=== PATIENT | male | born 1945 | race African-American/Black ===

== ENCOUNTER 2020-08-25 10:06 | Inpatient (IN) | payer BC ==
[~2020-08-25] VITALS: Ht 170.2 cm; Wt 89.8 kg
[2020-08-25 10:52] VITALS: BP 161/66
--- NOTE | 2020-08-25 10:57 | Emergency Room Report ---
History of Present Illness General Chief Complaint: Upper Respiratory Illness Source: Patient Present Illness HPI Disclaimer: Please note that this report is being documented using [employer] technology. This can lead to erroneous entry secondary to incorrect interpretation by the dictating instrument. HPI: 75-year-old male history of diabetes and hypertension presents for evaluation of shortness of breath. He reports 1 week of fatigue, decreased appetite, cough and shortness of breath that is progressively worse. Tested for COVID-19 outpatient 2 days ago but results are not yet available. Subjective fevers noted. Reports chills. Saturating 80% on initial triage. Non-smoker. No history of COPD or lung disease. Does not use inhalers. Denies chest pain, palpitations. PMH: Hypertension, diabetes PSH: Reviewed Allergies: Reviewed Social Hx: Non-smoker Allergies: Coded Allergies: No Known Allergies (Unverified , 08/25/20) COVID-19 Screening Contact w/high risk pt: Yes Experienced COVID-19 symptoms?: Yes COVID-19 Testing performed HOSPITAL INSURANCE REPRESENTATIVE: No Nursing Documentation-PMH Hx Hypertension: Yes Hx Diabetes: Yes Review of Systems All Other Systems: negative except mentioned in HPI Physical Exam Vital Signs Date Time Temp Pulse Resp B/P (MAP) Pulse Ox O2 Delivery O2 Flow Rate FiO2 08/25/20 10:48 98.4 79 24 161/66 (97) 80 Room Air General: Awake and alert, no acute distress HEENT: NC/AT. EOMI. Cardiovascular: RRR. S1 and S2 normal. No murmur appreciated Resp: Tachypnea. Increased work of breathing. No cough. No wheezes. Faint crackles bilaterally. 80% on room air improved to 92% on nasal cannula. Abdomen: Abdomen is soft, nondistended. Nontender Skin: Intact. No abrasions, laceration or rash over the exposed skin MSK: Normal tone and bulk. Moving all extremities. No obvious deformity. Neuro: Awake and alert. Mentating appropriately. Procedures Critical Care Time Critical Care Time Total critical care time: Approximately 45 minutes Due to a high probability of clinically significant, life threatening deterior ation, the patient required the highest level of preparedness to intervene emergently and I personally spent this critical care time directly and personally managing the patient. This critical care time included obtaining a history, examining the patient, pulse oximetry, ordering and reviewing studies, ordering treatments, evaluating response to treatment and updating management pl an as needed, frequent reassessment and discussion with other providers as well as arranging for ultimate disposition. This critical to care time was performed to assess and manage the high probability of life-threatening deterioration that could result in multiorgan failure. This critical care time is separate from the separately billable procedures and treating other patients. Medical Decision Making Diagnostic Impression: Primary Impression: COVID-19 Additional Impressions: Hypoxia Pneumonia Elevated d-dimer ER Course Is a 75-year-old male presenting for evaluation of shortness of breath fatigue and overall flulike illness. Concern for COVID-19, influenza, pneumonia, viral syndrome among others. Patient arrived hypoxic saturating 80% on room air but improved with nasal cannula. Bilateral infiltrates on chest x-ray concerning for pneumonia. Antibiotics are started. No white count but there is a neutrophil predominance. Chemistry shows critically low potassium of 2.6. Patient started on IV and oral replacement. Renal function within normal limits as is lactic acid and troponin. Inflammatory markers are positive and rapid COVID-19 swab is positive. Urinalysis unremarkable. D-dimer slightly elevated 0.97 patient was given Lovenox. Admitted to Dr. Combs who is the assigned hospitalist of the patient's health plan. Laboratory Tests Test 08/25/20 11:30 White Blood Count 7.8 K/UL (4.8-10.8) Red Blood Count 4.18 M/UL (4.70-6.10) L Hemoglobin 12.8 G/DL (14.2-18.0) L Hematocrit 34.9 % (42.0-52.0) L Mean Corpuscular Volume 84 FL (80-99) Mean Corpuscular Hemoglobin 30.5 PG (27.0-31.0) Mean Corpuscular Hemoglobin Concent 36.6 G/DL (32.0-36.0) H Red Cell Distribution Width 13.4 % (11.6-14.8) Platelet Count 377 K/UL (150-450) Mean Platelet Volume 6.7 FL (6.5-10.1) Neutrophils (%) (Auto) 85.0 % (45.0-75.0) H Lymphocytes (%) (Auto) 10.0 % (20.0-45.0) L Monocytes (%) (Auto) 5.0 % (1.0-10.0) Eosinophils (%) (Auto) % (0.0-3.0) Basophils (%) (Auto) % (0.0-2.0) Prothrombin Time 10.5 SEC (9.30-11.50) Prothrombin Time INR 0.9 (0.9-1.1) Activated Partial Thromboplast Time 36 SEC (23-33) H D-Dimer 0.97 mg/L FEU (0.00-0.49) H Urine Color Yellow Urine Appearance Clear Urine pH 6 (4.5-8.0) Urine Specific [place] 1.015 (1.005-1.035) Urine Protein 4+ (NEGATIVE) H Urine Glucose (UA) 4+ (NEGATIVE) H Urine Ketones 2+ (NEGATIVE) H Urine Blood 4+ (NEGATIVE) H Urine Nitrite Negative (NEGATIVE) Urine Bilirubin Negative (NEGATIVE) Urine Urobilinogen 1 MG/DL (0.0-1.0) H Urine Leukocyte Esterase Negative (NEGATIVE) Urine RBC 30-40 /HPF (0 - 0) H Urine WBC 0-2 /HPF (0 - 0) Urine Squamous Epithelial Cells Occasional /LPF Urine Bacteria Few /HPF (NONE) Sodium Level 134 MMOL/L (136-145) L Potassium Level 2.6 MMOL/L (3.5-5.1) *L Chloride Level 97 MMOL/L (98-107) L Carbon Dioxide Level 28 MMOL/L (21-32) Anion Gap 10 mmol/L (5-15) Blood Urea Nitrogen 10 mg/dL (7-18) Creatinine 0.9 MG/DL (0.55-1.30) Estimated Glomerular Filtration Rate > 60 mL/min (>60) Glucose Level 285 MG/DL (74-106) H Lactic Acid Level 1.70 mmol/L (0.4-2.0) Calcium Level 8.6 MG/DL (8.5-10.1) Phosphorus Level 2.7 MG/DL (2.5-4.9) Magnesium Level 1.6 MG/DL (1.8-2.4) L Ferritin 329 NG/ML (8-388) Total Bilirubin 0.5 MG/DL (0.2-1.0) Aspartate Amino Transferase (AST) 42 U/L (15-37) H Alanine Aminotransferase (ALT) 32 U/L (12-78) Alkaline Phosphatase 118 U/L (46-116) H Lactate Dehydrogenase 321 U/L (81-234) H Total Creatine Kinase 307 U/L (26-308) Creatine Kinase MB 0.5 NG/ML (0.0-3.6) Creatine Kinase MB Relative Index 0.1 Troponin I 0.000 ng/mL (0.000-0.056) C-Reactive Protein, Quantitative 42.0 mg/dL (0.00-0.90) H Pro-B-Type Natriuretic Peptide 727 pg/mL (0-125) H Total Protein 7.5 G/DL (6.4-8.2) Albumin 2.1 G/DL (3.4-5.0) L Globulin 5.4 g/dL Lipase 64 U/L (73-393) L Microbiology Date/Time Source Procedure Growth Status 08/25/20 11:30 Nasopharynx SARS-CoV-2 RdRp Gene Assay - Final Complete 08/25/20 11:20 Nasal Nares - Final Complete 08/25/20 11:20 Nasal Nares - Final Complete EKG Diagnostic Results Troponin ordered: Yes When was troponin ordered?: Aug 25, 2020 EKG Time: 11:46 Rate: normal Rhythm: NSR ST Segments: no acute changes Other Impression Sinus rhythm, normal axis, prolonged QTC at [address] segment changes. Rhythm Strip Diag. Results Rhythm Strip Time: 11:46 EP Interpretation: yes Rate: 75 Rhythm: NSR, no PVC's, no ectopy Chest X-Ray Diagnostic Results Chest X-Ray Diagnostic Results : Chest X-Ray Ordered: Yes # of Views/Limited/Complete: 1 View Indication: Shortness of Breath EP Interpretation: Yes Interpretation: no effusion, no pneumothorax, other - Bilateral infiltrates Impression: Other - Bilateral pneumonia Electronically Signed by: Electronically signed by Dr. Ney Walker MD Last Vital Signs Date Time Temp Pulse Resp B/P (MAP) Pulse Ox O2 Delivery O2 Flow Rate FiO2 08/25/20 10:52 79 24 Room Air 08/25/20 10:52 98.4 161/66 80 Disposition: ADMITTED INPATIENT Condition: Serious Referrals: NON PHYSICIAN (PCP) Ney Walker MD Aug 25, 2020 10:57
[2020-08-25] MEDS ORDERED: dexAMETHasone 10mg/ml Inj IV ONE (11:00)
[2020-08-25] MEDS ORDERED: Azithromycin 500 MG in NS 275 ML IVPB ONE (11:00)
[2020-08-25] MEDS ORDERED: cefTRIAXone 1 GM in NS 55 ML IV ONE (11:00)
[2020-08-25 11:46] LABS: HEMATOCRIT 34.9 % (42.0-52.0); HEMOGLOBIN 12.8 G/DL (14.2-18.0); MEAN CORPUSCULAR VOLUME 84 FL (80-99); PLATELET COUNT 377 K/UL (150-450); RED BLOOD COUNT 4.18 M/UL (4.70-6.10); RED CELL DISTRIBUTION WIDTH 13.4 % (11.6-14.8); WHITE BLOOD COUNT 7.8 K/UL (4.8-10.8)
[2020-08-25 11:50] LABS: APPEARANCE,URINE CLEAR; BILIRUBIN, URINE NEGATIVE (NEGATIVE); GLUCOSE, URINE (UA) 4+ (NEGATIVE); KETONES,URINE 2+ (NEGATIVE); LEUKOCYTE ESTERASE ,URINE NEGATIVE (NEGATIVE); NITRITE,URINE NEGATIVE (NEGATIVE); PH,URINE 6 (4.5-8.0); PROTEIN,URINE 4+ (NEGATIVE); UROBILINOGEN,URINE 1 MG/DL (0.0-1.0)
[2020-08-25 11:52] LABS: COLOR,URINE YELLOW
[2020-08-25 11:57] LABS: INR 0.9 (0.9-1.1)
[2020-08-25] MEDS ORDERED: Enoxaparin 60mg Inj SUBQ ONE (12:15)
[2020-08-25 12:29] LABS: ALANINE AMINOTRANSFERASE 32 U/L (12-78); ALBUMIN 2.1 G/DL (3.4-5.0); ALKALINE PHOSPHATASE 118 U/L (46-116); ANION GAP 10 mmol/L (5-15); ASPARTATE AMINO TRANSFERASE 42 U/L (15-37); BILIRUBIN,TOTAL 0.5 MG/DL (0.2-1.0); BLOOD UREA NITROGEN 10 mg/dL (7-18); CALCIUM 8.6 MG/DL (8.5-10.1); CARBON DIOXIDE 28 MMOL/L (21-32); CHLORIDE 97 MMOL/L (98-107); CKMB 0.5 NG/ML (0.0-3.6); CREATINE KINASE 307 U/L (26-308); CREATININE 0.9 MG/DL (0.55-1.30); FERRITIN 329 NG/ML (8-388); LACTATE DEHYDROGENASE 321 U/L (81-234); PHOSPHORUS 2.7 MG/DL (2.5-4.9); SODIUM 134 MMOL/L (136-145)
[2020-08-25 12:30] LABS: POTASSIUM 2.6 MMOL/L (3.5-5.1)
[2020-08-25 13:30] VITALS: BP 159/76
--- NOTE | 2020-08-25 13:33 | Diagnostic Imaging Report ---
Indication: Shortness of breath Technique: One view of the chest Comparison: none Findings: Bilateral infiltrates in a peribronchovascular distribution are demonstrated. The heart size is upper limits normal. The pleural spaces are clear Impression: Bilateral infiltrates, likely multifocal pneumonia, quite possibly viral
[2020-08-25 18:05] VITALS: BP 169/80
[2020-08-25 20:00] VITALS: BP 157/96
[2020-08-25] MEDS: NovoLOG Insulin Flexpen SUBQ SCH (21:47)
[2020-08-25] MEDS ORDERED: Loading Dose:Remdesivir 200mg/NS 210ml IV SCH ×2 (22:00)
[2020-08-26] VITALS: BP 145/81
[2020-08-26 04:00] VITALS: BP 130/69
[2020-08-26] MEDS ORDERED: ACETAMINOPHEN-1 EAC1 ORAL (05:32)
[2020-08-26] MEDS ORDERED: IBUPROFEN600 M1 ORAL (05:32)
[2020-08-26] MEDS ORDERED: METOPROLOL SUC100 MG ORAL (05:32)
[2020-08-26] MEDS ORDERED: GLIPIZIDE5 MG ORAL (05:32)
[2020-08-26] MEDS ORDERED: JANUMET 50-1,01 EACH ORAL (05:32)
[2020-08-26] MEDS ORDERED: PROSCAR5 MG ORAL (05:32)
[2020-08-26] MEDS: NovoLOG Insulin Flexpen SUBQ SCH ×4 (06:27→21:04)
[2020-08-26 06:53] LABS: BASOPHILS % (AUTO) 0.4 % (0.0-2.0); HEMATOCRIT 36.4 % (42.0-52.0); HEMOGLOBIN 12.7 G/DL (14.2-18.0); LYMPHOCYTES % (AUTO) 12.6 % (20.0-45.0); MEAN CORPUSCULAR VOLUME 88 FL (80-99); MONOCYTES % (AUTO) 8.8 % (1.0-10.0); NEUTROPHILS % (AUTO) 78.3 % (45.0-75.0); PLATELET COUNT 422 K/UL (150-450); RED BLOOD COUNT 4.12 M/UL (4.70-6.10); RED CELL DISTRIBUTION WIDTH 13.1 % (11.6-14.8)
[2020-08-26 07:54] LABS: ALANINE AMINOTRANSFERASE 44 U/L (12-78); ALBUMIN/GLOBULIN RATIO 0.4 (1.0-2.7); ALKALINE PHOSPHATASE 125 U/L (46-116); ASPARTATE AMINO TRANSFERASE 48 U/L (15-37); BILIRUBIN,TOTAL 0.4 MG/DL (0.2-1.0); BLOOD UREA NITROGEN 16 mg/dL (7-18); CALCIUM 9.3 MG/DL (8.5-10.1); CARBON DIOXIDE 26 MMOL/L (21-32); CHLORIDE 99 MMOL/L (98-107); CREATININE 0.9 MG/DL (0.55-1.30); FERRITIN 361 NG/ML (8-388); SODIUM 138 MMOL/L (136-145)
[2020-08-26 08:00] VITALS: BP 121/86
[2020-08-26] MEDS: Enoxaparin 40mg Inj SUBQ SCH (09:08)
--- NOTE | 2020-08-26 10:37 | History and Physical ---
History of Present Illness General Date patient seen: Aug 26, 2020 Time patient seen: 08:00 Reason for Hospitalization: Upper Respiratory Illness Present Illness HPI 75 years old male, with past medical history of diabetes mellitus, hypertension, presented for evaluation due to shortness of breath. Patient reported one week of generalized weakness, fatigue, cough, worsening shortness of breath and decreased appetite. Patient was tested for COVID-19 two days ago in outpatient setting, but results not available yet. He reported subjective fever and chills. He denied chest pain or palpitations. He denied smoking . No history of COPD or lung disorder. Upon evaluation patient was hypoxic , slightly tachypneic with respiratory rate 24 ,blood pressure was elevated 161/66. Rapid COVID-19 was positive. Chest x-ray revealed bilateral infiltrates, likely multifocal pneumonia Laboratory work-up revealed no leukocytosis , stable hemoglobin , hematocrit and platelet count. Troponin negative, ECG revealed SR, no acute ischemic changes. D-dimer 0.97, LDH 321, CRP 42, ferritin 329. Chemistry showed hypokalemia with potassium 2.6. Stable renal parameters. Glucose 285. Urinalysis revealed +4 protein , +4 glucose, no evidence of urinary tract infection. In emergency department patient was placed on supplemental oxygen. He received empiric antibiotics/ ceftriaxone and azithromycin/, Lovenox , dexamethasone, potassium replacement and admitted for further management. Allergies: Coded Allergies: No Known Allergies (Unverified , 08/25/20) COVID-19 Screening Contact w/high risk pt: No Experienced COVID-19 symptoms?: Yes Coronavirus symptoms experienc: Shortness of Breath Medication History Scheduled Finasteride* (Proscar*), 5 MG ORAL DAILY, (Reported) Glipizide* (Glipizide*), 10 MG ORAL BIDAC, (Reported) Metoprolol Succinate* (Metoprolol Succinate*), 100 MG ORAL DAILY, (Reported) Sitagliptin Phos/Metformin Hcl (Janumet 50-1,000 Mg Tablet), 1 TAB ORAL TWICE A DAY, (Reported) Scheduled PRN Acetaminophen With Codeine (T#3) (Tylenol #3 Tab*), 1 TAB ORAL Q6H PRN for For Pain, (Reported) Ibuprofen* (Motrin*), 600 MG ORAL Q8H PRN for FOR PAIN, (Reported) Patient History Healthcare decision maker Resuscitation status Advanced Directive on File Review of Systems Constitutional: Reports: weakness - fatigue, Eye: Reports: no symptoms ENT: Reports: no symptoms Respiratory: Reports: see HPI, cough, shortness of breath Cardiovascular: Reports: no symptoms Gastrointestinal: Reports: other - poor appetite Genitourinary: Reports: no symptoms Musculoskeletal: Reports: no symptoms Skin: Reports: no symptoms Psychiatric: Reports: no symptoms Neurological: Reports: no symptoms Endocrine: Reports: other - hx of DM, Hematologic/Lymphatic: Reports: no symptoms Physical Exam General Appearance: no apparent distress Lines, tubes and drains: peripheral HEENT: normocephalic, atraumatic, anicteric, mucous membranes moist, PERRL, other - O2 5 L via NC Neck: supple Respiratory/Chest: chest wall non-tender, lungs clear, no accessory muscle use Cardiovascular/Chest: normal peripheral pulses, normal rate, regular rhythm - SR with some PAC Abdomen: normal bowel sounds, non tender, soft Extremities: normal range of motion, no calf tenderness, normal capillary refill Skin Exam: warm/dry 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, no motor/sensory deficits, alert, oriented x 3, responsive Musculoskeletal: normal muscle bulk Last 24 Hour Vital Signs Date Time Temp Pulse Resp B/P (MAP) Pulse Ox O2 Delivery O2 Flow Rate FiO2 08/26/20 07:43 Nasal Cannula 5.0 08/26/20 04:00 97.5 69 20 130/69 (89) 92 08/26/20 04:00 69 08/26/20 00:00 97.0 79 20 145/81 (102) 92 08/26/20 00:00 79 08/25/20 21:00 Nasal Cannula 5.0 08/25/20 20:00 97.9 87 20 157/96 (116) 97 08/25/20 20:00 87 08/25/20 18:05 98.2 88 20 169/80 (109) 96 08/25/20 17:32 Nasal Cannula 5.0 08/25/20 13:30 98.4 80 22 159/76 95 Nasal Cannula 3.0 08/25/20 10:52 79 24 Room Air 08/25/20 10:52 98.4 79 24 161/66 80 Room Air 08/25/20 10:48 98.4 79 24 161/66 (97) 80 Room Air Laboratory Tests Test 08/25/20 11:30 08/25/20 21:37 08/26/20 04:05 08/26/20 06:21 White Blood Count 7.8 K/UL (4.8-10.8) 6.0 K/UL (4.8-10.8) Red Blood Count 4.18 M/UL (4.70-6.10) L 4.12 M/UL (4.70-6.10) L Hemoglobin 12.8 G/DL (14.2-18.0) L 12.7 G/DL (14.2-18.0) L Hematocrit 34.9 % (42.0-52.0) L 36.4 % (42.0-52.0) L Mean Corpuscular Volume 84 FL (80-99) 88 FL (80-99) Mean Corpuscular Hemoglobin 30.5 PG (27.0-31.0) 30.8 PG (27.0-31.0) Mean Corpuscular Hemoglobin Concent 36.6 G/DL (32.0-36.0) H 34.8 G/DL (32.0-36.0) Red Cell Distribution Width 13.4 % (11.6-14.8) 13.1 % (11.6-14.8) Platelet Count 377 K/UL (150-450) 422 K/UL (150-450) Mean Platelet Volume 6.7 FL (6.5-10.1) 6.3 FL (6.5-10.1) L Neutrophils (%) (Auto) 85.0 % (45.0-75.0) H 78.3 % (45.0-75.0) H Lymphocytes (%) (Auto) 10.0 % (20.0-45.0) L 12.6 % (20.0-45.0) L Monocytes (%) (Auto) 5.0 % (1.0-10.0) 8.8 % (1.0-10.0) Eosinophils (%) (Auto) % (0.0-3.0) 0.0 % (0.0-3.0) Basophils (%) (Auto) % (0.0-2.0) 0.4 % (0.0-2.0) Prothrombin Time 10.5 SEC (9.30-11.50) Prothromb Time International Ratio 0.9 (0.9-1.1) Activated Partial Thromboplast Time 36 SEC (23-33) H D-Dimer 0.97 mg/L FEU (0.00-0.49) H Urine Color Yellow Urine Appearance Clear Urine pH 6 (4.5-8.0) Urine Specific [place] 1.015 (1.005-1.035) Urine Protein 4+ (NEGATIVE) H Urine Glucose (UA) 4+ (NEGATIVE) H Urine Ketones 2+ (NEGATIVE) H Urine Blood 4+ (NEGATIVE) H Urine Nitrite Negative (NEGATIVE) Urine Bilirubin Negative (NEGATIVE) Urine Urobilinogen 1 MG/DL (0.0-1.0) H Urine Leukocyte Esterase Negative (NEGATIVE) Urine RBC 30-40 /HPF (0 - 0) H Urine WBC 0-2 /HPF (0 - 0) Urine Squamous Epithelial Cells Occasional /LPF Urine Bacteria Few /HPF (NONE) Sodium Level 134 MMOL/L (136-145) L 138 MMOL/L (136-145) Potassium Level 2.6 MMOL/L (3.5-5.1) *L 3.0 MMOL/L (3.5-5.1) L Chloride Level 97 MMOL/L (98-107) L 99 MMOL/L (98-107) Carbon Dioxide Level 28 MMOL/L (21-32) 26 MMOL/L (21-32) Anion Gap 10 mmol/L (5-15) Blood Urea Nitrogen 10 mg/dL (7-18) 16 mg/dL (7-18) Creatinine 0.9 MG/DL (0.55-1.30) 0.9 MG/DL (0.55-1.30) Estimat Glomerular Filtration Rate > 60 mL/min (>60) > 60 mL/min (>60) Glucose Level 285 MG/DL (74-106) H 319 MG/DL (74-106) H Lactic Acid Level 1.70 mmol/L (0.4-2.0) Calcium Level 8.6 MG/DL (8.5-10.1) 9.3 MG/DL (8.5-10.1) Phosphorus Level 2.7 MG/DL (2.5-4.9) Magnesium Level 1.6 MG/DL (1.8-2.4) L Ferritin 329 NG/ML (8-388) 361 NG/ML (8-388) Total Bilirubin 0.5 MG/DL (0.2-1.0) 0.4 MG/DL (0.2-1.0) Aspartate Amino Transf (AST/SGOT) 42 U/L (15-37) H 48 U/L (15-37) H Alanine Aminotransferase (ALT/SGPT) 32 U/L (12-78) 44 U/L (12-78) Alkaline Phosphatase 118 U/L (46-116) H 125 U/L (46-116) H Lactate Dehydrogenase 321 U/L (81-234) H Total Creatine Kinase 307 U/L (26-308) Creatine Kinase MB 0.5 NG/ML (0.0-3.6) Creatine Kinase MB Relative Index 0.1 Troponin I 0.000 ng/mL (0.000-0.056) C-Reactive Protein, Quantitative 42.0 mg/dL (0.00-0.90) H 27.7 mg/dL (0.00-0.90) H Pro-B-Type Natriuretic Peptide 727 pg/mL (0-125) H Total Protein 7.5 G/DL (6.4-8.2) 7.3 G/DL (6.4-8.2) Albumin 2.1 G/DL (3.4-5.0) L 2.0 G/DL (3.4-5.0) L Globulin 5.4 g/dL 5.3 g/dL Lipase 64 U/L (73-393) L POC Whole Blood Glucose 353 MG/DL (74-106) H 313 MG/DL (74-106) H Direct Bilirubin 0.1 MG/DL (0.0-0.3) Albumin/Globulin Ratio 0.4 (1.0-2.7) L Microbiology Date/Time Source Procedure Growth Status 08/25/20 11:30 Nasopharynx SARS-CoV-2 RdRp Gene Assay - Final Complete 08/25/20 11:20 Nasal Nares - Final Complete 08/25/20 11:20 Nasal Nares - Final Complete Height (Feet): 5 Height (Inches): 7.00 Weight (Pounds): 198 Medications Current Medications Medications (Trade) Dose Ordered Sig/Orion Route PRN Reason Start Time Stop Time Status Last Admin Dose Admin Dexamethasone Sodium Phosphate (Decadron 10mg/ ml Inj) 6 mg DAILY IV 08/26/20 11:00 09/03/20 09:01 Dextrose (Dextrose 50%) 25 ml Q30M PRN IV Hypoglycemia 08/25/20 20:00 11/23/20 19:59 Dextrose (Dextrose 50%) 50 ml Q30M PRN IV Hypoglycemia 08/25/20 20:00 11/23/20 19:59 Enoxaparin Sodium (Lovenox) 40 mg DAILY SUBQ 08/26/20 09:00 11/24/20 08:59 08/26/20 09:08 Insulin Aspart (NovoLOG) BEFORE MEALS AND HS SUBQ 08/25/20 21:00 11/23/20 20:59 08/26/20 06:27 Remdesivir 100 mg/ Sodium Chloride 250 ml @ 250 mls/hr Q24H IV 08/26/20 22:00 08/29/20 22:59 Assessment/Plan Assessment/Plan: ASSESSMENT COVID 19 pneumonia Hypoxia Hypokalemia DM with hyperglycemia HTN PLAN OF CARE tele O2 titrate to keep sat > 92% started on Dexamethasone and Remdesivivr (monitor LFT, renal paramerts) ID follows a/c with Lovenox ( PPX dose) Venous Duplex BLE fup CXR fup inflammatory markers Albuterol MDI prn replace K, check Mg, replace Mg as needed BS management with SSI diabetic diet and diabetic teaching check HgA1c likely higher requirements for insulin given steroids BP management supportive care case discussed and evaluated by supervising physician Zoë Martinez NP Aug 26, 2020 10:37
[2020-08-26] MEDS: dexAMETHasone 10mg/ml Inj IV SCH (11:02)
[2020-08-26 12:00] VITALS: BP 123/87
[2020-08-26] MEDS ORDERED: ACETAMINOPHEN325 M1 ORAL (12:39)
[2020-08-26 16:00] VITALS: BP 124/76
[2020-08-26 20:00] VITALS: BP 161/92
[2020-08-26] MEDS: Maintenance Dose:Remdesivir 100mg/NS 230ml x 4 Doses IV SCH ×2 (21:48)
[2020-08-26] MEDS ORDERED: NovoLOG Insulin Flexpen SUBQ ONE (23:00)
[2020-08-27] VITALS: BP 161/98
[2020-08-27 04:00] VITALS: BP 165/87
[2020-08-27] MEDS: Albuterol 90mcg Inhaler 8gm INH PRN ×2 (05:11→21:33)
[2020-08-27 05:22] LABS: BASOPHILS % (AUTO) 1.2 % (0.0-2.0); HEMATOCRIT 34.7 % (42.0-52.0); HEMOGLOBIN 12.5 G/DL (14.2-18.0); LYMPHOCYTES % (AUTO) 8.5 % (20.0-45.0); MEAN CORPUSCULAR VOLUME 85 FL (80-99); NEUTROPHILS % (AUTO) 81.3 % (45.0-75.0); PLATELET COUNT 470 K/UL (150-450); RED BLOOD COUNT 4.08 M/UL (4.70-6.10); RED CELL DISTRIBUTION WIDTH 14.9 % (11.6-14.8)
[2020-08-27 05:37] LABS: ALANINE AMINOTRANSFERASE 56 U/L (12-78); ALBUMIN/GLOBULIN RATIO 0.4 (1.0-2.7); ALKALINE PHOSPHATASE 111 U/L (46-116); ANION GAP 5 mmol/L (5-15); ASPARTATE AMINO TRANSFERASE 42 U/L (15-37); BILIRUBIN,DIRECT < 0.1 MG/DL (0.0-0.3); BILIRUBIN,TOTAL 0.3 MG/DL (0.2-1.0); BLOOD UREA NITROGEN 16 mg/dL (7-18); CALCIUM 8.6 MG/DL (8.5-10.1); CARBON DIOXIDE 29 MMOL/L (21-32); CHLORIDE 102 MMOL/L (98-107); CREATININE 0.8 MG/DL (0.55-1.30); POTASSIUM 2.9 MMOL/L (3.5-5.1); SODIUM 136 MMOL/L (136-145)
[2020-08-27] MEDS: NovoLOG Insulin Flexpen SUBQ SCH ×4 (05:57→21:32)
[2020-08-27 08:00] VITALS: BP 153/85
--- NOTE | 2020-08-27 08:10 | Pulmonology Progress Note ---
Subjective Allergies: Coded Allergies: No Known Allergies (Unverified , 08/25/20) Subjective c/o SOB on NRM occasional dry cough no fevers no leukocytosis denies CP Objective Last 24 Hour Vital Signs Date Time Temp Pulse Resp B/P (MAP) Pulse Ox O2 Delivery O2 Flow Rate FiO2 08/27/20 04:00 79 08/27/20 04:00 96.8 81 20 165/87 (113) 94 08/27/20 00:00 72 08/27/20 00:00 97.2 74 20 161/98 (119) 94 08/26/20 21:00 Nasal Cannula 5.0 08/26/20 20:00 81 08/26/20 20:00 97.4 75 20 161/92 (115) 94 08/26/20 16:00 98.4 70 20 124/76 (92) 94 08/26/20 16:00 88 08/26/20 12:00 82 08/26/20 12:00 98.7 74 18 123/87 (99) 94 Intake and Output 08/26/20 08/27/20 19:00 07:00 Intake Total 1800 ml Balance 1800 ml Intake Oral 1800 ml # Voids 7 Objective General Appearance: no apparent distress Lines, tubes and drains: peripheral HEENT: normocephalic, atraumatic, anicteric, mucous membranes moist, PERRL, on NRM Neck: supple Respiratory/Chest: chest wall non-tender, lungs with decreased air intake , no accessory muscle use Cardiovascular/Chest: normal peripheral pulses, normal rate, regular rhythm - SR Abdomen: normal bowel sounds, non tender, soft Extremities: normal range of motion, no calf tenderness, normal capillary refill Skin Exam: warm/dry 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, no motor/sensory deficits, alert, oriented x 3, responsive Musculoskeletal: normal muscle bulk Microbiology Date/Time Source Procedure Growth Status 08/25/20 11:30 Nasopharynx SARS-CoV-2 RdRp Gene Assay - Final Complete 08/25/20 11:20 Nasal Nares - Final Complete 08/25/20 11:20 Nasal Nares - Final Complete Laboratory Tests 08/26/20 11:13: POC Whole Blood Glucose 375H 08/26/20 16:15: POC Whole Blood Glucose 345H 08/26/20 20:48: POC Whole Blood Glucose [Pending] 08/26/20 21:51: POC Whole Blood Glucose 365H 08/26/20 23:01: POC Whole Blood Glucose 313H 08/27/20 04:30: White Blood Count 9.0, Red Blood Count 4.08L, Hemoglobin 12.5L, Hematocrit 34.7L , Mean Corpuscular Volume 85, Mean Corpuscular Hemoglobin 30.6, Mean Corpuscular Hemoglobin Concent 36.0, Red Cell Distribution Width 14.9H, Platelet Count 470H , Mean Platelet Volume 6.4L, Neutrophils (%) (Auto) 81.3H, Lymphocytes (%) (Auto) 8.5L, Monocytes (%) (Auto) 9.0, Eosinophils (%) (Auto) 0.0, Basophils (%) (Auto) 1.2, Sodium Level 136, Potassium Level 2.9L, Chloride Level 102, Carbon Dioxide Level 29, Anion Gap 5, Blood Urea Nitrogen 16, Creatinine 0.8, Estimat Glomerular Filtration Rate > 60, Glucose Level 229H, Hemoglobin A1c 12.5H, Calcium Level 8.6, Total Bilirubin 0.3, Direct Bilirubin < 0.1, Aspartate Amino Transf (AST/SGOT) 42H, Alanine Aminotransferase (ALT/SGPT) 56, Alkaline Phosphatase 111, C-Reactive Protein, Quantitative 15.5H, Total Protein 6.7, Albumin 2.0L, Globulin 4.7, Albumin/Globulin Ratio 0.4L 08/27/20 05:49: POC Whole Blood Glucose 231H Current Medications Medications (Trade) Dose Ordered Sig/Orion Route PRN Reason Start Time Stop Time Status Last Admin Dose Admin Albuterol Sulfate (Proventil MDI) 2 puff Q4H PRN INH Shortness of Breath 08/26/20 11:30 11/24/20 11:29 08/27/20 05:11 Dexamethasone Sodium Phosphate (Decadron 10mg/ ml Inj) 6 mg DAILY IV 08/26/20 11:00 09/03/20 09:01 08/26/20 11:02 Dextrose (Dextrose 50%) 25 ml Q30M PRN IV Hypoglycemia 08/25/20 20:00 11/23/20 19:59 Dextrose (Dextrose 50%) 50 ml Q30M PRN IV Hypoglycemia 08/25/20 20:00 11/23/20 19:59 Enoxaparin Sodium (Lovenox) 40 mg DAILY SUBQ 08/26/20 09:00 11/24/20 08:59 08/26/20 09:08 Insulin Aspart (NovoLOG) BEFORE MEALS AND HS SUBQ 08/25/20 21:00 11/23/20 20:59 08/27/20 05:57 Remdesivir 100 mg/ Sodium Chloride 250 ml @ 250 mls/hr Q24H IV 08/26/20 22:00 08/29/20 22:59 08/26/20 21:48 Assessment/Plan Assessment/Plan ASSESSMENT COVID 19 pneumonia Acute hypoxemic resp failure due to COVID 19 PNA Hypokalemia /persistent DM with hyperglycemia/DMOOC HTN PLAN OF CARE tele O2 titrate to keep sat > 92%, now on 100% NRM started on Dexamethasone and Remdesivir (monitor LFT, renal paramerts-stable for now ) ID follows a/c with Lovenox ( PPX dose) Venous Duplex BLE fup CXR fup inflammatory markers: CRP down to 15.5 Albuterol MDI prn further replace K, check K and Mg in AM ( Mg 08/26 stable) diabetic diet and diabetic teaching [id number] not at goal add Levemir, continue SSI likely higher requirements for insulin given steroids BP management supportive care case discussed and evaluated by supervising physician Zoë Martinez NP Aug 27, 2020 08:10
[2020-08-27] MEDS: dexAMETHasone 10mg/ml Inj IV SCH (09:18)
[2020-08-27] MEDS: Enoxaparin 40mg Inj SUBQ SCH (09:20)
[2020-08-27] MEDS: Levemir Flexpen SUBQ SCH (10:32)
[2020-08-27 12:00] VITALS: BP 124/71
--- NOTE | 2020-08-27 12:26 | Diagnostic Imaging Report ---
EXAM: US Duplex Bilateral Lower Extremities Veins CLINICAL HISTORY: SOB TECHNIQUE: Real-time duplex ultrasound scan of the bilateral lower extremity veins integrating B-mode two-dimensional vascular structure, Doppler spectral analysis, color flow Doppler imaging and compression. COMPARISON: No relevant prior studies available. FINDINGS: Right deep veins: Unremarkable. No DVT in the right common femoral, femoral, proximal deep femoral or popliteal veins. The veins demonstrate normal color flow, are normally compressible, with normal phasic flow and/or augmentation response. Right superficial veins: Unremarkable. No thrombus in the visualized right great saphenous vein. Left deep veins: Unremarkable. No DVT in the left common femoral, femoral, proximal deep femoral or popliteal veins. The veins demonstrate normal color flow, are normally compressible, with normal phasic flow and/or augmentation response. Left superficial veins: Unremarkable. No thrombus in the visualized left great saphenous vein. Soft tissues: No acute findings. No popliteal cyst. IMPRESSION: Normal bilateral lower extremity duplex venous ultrasound.
[2020-08-27 15:55] VITALS: BP 156/84
[2020-08-27 20:00] VITALS: BP 154/84
--- NOTE | 2020-08-27 20:29 | Infectious Diseases Prog Note ---
Assessment/Plan Assessment/Plan Full consult dictated: A) 1) covid-19 infection with pna and hypoxia 2) less likely CAP 3) pmh noted 4) allergies - nkda P) 1) dexamethasone and remdesivir 2) monitor hypoxia 3) wll f/u 4) thank you Subjective Allergies: Coded Allergies: No Known Allergies (Unverified , 08/25/20) Objective Last 24 Hour Vital Signs Date Time Temp Pulse Resp B/P (MAP) Pulse Ox O2 Delivery O2 Flow Rate FiO2 08/27/20 16:00 89 08/27/20 15:55 98.1 88 19 156/84 (108) 90 08/27/20 12:00 93 08/27/20 12:00 98.3 79 21 124/71 (88) 92 08/27/20 09:00 Non-Rebreather 15.0 08/27/20 08:00 85 08/27/20 08:00 97.9 84 22 153/85 (107) 94 08/27/20 04:00 79 08/27/20 04:00 96.8 81 20 165/87 (113) 94 08/27/20 00:00 72 08/27/20 00:00 97.2 74 20 161/98 (119) 94 08/26/20 21:00 Nasal Cannula 5.0 Height (Feet): 5 Height (Inches): 7.00 Weight (Pounds): 198 Microbiology Date/Time Source Procedure Growth Status 08/25/20 11:30 Nasopharynx SARS-CoV-2 RdRp Gene Assay - Final Complete 08/25/20 11:30 Blood Blood Culture - Preliminary NO GROWTH AFTER 48 HOURS Resulted 08/25/20 11:30 Blood Blood Culture - Preliminary NO GROWTH AFTER 48 HOURS Resulted 08/25/20 11:20 Nasal Nares - Final Complete 08/25/20 11:20 Nasal Nares - Final Complete Laboratory Tests Test 08/26/20 20:48 08/26/20 21:51 08/26/20 23:01 08/27/20 04:30 POC Whole Blood Glucose Pending 365 MG/DL (74-106) H 313 MG/DL (74-106) H White Blood Count 9.0 K/UL (4.8-10.8) Red Blood Count 4.08 M/UL (4.70-6.10) L Hemoglobin 12.5 G/DL (14.2-18.0) L Hematocrit 34.7 % (42.0-52.0) L Mean Corpuscular Volume 85 FL (80-99) Mean Corpuscular Hemoglobin 30.6 PG (27.0-31.0) Mean Corpuscular Hemoglobin Concent 36.0 G/DL (32.0-36.0) Red Cell Distribution Width 14.9 % (11.6-14.8) H Platelet Count 470 K/UL (150-450) H Mean Platelet Volume 6.4 FL (6.5-10.1) L Neutrophils (%) (Auto) 81.3 % (45.0-75.0) H Lymphocytes (%) (Auto) 8.5 % (20.0-45.0) L Monocytes (%) (Auto) 9.0 % (1.0-10.0) Eosinophils (%) (Auto) 0.0 % (0.0-3.0) Basophils (%) (Auto) 1.2 % (0.0-2.0) Sodium Level 136 MMOL/L (136-145) Potassium Level 2.9 MMOL/L (3.5-5.1) L Chloride Level 102 MMOL/L (98-107) Carbon Dioxide Level 29 MMOL/L (21-32) Anion Gap 5 mmol/L (5-15) Blood Urea Nitrogen 16 mg/dL (7-18) Creatinine 0.8 MG/DL (0.55-1.30) Estimat Glomerular Filtration Rate > 60 mL/min (>60) Glucose Level 229 MG/DL (74-106) H Hemoglobin A1c 12.5 % (4.3-6.0) H Calcium Level 8.6 MG/DL (8.5-10.1) Total Bilirubin 0.3 MG/DL (0.2-1.0) Direct Bilirubin < 0.1 MG/DL (0.0-0.3) Aspartate Amino Transf (AST/SGOT) 42 U/L (15-37) H Alanine Aminotransferase (ALT/SGPT) 56 U/L (12-78) Alkaline Phosphatase 111 U/L (46-116) C-Reactive Protein, Quantitative 15.5 mg/dL (0.00-0.90) H Total Protein 6.7 G/DL (6.4-8.2) Albumin 2.0 G/DL (3.4-5.0) L Globulin 4.7 g/dL Albumin/Globulin Ratio 0.4 (1.0-2.7) L Test 08/27/20 05:49 08/27/20 11:49 POC Whole Blood Glucose 231 MG/DL (74-106) H 319 MG/DL (74-106) H Current Medications Medications (Trade) Dose Ordered Sig/Orion Route PRN Reason Start Time Stop Time Status Last Admin Dose Admin Albuterol Sulfate (Proventil MDI) 2 puff Q4H PRN INH Shortness of Breath 08/26/20 11:30 11/24/20 11:29 08/27/20 05:11 Dexamethasone Sodium Phosphate (Decadron 10mg/ ml Inj) 6 mg DAILY IV 08/26/20 11:00 09/03/20 09:01 08/27/20 09:18 Dextrose (Dextrose 50%) 25 ml Q30M PRN IV Hypoglycemia 08/25/20 20:00 11/23/20 19:59 Dextrose (Dextrose 50%) 50 ml Q30M PRN IV Hypoglycemia 08/25/20 20:00 11/23/20 19:59 Enoxaparin Sodium (Lovenox) 40 mg DAILY SUBQ 08/26/20 09:00 11/24/20 08:59 08/27/20 09:20 Insulin Aspart (NovoLOG) BEFORE MEALS AND HS SUBQ 08/25/20 21:00 11/23/20 20:59 08/27/20 16:48 Insulin Detemir (Levemir) 8 units Q24H SUBQ 08/27/20 09:30 11/25/20 09:29 08/27/20 10:32 Remdesivir 100 mg/ Sodium Chloride 250 ml @ 250 mls/hr Q24H IV 08/26/20 22:00 08/29/20 22:59 08/26/20 21:48 Prateek Dee MD Aug 27, 2020 20:29
[2020-08-27] MEDS: Maintenance Dose:Remdesivir 100mg/NS 230ml x 4 Doses IV SCH ×2 (21:31)
[2020-08-28] VITALS: BP 143/89
--- NOTE | 2020-08-28 00:45 | Consultation ---
DATE OF CONSULTATION: 08/27/2020 INFECTIOUS DISEASES CONSULTATION CONSULTING PHYSICIAN: Prateek Dee MD. ATTENDING PHYSICIAN: Carmelo Combs MD. REFERRING PHYSICIAN: Carmelo Combs MD and Hang Mcguire MD REASON FOR CONSULTATION: COVID-19 infection with pneumonia, rule out community-acquired pneumonia, hypoxia. CHIEF COMPLAINT: Patient's chief complaint coming to the hospital is shortness of breath, hypoxia, and COVID pneumonia. HISTORY OF PRESENT ILLNESS: This is a very pleasant 75-year-old male, who comes in to [facility] with hypoxia. Patient had saturations of 80% on admission. Patient's COVID testing was positive by nasopharyngeal rapid testing or molecular testing. Patient's chest x-ray showed he had multifocal pneumonia with bilateral infiltrates. Patient has no fevers or leukocytosis. Infectious Disease consultation is requested for this patient with COVID infection and pneumonia. Case was discussed with Dr. Mcguire and patient was started on remdesivir and steroids. Patient has less likely community-acquired pneumonia. Patient has elevated CRP as high as 42, which is improved. Patient currently is on remdesivir, steroids, and Decadron. REVIEW OF SYSTEMS: CONSTITUTIONAL: Main issue coming in was the shortness of breath, hypoxia. Patient has no fever, chills, or night sweats. HEAD AND NECK: No head pain or neck pain. CARDIAC: No chest pain. GASTROINTESTINAL: No nausea, vomiting, abdominal pain, or diarrhea. GENITOURINARY: No dysuria or frequency. PULMONARY: He came in with cough, hypoxia, shortness of breath. SKIN: No rash. PAST MEDICAL HISTORY: Patient has a past medical history of diabetes mellitus and hypertension. ALLERGIES: No known drug allergies. No antibiotic allergies. SOCIAL HISTORY: Negative for smoking, alcohol, or drug abuse. FAMILY HISTORY: Noncontributory. Negative for tuberculosis or cancer. MEDICATIONS: Upon reviewing the MAR, patient is on the following medications. He is on insulin. He is on remdesivir. He is on dexamethasone, albuterol, enoxaparin. He is on IV fluids. Outside medications noted and reconciliated. PHYSICAL EXAMINATION: VITAL SIGNS: Temperature is 98.1, pulse rate 88, respiratory rate 19, blood pressure 156/84, saturation 90% on 15 liters non-rebreather. Saturation initially was 80% on room air. GENERAL: Alert, responsive. Discussing with patient, he feels better, less short of breath, but he has had shortness of breath on 15% non-rebreather. He is in prone position, in COVID isolation. HEAD AND NECK: Oral exam, no thrush. Eye exam, no icterus. Normocephalic. Neck is supple. No JVD. HEART: Regular. No gallop or murmur. No friction rub. ABDOMEN: Soft. Positive bowel sounds. Nontender. LUNGS: Bilateral rhonchi and rales. SKIN: No rash. MUSCULOSKELETAL: No effusions. Legs are without cellulitis. PERIPHERAL VASCULAR: No gangrene or cyanosis. GENITOURINARY: No [place]. LINE SITES: Without phlebitis. NEUROLOGIC: Intact. Nonfocal. Alert and oriented. LABORATORY AND DIAGNOSTIC DATA: Creatinine 0.8. CRP is 15.5. CRP initially was high as 42.0. White count 9.0, hemoglobin 12.5. Imaging studies, chest x-ray shows bilateral infiltrates, multifocal pneumonia. COVID nasopharyngeal molecular testing was positive. ASSESSMENT AND PLAN: 1. Patient has COVID-19 infection with pneumonia with hypoxia. Less likely community-acquired pneumonia. At this time, we will continue remdesivir and dexamethasone for COVID-19 infection with pneumonia. Monitor hypoxia. Monitor chest x-ray as indicated. Monitor laboratories. Continue COVID isolation for COVID infection. 2. Diabetes. 3. Hypertension. 4. No known allergies. 5. Social history is negative. 6. Family history is noncontributory. 7. MAR was noted. 8. Case was discussed with RN. 9. Blood sugar and blood pressure treatment per primary care team. 10. Orders were noted and entered. Thank you, I will follow. Prateek Dee M.D. DR: ARSENIO JOB#: [id number] CC:
[2020-08-28 04:00] VITALS: BP 159/84
[2020-08-28] MEDS: NovoLOG Insulin Flexpen SUBQ SCH ×4 (06:01→20:57)
[2020-08-28] MEDS: Albuterol 90mcg Inhaler 8gm INH PRN (06:02)
--- NOTE | 2020-08-28 07:56 | Pulmonology Progress Note ---
Subjective Allergies: Coded Allergies: No Known Allergies (Unverified , 08/25/20) Subjective c/o SOB on NRM , occasional dry cough no fevers no leukocytosis denies CP labs pending for this am Objective Last 24 Hour Vital Signs Date Time Temp Pulse Resp B/P (MAP) Pulse Ox O2 Delivery O2 Flow Rate FiO2 08/28/20 04:00 75 08/28/20 04:00 97.7 73 22 159/84 (109) 95 08/28/20 00:00 97.7 73 22 143/89 (107) 90 08/28/20 00:00 76 08/27/20 21:00 Nasal Cannula 5.0 08/27/20 20:00 98.0 88 22 154/84 (107) 93 08/27/20 20:00 75 08/27/20 16:00 89 08/27/20 15:55 98.1 88 19 156/84 (108) 90 08/27/20 12:00 93 08/27/20 12:00 98.3 79 21 124/71 (88) 92 08/27/20 09:00 Non-Rebreather 15.0 08/27/20 08:00 85 08/27/20 08:00 97.9 84 22 153/85 (107) 94 Intake and Output 08/27/20 08/28/20 19:00 07:00 Intake Total 600 ml 600 ml Balance 600 ml 600 ml Intake Oral 600 ml 600 ml # Voids 3 2 Objective General Appearance: no apparent distress Lines, tubes and drains: peripheral HEENT: normocephalic, atraumatic, anicteric, mucous membranes moist, PERRL, on NRM Neck: supple Respiratory/Chest: chest wall non-tender, lungs with decreased air intake , no accessory muscle use Cardiovascular/Chest: normal peripheral pulses, normal rate, regular rhythm - SR Abdomen: normal bowel sounds, non tender, soft Extremities: normal range of motion, no calf tenderness, normal capillary refill Skin Exam: warm/dry 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, no motor/sensory deficits, alert, oriented x 3, responsive Musculoskeletal: normal muscle bulk Microbiology Date/Time Source Procedure Growth Status 08/25/20 11:30 Nasopharynx SARS-CoV-2 RdRp Gene Assay - Final Complete 08/25/20 11:30 Blood Blood Culture - Preliminary NO GROWTH AFTER 48 HOURS Resulted 08/25/20 11:30 Blood Blood Culture - Preliminary NO GROWTH AFTER 48 HOURS Resulted 08/25/20 11:20 Nasal Nares - Final Complete 08/25/20 11:20 Nasal Nares - Final Complete Laboratory Tests 08/27/20 11:49: POC Whole Blood Glucose 319H 08/27/20 21:29: POC Whole Blood Glucose 302H 08/28/20 05:48: POC Whole Blood Glucose 239H Current Medications Medications (Trade) Dose Ordered Sig/Orion Route PRN Reason Start Time Stop Time Status Last Admin Dose Admin Albuterol Sulfate (Proventil MDI) 2 puff Q4H PRN INH Shortness of Breath 08/26/20 11:30 11/24/20 11:29 08/28/20 06:02 Dexamethasone Sodium Phosphate (Decadron 10mg/ ml Inj) 6 mg DAILY IV 08/26/20 11:00 09/03/20 09:01 08/27/20 09:18 Dextrose (Dextrose 50%) 25 ml Q30M PRN IV Hypoglycemia 08/25/20 20:00 11/23/20 19:59 Dextrose (Dextrose 50%) 50 ml Q30M PRN IV Hypoglycemia 08/25/20 20:00 11/23/20 19:59 Enoxaparin Sodium (Lovenox) 40 mg DAILY SUBQ 08/26/20 09:00 11/24/20 08:59 08/27/20 09:20 Insulin Aspart (NovoLOG) BEFORE MEALS AND HS SUBQ 08/25/20 21:00 11/23/20 20:59 08/28/20 06:01 Insulin Detemir (Levemir) 8 units Q24H SUBQ 08/27/20 09:30 11/25/20 09:29 08/27/20 10:32 Remdesivir 100 mg/ Sodium Chloride 250 ml @ 250 mls/hr Q24H IV 08/26/20 22:00 08/29/20 22:59 08/27/20 21:31 Assessment/Plan Assessment/Plan ASSESSMENT COVID 19 pneumonia Acute hypoxemic resp failure due to COVID 19 PNA Hypokalemia /persistent DM with hyperglycemia/DMOOC HTN PLAN OF CARE tele O2 titrate to keep sat > 92%, now on 100% NRM started on Dexamethasone and Remdesivir (monitor LFT, renal paramerts-stable for now ) ID follows a/c with Lovenox ( PPX dose) Venous Duplex BLE fup CXR in am fup inflammatory markers: CRP down to 15.5 Albuterol MDI prn further replace K, check K and Mg in AM ( Mg 08/26 stable) labs pending for this am diabetic diet and diabetic teaching [id number] not at goal added Levemir, continue SSI likely higher requirements for insulin given steroids BP management, add metoprolol with holding parameters; titrate further as needed supportive care case discussed and evaluated by supervising physician Zoë Martinez NP Aug 28, 2020 07:56
[2020-08-28 08:00] VITALS: BP 160/89
[2020-08-28] MEDS: dexAMETHasone 10mg/ml Inj IV SCH (08:25)
[2020-08-28] MEDS: Enoxaparin 40mg Inj SUBQ SCH (08:26)
[2020-08-28] MEDS: Levemir Flexpen SUBQ SCH (08:35)
[2020-08-28] MEDS ORDERED: Acetaminophen 500mg (ES) tab ORAL PRN (08:45)
[2020-08-28 09:21] LABS: BASOPHILS % (AUTO) 0.4 % (0.0-2.0); EOSINOPHILS % (AUTO) 0.2 % (0.0-3.0); HEMATOCRIT 35.9 % (42.0-52.0); HEMOGLOBIN 12.8 G/DL (14.2-18.0); LYMPHOCYTES % (AUTO) 11.2 % (20.0-45.0); MEAN CORPUSCULAR VOLUME 85 FL (80-99); MONOCYTES % (AUTO) 9.4 % (1.0-10.0); NEUTROPHILS % (AUTO) 78.9 % (45.0-75.0); PLATELET COUNT 489 K/UL (150-450); RED BLOOD COUNT 4.24 M/UL (4.70-6.10); RED CELL DISTRIBUTION WIDTH 14.5 % (11.6-14.8)
[2020-08-28 09:53] LABS: ALANINE AMINOTRANSFERASE 60 U/L (12-78); ALBUMIN 2.2 G/DL (3.4-5.0); ALBUMIN/GLOBULIN RATIO 0.6 (1.0-2.7); ALKALINE PHOSPHATASE 123 U/L (46-116); ANION GAP 8 mmol/L (5-15); ASPARTATE AMINO TRANSFERASE 28 U/L (15-37); BILIRUBIN,DIRECT < 0.1 MG/DL (0.0-0.3); BILIRUBIN,TOTAL 0.3 MG/DL (0.2-1.0); BLOOD UREA NITROGEN 13 mg/dL (7-18); CARBON DIOXIDE 29 MMOL/L (21-32); CHLORIDE 100 MMOL/L (98-107); CREATININE 0.7 MG/DL (0.55-1.30); FERRITIN 256 NG/ML (8-388); POTASSIUM 3.4 MMOL/L (3.5-5.1); SODIUM 137 MMOL/L (136-145)
[2020-08-28 12:00] VITALS: BP 152/82
[2020-08-28] MEDS ORDERED: NS 275ml ONE (15:43)
[2020-08-28 16:00] VITALS: BP 141/90
[2020-08-28 20:00] VITALS: BP 163/86
[2020-08-28] MEDS: Maintenance Dose:Remdesivir 100mg/NS 230ml x 4 Doses IV SCH ×2 (21:00)
[2020-08-29] VITALS: BP 155/86
[2020-08-29 04:00] VITALS: BP 163/73
[2020-08-29] MEDS: NovoLOG Insulin Flexpen SUBQ SCH ×4 (05:32→21:00)
[2020-08-29 07:48] LABS: BASOPHILS % (AUTO) 0.4 % (0.0-2.0); EOSINOPHILS % (AUTO) 0.3 % (0.0-3.0); HEMATOCRIT 35.9 % (42.0-52.0); HEMOGLOBIN 12.1 G/DL (14.2-18.0); LYMPHOCYTES % (AUTO) 11.2 % (20.0-45.0); MEAN CORPUSCULAR VOLUME 89 FL (80-99); NEUTROPHILS % (AUTO) 78.2 % (45.0-75.0); PLATELET COUNT 495 K/UL (150-450); RED BLOOD COUNT 4.03 M/UL (4.70-6.10); RED CELL DISTRIBUTION WIDTH 13.6 % (11.6-14.8); WHITE BLOOD COUNT 9.3 K/UL (4.8-10.8)
[2020-08-29 08:00] VITALS: BP 158/76
[2020-08-29] MEDS: dexAMETHasone 10mg/ml Inj IV SCH (08:51)
[2020-08-29] MEDS: Levemir Flexpen SUBQ SCH (08:52)
[2020-08-29 08:54] LABS: ALANINE AMINOTRANSFERASE 46 U/L (12-78); ALBUMIN/GLOBULIN RATIO 0.4 (1.0-2.7); ALKALINE PHOSPHATASE 106 U/L (46-116); ANION GAP 9 mmol/L (5-15); ASPARTATE AMINO TRANSFERASE 20 U/L (15-37); BILIRUBIN,DIRECT 0.1 MG/DL (0.0-0.3); BILIRUBIN,TOTAL 0.4 MG/DL (0.2-1.0); BLOOD UREA NITROGEN 13 mg/dL (7-18); CALCIUM 8.1 MG/DL (8.5-10.1); CARBON DIOXIDE 26 MMOL/L (21-32); CHLORIDE 100 MMOL/L (98-107); CREATININE 0.8 MG/DL (0.55-1.30); SODIUM 135 MMOL/L (136-145)
--- NOTE | 2020-08-29 09:47 | Diagnostic Imaging Report ---
Indication: Shortness of breath Technique: One view of the chest Comparison: 08/25/2020 Findings: Bilateral infiltrates in a peribronchovascular distribution are unchanged, allowing for differences in exposure technique. The heart is enlarged. Findings are unchanged Impression: Unchanged, over 4 days, findings as above.
--- NOTE | 2020-08-29 10:09 | Pulmonology Progress Note ---
Subjective Allergies: Coded Allergies: No Known Allergies (Unverified , 08/25/20) Subjective still on NRM , attempted to wean down, but quickly became hypoxic occasional dry cough no fevers no leukocytosis denies CP low K and Mg BP still elevated Objective Last 24 Hour Vital Signs Date Time Temp Pulse Resp B/P (MAP) Pulse Ox O2 Delivery O2 Flow Rate FiO2 08/29/20 08:50 73 163/73 08/29/20 07:41 Non-Rebreather 15.0 08/29/20 04:00 97.1 77 21 163/73 (103) 94 08/29/20 04:00 73 08/29/20 00:00 83 08/29/20 00:00 97.4 67 20 155/86 (109) 95 08/28/20 21:00 Non-Rebreather 15.0 08/28/20 20:53 77 163/86 08/28/20 20:00 97.7 77 21 163/86 (111) 93 08/28/20 20:00 72 08/28/20 16:00 96.9 94 22 141/90 (107) 95 08/28/20 16:00 88 08/28/20 12:00 82 08/28/20 12:00 97.0 84 20 152/82 (105) 95 Intake and Output 08/28/20 08/29/20 19:00 07:00 Intake Total 360 ml 150 ml Output Total 450 ml 500 ml Balance -90 ml -350 ml Intake Oral 360 ml 150 ml Output Urine Total 450 ml 500 ml # Voids 1 3 Objective General Appearance: no apparent distress Lines, tubes and drains: peripheral HEENT: normocephalic, atraumatic, anicteric, mucous membranes moist, PERRL, on NRM Neck: supple Respiratory/Chest: chest wall non-tender, BS decreased, Cardiac: normal rate, regular rhythm - SR Abdomen: normal bowel sounds, non tender, soft Extremities: normal range of motion, no calf tenderness, normal capillary refill Skin Exam: warm/dry 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, no motor/sensory deficits, alert, oriented x 3, responsive Musculoskeletal: normal muscle bulk Laboratory Tests 08/28/20 11:36: POC Whole Blood Glucose 364H 08/28/20 16:34: POC Whole Blood Glucose 367H 08/28/20 20:44: POC Whole Blood Glucose 377H 08/29/20 05:06: POC Whole Blood Glucose 250H 08/29/20 06:00: White Blood Count 9.3, Red Blood Count 4.03L, Hemoglobin 12.1L, Hematocrit 35.9L , Mean Corpuscular Volume 89, Mean Corpuscular Hemoglobin 30.0, Mean Corpuscular Hemoglobin Concent 33.7, Red Cell Distribution Width 13.6, Platelet Count 495H, Mean Platelet Volume 6.4L, Neutrophils (%) (Auto) 78.2H, Lymphocytes (%) (Auto) 11.2L, Monocytes (%) (Auto) 10.0, Eosinophils (%) (Auto) 0.3, Basophils (%) (Auto) 0.4, Sodium Level 135L, Potassium Level 3.0L, Chloride Level 100, Carbon Dioxide Level 26, Anion Gap 9, Blood Urea Nitrogen 13, Creatinine 0.8, Estimat Glomerular Filtration Rate > 60, Glucose Level 239H, Calcium Level 8.1L, Magnesium Level 1.6L, Total Bilirubin 0.4, Direct Bilirubin 0.1, Aspartate Amino Transf (AST/SGOT) 20, Alanine Aminotransferase (ALT/SGPT) 46, Alkaline Phosphatase 106, C-Reactive Protein, Quantitative [Pending], Total Protein 6.5, Albumin 2.0L, Globulin 4.5, Albumin/Globulin Ratio 0.4L Current Medications Medications (Trade) Dose Ordered Sig/Orion Route PRN Reason Start Time Stop Time Status Last Admin Dose Admin Acetaminophen (Tylenol) 1,000 mg Q6H PRN ORAL Mild Pain (Pain Scale 1-3) 08/28/20 08:45 09/27/20 08:44 08/28/20 12:14 Albuterol Sulfate (Proventil MDI) 2 puff Q4H PRN INH Shortness of Breath 08/26/20 11:30 11/24/20 11:29 08/28/20 06:02 Dexamethasone Sodium Phosphate (Decadron 10mg/ ml Inj) 6 mg DAILY IV 08/26/20 11:00 09/03/20 09:01 08/29/20 08:51 Dextrose (Dextrose 50%) 25 ml Q30M PRN IV Hypoglycemia 08/25/20 20:00 11/23/20 19:59 Dextrose (Dextrose 50%) 50 ml Q30M PRN IV Hypoglycemia 08/25/20 20:00 11/23/20 19:59 Enoxaparin Sodium (Lovenox) 40 mg DAILY SUBQ 08/26/20 09:00 11/24/20 08:59 08/28/20 08:26 Insulin Aspart (NovoLOG) BEFORE MEALS AND HS SUBQ 08/25/20 21:00 11/23/20 20:59 08/29/20 05:32 Insulin Detemir (Levemir) 8 units Q24H SUBQ 08/27/20 09:30 11/25/20 09:29 08/29/20 08:52 Metoprolol Tartrate (Lopressor) 25 mg Q12HR ORAL 08/28/20 09:00 11/26/20 08:59 08/29/20 08:50 Remdesivir 100 mg/ Sodium Chloride 250 ml @ 250 mls/hr Q24H IV 08/26/20 22:00 08/29/20 22:59 08/28/20 21:00 Assessment/Plan Assessment/Plan ASSESSMENT COVID 19 pneumonia Acute hypoxemic resp failure due to COVID 19 PNA Hypokalemia /persistent Hypo Mg DM with hyperglycemia/DMOOC HTN PLAN OF CARE tele O2 titrate to keep sat > 92%, now on 100% NRM , so far unable to wean down prone position encouraged continue Dexamethasone and Remdesivir (monitor LFT, renal paramerts-stable for now ) ID follows a/c with Lovenox ( PPX dose) Venous Duplex BLE NGT CXRthis am -> no change fup inflammatory markers: CRP for this am pending Albuterol MDI prn further replace K, check K and Mg in AM ( Mg 08/26 stable) labs pending for this am diabetic diet and diabetic teaching [id number] not at goal added Levemir, continue SSI likely higher requirements for insulin given steroids endo eval pending BP management, added metoprolol with holding parameters; increase dose this am further replace K and Mg, nephro evalgiven persistent hypoK, ? unclear cause supportive care case discussed and evaluated by supervising physician Zoë Martinez NP Aug 29, 2020 10:09
[2020-08-29] MEDS: Enoxaparin 40mg Inj SUBQ SCH (10:43)
[2020-08-29 12:00] VITALS: BP 148/74
--- NOTE | 2020-08-29 12:06 | Consultation ---
Consult Note Consult Note I am asked to evaluate the patient for fluid and electrolyte management HPI: 75-year-old male history of diabetes and hypertension presents for evaluation of shortness of breath. He reports 1 week of fatigue, decreased appetite, cough and shortness of breath that is progressively worse. Tested for COVID-19 outpatient 2 days ago but results are not yet available. Subjective fevers noted. Reports chills. Saturating 80% on initial triage. Non-smoker. No history of COPD or lung disease. Does not use inhalers. Denies chest pain, palpitations. 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 Hx Hypertension: Yes Hx Diabetes: Yes Vital Signs Date Time Temp Pulse Resp B/P (MAP) Pulse Ox O2 Delivery O2 Flow Rate FiO2 08/25/20 10:48 98.4 79 24 161/66 (97) 80 Room Air General Appearance: no apparent distress Lines, tubes and drains: peripheral HEENT: normocephalic, atraumatic, anicteric, mucous membranes moist, PERRL, other - O2 5 L via NC Neck: supple Respiratory/Chest: chest wall non-tender, lungs clear, no accessory muscle use Cardiovascular/Chest: normal peripheral pulses, normal rate, regular rhythm - SR with some PAC Abdomen: normal bowel sounds, non tender, soft Extremities: normal range of motion, no calf tenderness, normal capillary refill Skin Exam: warm/dry 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 CRP is 15.5. CRP initially was high as 42.0. White count 9.0, hemoglobin 12.5. Imaging studies, chest x-ray shows bilateral infiltrates, multifocal pneumonia. COVID nasopharyngeal molecular testing was positive. . . Assessment/Plan Low sodium Low potassium Low magnesium Diabetes mellitus, hyperglycemia 4+ proteinuria, hypoalbuminemia COVID-19 pneumonia, hypoxia Hypertension Mag, potassium supplement Monitor electrolytes and chemistries Check vitamin D level 24-hour urine collection for total protein Continue per consultants Tod Orona MD Aug 29, 2020 12:06
[2020-08-29 16:00] VITALS: BP 146/78
--- NOTE | 2020-08-29 16:32 | Infectious Diseases Prog Note ---
Assessment/Plan Assessment/Plan ASSESSMENT AND PLAN: 1. covid-19 virus infection with pna, hypoxia - dexamethasone and remdesivir - monitor hypoxia - monitor labs 2. Diabetes. 3. Hypertension. 4. No known allergies. 5. Social history is negative. 6. Family history is noncontributory. 7. MAR was noted. 8. Case was discussed with RN. 9. Blood sugar and blood pressure treatment per primary care team. 10. Orders were noted and entered. Subjective Constitutional: Reports: other - some sob, on NR; Denies: fever HEENT: Reports: congestion Respiratory: Reports: shortness of breath Cardiovascular: Denies: chest pain Gastrointestinal/Abdominal: Denies: nausea, vomiting, diarrhea Neurologic: Denies: headache Psychiatric: Denies: depression Skin: Denies: rash Hematologic: Denies: bleeding Musculoskeletal: Denies: pain Allergies: Coded Allergies: No Known Allergies (Unverified , 08/25/20) Objective Last 24 Hour Vital Signs Date Time Temp Pulse Resp B/P (MAP) Pulse Ox O2 Delivery O2 Flow Rate FiO2 08/29/20 12:00 77 08/29/20 12:00 97.4 82 20 148/74 (98) 95 08/29/20 08:50 73 163/73 08/29/20 08:00 97.5 79 20 158/76 (103) 97 08/29/20 08:00 78 08/29/20 07:41 Non-Rebreather 15.0 08/29/20 04:00 97.1 77 21 163/73 (103) 94 08/29/20 04:00 73 08/29/20 00:00 83 08/29/20 00:00 97.4 67 20 155/86 (109) 95 08/28/20 21:00 Non-Rebreather 15.0 08/28/20 20:53 77 163/86 08/28/20 20:00 97.7 77 21 163/86 (111) 93 08/28/20 20:00 72 Height (Feet): 5 Height (Inches): 7.00 Weight (Pounds): 198 General Appearance: no acute distress HEENT: normocephalic, atraumatic, anicteric, mucous membranes moist Respiratory/Chest: crackles/rales, rhonchi - bilaterally Cardiovascular: normal rate, regular rhythm, no gallop/murmur, no JVD Abdomen: normal bowel sounds, soft, non tender, no organomegaly, non distended Genitourinary: other - no pritchett Extremities: no cyanosis Skin: no rash 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 The heart is enlarged. Findings are unchanged Impression: Unchanged, over 4 days, findings as above. Microbiology Date/Time Source Procedure Growth Status 08/25/20 11:30 Nasopharynx SARS-CoV-2 RdRp Gene Assay - Final Complete 08/25/20 11:30 Blood Blood Culture - Preliminary NO GROWTH AFTER 48 HOURS Resulted Laboratory Tests Test 08/28/20 16:34 08/28/20 20:44 08/29/20 05:06 08/29/20 06:00 POC Whole Blood Glucose 367 MG/DL (74-106) H 377 MG/DL (74-106) H 250 MG/DL (74-106) H White Blood Count 9.3 K/UL (4.8-10.8) Red Blood Count 4.03 M/UL (4.70-6.10) L Hemoglobin 12.1 G/DL (14.2-18.0) L Hematocrit 35.9 % (42.0-52.0) L Mean Corpuscular Volume 89 FL (80-99) Mean Corpuscular Hemoglobin 30.0 PG (27.0-31.0) Mean Corpuscular Hemoglobin Concent 33.7 G/DL (32.0-36.0) Red Cell Distribution Width 13.6 % (11.6-14.8) Platelet Count 495 K/UL (150-450) H Mean Platelet Volume 6.4 FL (6.5-10.1) L Neutrophils (%) (Auto) 78.2 % (45.0-75.0) H Lymphocytes (%) (Auto) 11.2 % (20.0-45.0) L Monocytes (%) (Auto) 10.0 % (1.0-10.0) Eosinophils (%) (Auto) 0.3 % (0.0-3.0) Basophils (%) (Auto) 0.4 % (0.0-2.0) Sodium Level 135 MMOL/L (136-145) L Potassium Level 3.0 MMOL/L (3.5-5.1) L Chloride Level 100 MMOL/L (98-107) Carbon Dioxide Level 26 MMOL/L (21-32) Anion Gap 9 mmol/L (5-15) Blood Urea Nitrogen 13 mg/dL (7-18) Creatinine 0.8 MG/DL (0.55-1.30) Estimat Glomerular Filtration Rate > 60 mL/min (>60) Glucose Level 239 MG/DL (74-106) H Calcium Level 8.1 MG/DL (8.5-10.1) L Magnesium Level 1.6 MG/DL (1.8-2.4) L Total Bilirubin 0.4 MG/DL (0.2-1.0) Direct Bilirubin 0.1 MG/DL (0.0-0.3) Aspartate Amino Transf (AST/SGOT) 20 U/L (15-37) Alanine Aminotransferase (ALT/SGPT) 46 U/L (12-78) Alkaline Phosphatase 106 U/L (46-116) C-Reactive Protein, Quantitative 17.7 mg/dL (0.00-0.90) H Total Protein 6.5 G/DL (6.4-8.2) Albumin 2.0 G/DL (3.4-5.0) L Globulin 4.5 g/dL Albumin/Globulin Ratio 0.4 (1.0-2.7) L Test 08/29/20 10:55 POC Whole Blood Glucose 449 MG/DL (74-106) H Current Medications Medications (Trade) Dose Ordered Sig/Orion Route PRN Reason Start Time Stop Time Status Last Admin Dose Admin Acetaminophen (Tylenol) 1,000 mg Q6H PRN ORAL Mild Pain (Pain Scale 1-3) 08/28/20 08:45 09/27/20 08:44 08/28/20 12:14 Albuterol Sulfate (Proventil MDI) 2 puff Q4H PRN INH Shortness of Breath 08/26/20 11:30 11/24/20 11:29 08/28/20 06:02 Dexamethasone Sodium Phosphate (Decadron 10mg/ ml Inj) 6 mg DAILY IV 08/26/20 11:00 09/03/20 09:01 08/29/20 08:51 Dextrose (Dextrose 50%) 25 ml Q30M PRN IV Hypoglycemia 08/25/20 20:00 11/23/20 19:59 Dextrose (Dextrose 50%) 50 ml Q30M PRN IV Hypoglycemia 08/25/20 20:00 11/23/20 19:59 Docusate Sodium (Colace) 100 mg TWICE A DAY ORAL 08/29/20 18:00 09/28/20 17:59 Enoxaparin Sodium (Lovenox) 40 mg DAILY SUBQ 08/26/20 09:00 11/24/20 08:59 08/29/20 10:43 Insulin Aspart (NovoLOG) BEFORE MEALS AND HS SUBQ 08/25/20 21:00 11/23/20 20:59 08/29/20 11:51 Insulin Detemir (Levemir) 8 units Q24H SUBQ 08/27/20 09:30 11/25/20 09:29 08/29/20 08:52 Metoprolol Tartrate (Lopressor) 50 mg Q12HR ORAL 08/29/20 21:00 11/26/20 20:59 Pantoprazole (Protonix) 40 mg DAILY ORAL 08/29/20 12:15 09/28/20 12:14 08/29/20 13:10 Remdesivir 100 mg/ Sodium Chloride 250 ml @ 250 mls/hr Q24H IV 08/26/20 22:00 08/29/20 22:59 08/28/20 21:00 Prateek Dee MD Aug 29, 2020 16:32
[2020-08-29] MEDS: Docusate 100mg cap ORAL SCH (17:05)
[2020-08-29 20:00] VITALS: BP 156/78
[2020-08-29] MEDS: Metoprolol Tartrate 50mg tab ORAL SCH (21:59)
[2020-08-29] MEDS ORDERED: Levemir Flexpen SUBQ SCH (22:00)
[2020-08-29] MEDS: Maintenance Dose:Remdesivir 100mg/NS 230ml x 4 Doses IV SCH ×2 (22:20)
[2020-08-30] VITALS: BP 162/90
[2020-08-30 04:00] VITALS: BP 147/90
--- NOTE | 2020-08-30 04:30 | Consultation ---
DATE OF CONSULTATION: 08/29/2020 ENDOCRINOLOGY CONSULTATION CONSULTING PHYSICIAN: Talha Manzo M.D. REFERRING PHYSICIAN: Carmelo Combs M.D. REASON FOR CONSULTATION: I was asked to see this 75-year-old white male by Dr. Carmelo Combs in Endocrinology consultation for management of type 2 diabetes mellitus, , and COVID. pneumonia. type 2 diabetes. not sure if he was taking . PHYSICAL EXAMINATION: GENERAL: The patient is in no acute distress. VITAL SIGNS: Blood pressure is , pulse 81, respirations 20, oxygen saturation liters nonrebreather mask. HEAD AND NECK: . LUNGS: Decreased breath sounds. HEART: Distant. ABDOMEN: Obese. Bowel sounds present. EXTREMITIES: No edema. NEUROLOGICAL: Cranial nerves . Toes are downgoing to plantar stimulation. LABORATORY DATA: Glucose 357 mg%. ASSESSMENT: COVID pneumonia. PLAN: Levemir to 20 units q.12 h. with NovoLog 10 units t.i.d. average dose. Hemoglobin A1c . Talha Manzo M.D. DR: TAHIR JOB#: [id number] CC:
[2020-08-30 04:54] LABS: BASOPHILS % (AUTO) 0.4 % (0.0-2.0); EOSINOPHILS % (AUTO) 0.6 % (0.0-3.0); HEMATOCRIT 36.5 % (42.0-52.0); HEMOGLOBIN 12.7 G/DL (14.2-18.0); LYMPHOCYTES % (AUTO) 9.2 % (20.0-45.0); MEAN CORPUSCULAR VOLUME 86 FL (80-99); MONOCYTES % (AUTO) 9.6 % (1.0-10.0); NEUTROPHILS % (AUTO) 80.2 % (45.0-75.0); PLATELET COUNT 561 K/UL (150-450); RED BLOOD COUNT 4.22 M/UL (4.70-6.10); RED CELL DISTRIBUTION WIDTH 13.2 % (11.6-14.8); WHITE BLOOD COUNT 10.6 K/UL (4.8-10.8)
[2020-08-30 05:17] LABS: % IRON SATURATION 19 % (15-50); IRON 31 ug/dL (50-175); TOTAL IRON BINDING CAPACITY 165 ug/dL (250-450)
[2020-08-30 05:23] LABS: GAMMA GLUTAMYL TRANSPEPTIDASE 51 U/L (5-85); PHOSPHORUS 2.6 MG/DL (2.5-4.9)
[2020-08-30] MEDS: NovoLOG Insulin Flexpen SUBQ SCH ×7 (05:51→21:24)
[2020-08-30 06:01] LABS: ALANINE AMINOTRANSFERASE 40 U/L (12-78); ALBUMIN/GLOBULIN RATIO 0.4 (1.0-2.7); ALKALINE PHOSPHATASE 106 U/L (46-116); ANION GAP 7 mmol/L (5-15); ASPARTATE AMINO TRANSFERASE 17 U/L (15-37); BILIRUBIN,TOTAL 0.4 MG/DL (0.2-1.0); BLOOD UREA NITROGEN 15 mg/dL (7-18); CALCIUM 8.2 MG/DL (8.5-10.1); CARBON DIOXIDE 25 MMOL/L (21-32); CHLORIDE 101 MMOL/L (98-107); CHOLESTEROL 124 MG/DL (< 200); CREATININE 0.8 MG/DL (0.55-1.30); FERRITIN 214 NG/ML (8-388); HDL CHOLESTEROL 35 MG/DL (40-60); SODIUM 133 MMOL/L (136-145); TRIGLYCERIDES 79 MG/DL (30-150)
[2020-08-30 08:00] VITALS: BP 153/83
[2020-08-30] MEDS: Enoxaparin 40mg Inj SUBQ SCH (08:20)
[2020-08-30] MEDS: Docusate 100mg cap ORAL SCH ×2 (08:21→18:00)
[2020-08-30] MEDS: Levemir Flexpen SUBQ SCH ×2 (08:21→21:24)
[2020-08-30] MEDS: dexAMETHasone 10mg/ml Inj IV SCH (08:22)
[2020-08-30] MEDS: Metoprolol Tartrate 50mg tab ORAL SCH (08:22)
--- NOTE | 2020-08-30 10:39 | Nephrology Progress Note ---
Assessment/Plan Problem List: (1) Dehydration (2) Electrolyte imbalance (3) COVID-19 (4) Pneumonia (5) Diabetic nephropathy (6) DMII (diabetes mellitus, type 2) Assessment Low sodium Low potassium Low magnesium Diabetes mellitus, hyperglycemia 4+ proteinuria, hypoalbuminemia COVID-19 pneumonia, hypoxia Hypertension Plan August 30: Labs reviewed. Sodium 133. Potassium and magnesium level are within normal limits. Continue per consultants. Previously: Mag, potassium supplement Monitor electrolytes and chemistries Check vitamin D level 24-hour urine collection for total protein Continue per consultants Objective Objective Last 24 Hour Vital Signs Date Time Temp Pulse Resp B/P (MAP) Pulse Ox O2 Delivery O2 Flow Rate FiO2 08/30/20 09:00 Non-Rebreather 15.0 08/30/20 08:22 91 153/83 08/30/20 08:00 97.5 91 22 153/83 (106) 93 08/30/20 08:00 77 08/30/20 04:00 77 08/30/20 04:00 97.9 72 24 147/90 (109) 93 08/30/20 00:00 71 08/30/20 00:00 97.7 68 24 162/90 (114) 92 08/29/20 21:59 81 156/78 08/29/20 21:00 Non-Rebreather 15.0 08/29/20 20:00 97.9 81 20 156/78 (104) 93 08/29/20 20:00 85 08/29/20 16:00 97.8 82 20 146/78 (100) 95 08/29/20 16:00 81 08/29/20 12:00 77 08/29/20 12:00 97.4 82 20 148/74 (98) 95 Intake and Output 08/29/20 08/30/20 19:00 07:00 Intake Total 1600 ml 150 ml Output Total 1300 ml Balance 300 ml 150 ml Intake Oral 1600 ml 150 ml Output Urine Total 1300 ml # Voids 6 5 Laboratory Tests 08/29/20 10:55: POC Whole Blood Glucose 449H 08/29/20 16:30: POC Whole Blood Glucose 397H 08/29/20 21:01: POC Whole Blood Glucose 367H 08/30/20 04:00: White Blood Count 10.6, Red Blood Count 4.22L, Hemoglobin 12.7L, Hematocrit 36.5L, Mean Corpuscular Volume 86, Mean Corpuscular Hemoglobin 30.2, Mean Corpuscular Hemoglobin Concent 34.9, Red Cell Distribution Width 13.2, Platelet Count 561H, Mean Platelet Volume 6.7, Neutrophils (%) (Auto) 80.2H, Lymphocytes (%) (Auto) 9.2L, Monocytes (%) (Auto) 9.6, Eosinophils (%) (Auto) 0.6, Basophils (%) (Auto) 0.4, Sodium Level 133L, Potassium Level 4.0, Chloride Level 101, Carbon Dioxide Level 25, Anion Gap 7, Blood Urea Nitrogen 15, Creatinine 0.8, Estimat Glomerular Filtration Rate > 60, Glucose Level 246H, Hemoglobin A1c 11.4H, Uric Acid 2.9, Calcium Level 8.2L, Phosphorus Level 2.6, Magnesium Level 1.8, Iron Level 31L, Total Iron Binding Capacity 165L, Percent Iron Saturation 19, Unsaturated Iron Binding 134, Ferritin 214, Total Bilirubin 0.4, Gamma Glutamyl Transpeptidase 51, Aspartate Amino Transf (AST/SGOT) 17, Alanine Aminotransferase (ALT/SGPT) 40, Alkaline Phosphatase 106, C-Reactive Protein, Quantitative 18.6H, Pro-B-Type Natriuretic Peptide 177H, Total Protein 6.5, Albumin 2.0L, Globulin 4.5, Albumin/Globulin Ratio 0.4L, Triglycerides Level 79, Cholesterol Level 124, LDL Cholesterol 67, HDL Cholesterol 35L, Cholesterol/HDL Ratio 3.5, Vitamin B12 Level 576, Vitamin D 25-Hydroxy [Pending], 25-Hydroxy V itamin D2 [Pending], 25-Hydroxy Vitamin D3 [Pending], Folate 12.5, Thyroid Stimulating Hormone (TSH) 0.268L 08/30/20 05:37: POC Whole Blood Glucose 241H Height (Feet): 5 Height (Inches): 7.00 Weight (Pounds): 198 Tod Orona MD Aug 30, 2020 10:39
[2020-08-30 12:00] VITALS: BP 158/74
[2020-08-30 16:00] VITALS: BP 156/83
--- NOTE | 2020-08-30 16:38 | Pulmonology Progress Note ---
Subjective Constitutional: Reports: other - some sob, on NRM; Denies: fever Gastrointestinal/Abdominal: Denies: nausea, vomiting, diarrhea Psychiatric: Denies: depression Skin: Denies: rash Musculoskeletal: Denies: pain Allergies: Coded Allergies: No Known Allergies (Unverified , 08/25/20) Subjective still on NRM , weak occasional dry cough no fevers no leukocytosis denies CP completed Remdesivir seen by endo, BS regimen adjusted BP still elevated Objective Last 24 Hour Vital Signs Date Time Temp Pulse Resp B/P (MAP) Pulse Ox O2 Delivery O2 Flow Rate FiO2 08/30/20 16:00 97.7 77 20 156/83 (107) 100 08/30/20 12:00 97.1 89 22 158/74 (102) 92 08/30/20 12:00 75 08/30/20 09:00 Non-Rebreather 15.0 08/30/20 08:22 91 153/83 08/30/20 08:00 97.5 91 22 153/83 (106) 93 08/30/20 08:00 77 08/30/20 04:00 77 08/30/20 04:00 97.9 72 24 147/90 (109) 93 08/30/20 00:00 71 08/30/20 00:00 97.7 68 24 162/90 (114) 92 08/29/20 21:59 81 156/78 08/29/20 21:00 Non-Rebreather 15.0 08/29/20 20:00 97.9 81 20 156/78 (104) 93 08/29/20 20:00 85 Intake and Output 08/29/20 08/30/20 19:00 07:00 Intake Total 1600 ml 150 ml Output Total 1300 ml Balance 300 ml 150 ml Intake Oral 1600 ml 150 ml Output Urine Total 1300 ml # Voids 6 5 Objective General Appearance: no apparent distress Lines, tubes and drains: peripheral HEENT: normocephalic, atraumatic, anicteric, mucous membranes moist, PERRL, on NRM Neck: supple Respiratory/Chest: chest wall non-tender, BS decreased, Cardiac: normal rate, regular rhythm - SR Abdomen: normal bowel sounds, non tender, soft Extremities: normal range of motion, no calf tenderness, normal capillary refill Skin Exam: warm/dry 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, no motor/sensory deficits, alert, oriented x 3, responsive Musculoskeletal: normal muscle bulk Laboratory Tests 08/29/20 21:01: POC Whole Blood Glucose 367H 08/30/20 04:00: White Blood Count 10.6, Red Blood Count 4.22L, Hemoglobin 12.7L, Hematocrit 36.5L, Mean Corpuscular Volume 86, Mean Corpuscular Hemoglobin 30.2, Mean Corpuscular Hemoglobin Concent 34.9, Red Cell Distribution Width 13.2, Platelet Count 561H, Mean Platelet Volume 6.7, Neutrophils (%) (Auto) 80.2H, Lymphocytes (%) (Auto) 9.2L, Monocytes (%) (Auto) 9.6, Eosinophils (%) (Auto) 0.6, Basophils (%) (Auto) 0.4, Sodium Level 133L, Potassium Level 4.0, Chloride Level 101, Carbon Dioxide Level 25, Anion Gap 7, Blood Urea Nitrogen 15, Creatinine 0.8, Estimat Glomerular Filtration Rate > 60, Glucose Level 246H, Hemoglobin A1c 11.4H, Uric Acid 2.9, Calcium Level 8.2L, Phosphorus Level 2.6, Magnesium Level 1.8, Iron Level 31L, Total Iron Binding Capacity 165L, Percent Iron Saturation 19, Unsaturated Iron Binding 134, Ferritin 214, Total Bilirubin 0.4, Gamma Glutamyl Transpeptidase 51, Aspartate Amino Transf (AST/SGOT) 17, Alanine Aminotransferase (ALT/SGPT) 40, Alkaline Phosphatase 106, C-Reactive Protein, Quantitative 18.6H, Pro-B-Type Natriuretic Peptide 177H, Total Protein 6.5, Albumin 2.0L, Globulin 4.5, Albumin/Globulin Ratio 0.4L, Triglycerides Level 79, Cholesterol Level 124, LDL Cholesterol 67, HDL Cholesterol 35L, Cholesterol/HDL Ratio 3.5, Vitamin B12 Level 576, Vitamin D 25-Hydroxy [Pending], 25-Hydroxy Vitamin D2 [Pending], 25-Hydroxy Vitamin D3 [Pending], Folate 12.5, Thyroid Stimulating Hormone (TSH) 0.268L 08/30/20 05:37: POC Whole Blood Glucose 241H 08/30/20 11:26: POC Whole Blood Glucose 350H 08/30/20 14:57: Urine Collection Time 24, Urine Total Volume 3200, Urine Total Protein mg/dL 28, Urine Total Protein 24 Hour 27.7 08/30/20 16:02: POC Whole Blood Glucose 195H Current Medications Medications (Trade) Dose Ordered Sig/Orion Route PRN Reason Start Time Stop Time Status Last Admin Dose Admin Acetaminophen (Tylenol) 1,000 mg Q6H PRN ORAL Mild Pain (Pain Scale 1-3) 08/28/20 08:45 09/27/20 08:44 08/28/20 12:14 Albuterol Sulfate (Proventil MDI) 2 puff Q4H PRN INH Shortness of Breath 08/26/20 11:30 11/24/20 11:29 08/28/20 06:02 Dexamethasone Sodium Phosphate (Decadron 10mg/ ml Inj) 6 mg DAILY IV 08/26/20 11:00 09/03/20 09:01 08/30/20 08:22 Dextrose (Dextrose 50%) 25 ml Q30M PRN IV Hypoglycemia 08/25/20 20:00 11/23/20 19:59 Dextrose (Dextrose 50%) 50 ml Q30M PRN IV Hypoglycemia 08/25/20 20:00 11/23/20 19:59 Docusate Sodium (Colace) 100 mg TWICE A DAY ORAL 08/29/20 18:00 09/28/20 17:59 08/30/20 08:21 Enoxaparin Sodium (Lovenox) 40 mg DAILY SUBQ 08/26/20 09:00 11/24/20 08:59 08/30/20 08:20 Insulin Aspart (NovoLOG) BEFORE MEALS AND HS SUBQ 08/25/20 21:00 11/23/20 20:59 08/30/20 12:57 Insulin Aspart (NovoLOG) 10 units BEFORE MEALS SUBQ 08/30/20 06:30 11/28/20 06:29 08/30/20 12:58 Insulin Detemir (Levemir) 20 units Q12HR SUBQ 08/30/20 09:00 11/25/20 09:29 08/30/20 08:21 Metoprolol Tartrate (Lopressor) 50 mg Q12HR ORAL 08/29/20 21:00 11/26/20 20:59 08/30/20 08:22 Pantoprazole (Protonix) 40 mg DAILY ORAL 08/29/20 12:15 09/28/20 12:14 08/30/20 08:21 Assessment/Plan Assessment/Plan ASSESSMENT COVID 19 pneumonia Acute hypoxemic resp failure due to COVID 19 PNA Hypokalemia /persistent Hypo Mg DM with hyperglycemia/DMOOC HTN PLAN OF CARE tele O2 titrate to keep sat > 92%, now on 100% NRM , titrate to keep sat > 92% prone position encouraged as tolerated continue Dexamethasone , completed Remdesivir (monitor LFT, renal paramerts-stable for now ) ID follows a/c with Lovenox ( PPX dose) Venous Duplex BLE NGT CXR 08/29 -> no change fup inflammatory markers: CRP 18.6, ferritin 214 Albuterol MDI prn nephro eval appreciated K and Mg stable diabetic diet and diabetic teaching [id number] not at goal added Levemir, continue SSI endo eval appreciated Levemir increased to bid, SA Novolog premeal and SSI likely higher requirements for insulin given steroids endo eval pending BP management, added metoprolol with holding parameters; furthe increased dose today further replace K and Mg, clinically slightly better supportive care case discussed and evaluated by supervising physician Zoë Martinez NP Aug 30, 2020 16:38
[2020-08-30 20:00] VITALS: BP 116/55
[2020-08-31] VITALS: BP 145/70
[2020-08-31 04:00] VITALS: BP 150/83
[2020-08-31] MEDS: NovoLOG Insulin Flexpen SUBQ SCH ×7 (06:41→21:18)
[2020-08-31 07:54] LABS: ALANINE AMINOTRANSFERASE 41 U/L (12-78); ALBUMIN/GLOBULIN RATIO 0.4 (1.0-2.7); ALKALINE PHOSPHATASE 111 U/L (46-116); ANION GAP 9 mmol/L (5-15); ASPARTATE AMINO TRANSFERASE 22 U/L (15-37); BILIRUBIN,TOTAL 0.7 MG/DL (0.2-1.0); BLOOD UREA NITROGEN 14 mg/dL (7-18); CALCIUM 8.4 MG/DL (8.5-10.1); CARBON DIOXIDE 25 MMOL/L (21-32); CHLORIDE 100 MMOL/L (98-107); CREATININE 0.8 MG/DL (0.55-1.30); PHOSPHORUS 3.3 MG/DL (2.5-4.9); POTASSIUM 3.2 MMOL/L (3.5-5.1); SODIUM 134 MMOL/L (136-145)
[2020-08-31 08:00] VITALS: BP 121/79
[2020-08-31] MEDS: dexAMETHasone 10mg/ml Inj IV SCH (08:39)
[2020-08-31] MEDS: Docusate 100mg cap ORAL SCH ×2 (08:39→17:33)
[2020-08-31] MEDS: Enoxaparin 40mg Inj SUBQ SCH (08:40)
[2020-08-31] MEDS: Levemir Flexpen SUBQ SCH ×2 (08:40→21:19)
--- NOTE | 2020-08-31 10:30 | Pulmonology Progress Note ---
Subjective Constitutional: Reports: other - some sob, on NRM; Denies: fever Gastrointestinal/Abdominal: Denies: nausea, vomiting, diarrhea Psychiatric: Denies: depression Skin: Denies: rash Musculoskeletal: Denies: pain Allergies: Coded Allergies: No Known Allergies (Unverified , 08/25/20) Subjective still on NRM ,unable to wean weak occasional dry cough no fevers no leukocytosis denies CP completed Remdesivir BS and BP better today low K and Mg Objective Last 24 Hour Vital Signs Date Time Temp Pulse Resp B/P (MAP) Pulse Ox O2 Delivery O2 Flow Rate FiO2 08/31/20 08:39 110 121/79 08/31/20 08:00 97.7 110 24 121/79 (93) 96 08/31/20 04:00 98.5 93 20 150/83 (105) 92 08/31/20 04:00 104 08/31/20 00:00 106 08/31/20 00:00 98.5 77 20 145/70 (95) 94 08/30/20 21:00 77 116/55 08/30/20 21:00 Non-Rebreather 15.0 08/30/20 20:14 98 Non-Rebreather 15.0 100 08/30/20 20:00 98.5 77 20 116/55 (75) 94 08/30/20 20:00 79 08/30/20 17:24 77 156/83 08/30/20 16:00 77 08/30/20 16:00 97.7 77 20 156/83 (107) 100 08/30/20 12:00 97.1 89 22 158/74 (102) 92 08/30/20 12:00 75 Intake and Output 08/30/20 08/31/20 19:00 07:00 Intake Total 500 ml 300 ml Output Total 1500 ml 1150 ml Balance -1000 ml -850 ml Intake Oral 500 ml 300 ml Output Urine Total 1500 ml 1150 ml # Voids 5 Objective General Appearance: no apparent distress Lines, tubes and drains: peripheral HEENT: normocephalic, atraumatic, anicteric, mucous membranes moist, PERRL, on NRM Neck: supple Respiratory/Chest: chest wall non-tender, BS decreased, Cardiac: normal rate, regular rhythm - SR Abdomen: normal bowel sounds, non tender, soft Extremities: normal range of motion, no calf tenderness, normal capillary r efill Skin Exam: warm/dry 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, no motor/sensory deficits, alert, oriented x 3, responsive Musculoskeletal: normal muscle bulk Laboratory Tests 08/30/20 11:26: POC Whole Blood Glucose 350H 08/30/20 14:57: Urine Collection Time 24, Urine Total Volume 3200, Urine Total Protein mg/dL 28, Urine Total Protein 24 Hour 27.7 08/30/20 16:02: POC Whole Blood Glucose 195H 08/30/20 21:20: POC Whole Blood Glucose 182H 08/31/20 07:08: Sodium Level 134L, Potassium Level 3.2L, Chloride Level 100, Carbon Dioxide Level 25, Anion Gap 9, Blood Urea Nitrogen 14, Creatinine 0.8, Estimat Glomerular Filtration Rate > 60, Glucose Level 185H, Calcium Level 8.4L, Phosphorus Level 3.3, Magnesium Level 1.7L, Total Bilirubin 0.7, Aspartate Amino Transf (AST/SGOT) 22, Alanine Aminotransferase (ALT/SGPT) 41, Alkaline Phosphatase 111, C-Reactive Protein, Quantitative 19.0H, Total Protein 6.7, Albumin 2.0L, Globulin 4.7, Albumin/Globulin Ratio 0.4L Current Medications Medications (Trade) Dose Ordered Sig/Orion Route PRN Reason Start Time Stop Time Status Last Admin Dose Admin Acetaminophen (Tylenol) 1,000 mg Q6H PRN ORAL Mild Pain (Pain Scale 1-3) 08/28/20 08:45 09/27/20 08:44 08/28/20 12:14 Albuterol Sulfate (Proventil MDI) 2 puff Q4H PRN INH Shortness of Breath 08/26/20 11:30 11/24/20 11:29 08/28/20 06:02 Dexamethasone Sodium Phosphate (Decadron 10mg/ ml Inj) 6 mg DAILY IV 08/26/20 11:00 09/03/20 09:01 08/31/20 08:39 Dextrose (Dextrose 50%) 25 ml Q30M PRN IV Hypoglycemia 08/25/20 20:00 11/23/20 19:59 Dextrose (Dextrose 50%) 50 ml Q30M PRN IV Hypoglycemia 08/25/20 20:00 11/23/20 19:59 Docusate Sodium (Colace) 100 mg TWICE A DAY ORAL 08/29/20 18:00 09/28/20 17:59 08/31/20 08:39 Enoxaparin Sodium (Lovenox) 40 mg DAILY SUBQ 08/26/20 09:00 11/24/20 08:59 08/31/20 08:40 Insulin Aspart (NovoLOG) BEFORE MEALS AND HS SUBQ 08/25/20 21:00 11/23/20 20:59 08/31/20 06:41 Insulin Aspart (NovoLOG) 10 units BEFORE MEALS SUBQ 08/30/20 06:30 11/28/20 06:29 08/31/20 06:42 Insulin Detemir (Levemir) 20 units Q12HR SUBQ 08/30/20 09:00 11/25/20 09:29 08/31/20 08:40 Magnesium Sulfate 100 ml @ 100 mls/hr Q1H IVPB 08/31/20 10:15 08/31/20 14:14 08/31/20 10:07 Metoprolol Tartrate (Lopressor) 75 mg Q12HR ORAL 08/30/20 21:00 11/28/20 20:59 08/31/20 08:39 Pantoprazole (Protonix) 40 mg DAILY ORAL 08/29/20 12:15 09/28/20 12:14 08/31/20 08:39 Potassium Chloride 100 ml @ 100 mls/hr Q1H IVPB 08/31/20 10:15 08/31/20 12:14 08/31/20 10:07 Assessment/Plan Assessment/Plan ASSESSMENT COVID 19 pneumonia Acute hypoxemic resp failure due to COVID 19 PNA Hypokalemia /persistent Hypo Mg DM with hyperglycemia/DMOOC HTN PLAN OF CARE tele O2 titrate to keep sat > 92%, still on 100% NRM , titrate to keep sat > 92%, so far unable to wean prone position encouraged as tolerated continue Dexamethasone , completed Remdesivir (monitor LFT, renal paramerts- stable ) ID follows a/c with Lovenox ( PPX dose) Venous Duplex BLE NGT CXR 08/29 -> no change fup inflammatory markers: CRP 19.0 this am Albuterol MDI prn nephro follows additional K and Mg replacement diabetic diet and diabetic teaching [id number] not at goal BS as per endo recs, BS better BP management, now better with new increased dose of Metoprolol supportive care still severely hypoxic case discussed and evaluated by supervising physician Zoë Martinez NP Aug 31, 2020 10:30
[2020-08-31 12:00] VITALS: BP 134/84
--- NOTE | 2020-08-31 15:43 | Nephrology Progress Note ---
Assessment/Plan Problem List: (1) Dehydration (2) Electrolyte imbalance (3) COVID-19 (4) Pneumonia (5) Diabetic nephropathy (6) DMII (diabetes mellitus, type 2) Assessment Low sodium Low potassium Low magnesium Diabetes mellitus, hyperglycemia 4+ proteinuria, hypoalbuminemia COVID-19 pneumonia, hypoxia Hypertension Plan August 31: Labs reviewed. Abnormal electrolytes addressed. Continue to monitor electrolytes. Per consultants. August 30: Labs reviewed. Sodium 133. Potassium and magnesium level are within normal limits. Continue per consultants. Previously: Mag, potassium supplement Monitor electrolytes and chemistries Check vitamin D level 24-hour urine collection for total protein Continue per consultants Subjective ROS Limited/Unobtainable: Yes Objective Objective Last 24 Hour Vital Signs Date Time Temp Pulse Resp B/P (MAP) Pulse Ox O2 Delivery O2 Flow Rate FiO2 08/31/20 12:00 80 08/31/20 12:00 97.6 69 20 134/84 (101) 100 08/31/20 09:00 Non-Rebreather 15.0 08/31/20 08:39 110 121/79 08/31/20 08:00 102 08/31/20 08:00 97.7 110 24 121/79 (93) 96 08/31/20 07:00 96 Non-Rebreather 15.0 100 08/31/20 04:00 98.5 93 20 150/83 (105) 92 08/31/20 04:00 104 08/31/20 00:00 106 08/31/20 00:00 98.5 77 20 145/70 (95) 94 08/30/20 21:00 77 116/55 08/30/20 21:00 Non-Rebreather 15.0 08/30/20 20:14 98 Non-Rebreather 15.0 100 08/30/20 20:00 98.5 77 20 116/55 (75) 94 08/30/20 20:00 79 08/30/20 17:24 77 156/83 08/30/20 16:00 77 08/30/20 16:00 97.7 77 20 156/83 (107) 100 Intake and Output 08/30/20 08/31/20 19:00 07:00 Intake Total 500 ml 300 ml Output Total 1500 ml 1150 ml Balance -1000 ml -850 ml Intake Oral 500 ml 300 ml Output Urine Total 1500 ml 1150 ml # Voids 5 Laboratory Tests 08/30/20 16:02: POC Whole Blood Glucose 195H 08/30/20 21:20: POC Whole Blood Glucose 182H 08/31/20 07:08: Sodium Level 134L, Potassium Level 3.2L, Chloride Level 100, Carbon Dioxide Level 25, Anion Gap 9, Blood Urea Nitrogen 14, Creatinine 0.8, Estimat Glomerular Filtration Rate > 60, Glucose Level 185H, Calcium Level 8.4L, Phosphorus Level 3.3, Magnesium Level 1.7L, Total Bilirubin 0.7, Aspartate Amino Transf (AST/SGOT) 22, Alanine Aminotransferase (ALT/SGPT) 41, Alkaline Phosphatase 111, C-Reactive Protein, Quantitative 19.0H, Total Protein 6.7, Albumin 2.0L, Globulin 4.7, Albumin/Globulin Ratio 0.4L 08/31/20 11:32: POC Whole Blood Glucose 263H Height (Feet): 5 Height (Inches): 7.00 Weight (Pounds): 198 General Appearance: no apparent distress EENT: other - On nonrebreather mask Cardiovascular: tachycardia Respiratory/Chest: decreased breath sounds Abdomen: distended Tod Orona MD Aug 31, 2020 15:43
[2020-08-31 16:00] VITALS: BP 137/77
--- NOTE | 2020-08-31 19:49 | Infectious Diseases Prog Note ---
Assessment/Plan Assessment/Plan ASSESSMENT AND PLAN: 1. covid-19 virus infection with pna, hypoxia - dexamethasone and remdesivir - monitor hypoxia - monitor labs 2. Diabetes. 3. Hypertension. 4. No known allergies. 5. Social history is negative. 6. Family history is noncontributory. 7. MAR was noted. 8. Case was discussed with RN. 9. Blood sugar and blood pressure treatment per primary care team. 10. Orders were noted and entered. Subjective Constitutional: Reports: other - sob, on NR; Denies: fever HEENT: Reports: congestion Respiratory: Reports: shortness of breath Cardiovascular: Denies: chest pain Gastrointestinal/Abdominal: Denies: nausea, vomiting, diarrhea Genitourinary: Denies: dysuria, hematuria, frequency Neurologic: Reports: other - no pritchett Psychiatric: Denies: depression Skin: Denies: rash Hematologic: Denies: bleeding Musculoskeletal: Denies: pain Allergies: Coded Allergies: No Known Allergies (Unverified , 08/25/20) Objective Last 24 Hour Vital Signs Date Time Temp Pulse Resp B/P (MAP) Pulse Ox O2 Delivery O2 Flow Rate FiO2 08/31/20 19:18 95 Non-Rebreather 15.0 100 08/31/20 16:00 97.5 75 20 137/77 (97) 95 08/31/20 16:00 74 08/31/20 12:00 80 08/31/20 12:00 97.6 69 20 134/84 (101) 100 08/31/20 09:00 Non-Rebreather 15.0 08/31/20 08:39 110 121/79 08/31/20 08:00 102 08/31/20 08:00 97.7 110 24 121/79 (93) 96 08/31/20 07:00 96 Non-Rebreather 15.0 100 08/31/20 04:00 98.5 93 20 150/83 (105) 92 08/31/20 04:00 104 08/31/20 00:00 106 08/31/20 00:00 98.5 77 20 145/70 (95) 94 08/30/20 21:00 77 116/55 08/30/20 21:00 Non-Rebreather 15.0 08/30/20 20:14 98 Non-Rebreather 15.0 100 08/30/20 20:00 98.5 77 20 116/55 (75) 94 08/30/20 20:00 79 Height (Feet): 5 Height (Inches): 7.00 Weight (Pounds): 198 General Appearance: other - sob, NR - no change HEENT: normocephalic, atraumatic, anicteric Respiratory/Chest: crackles/rales, rhonchi - bilaterally Cardiovascular: normal peripheral pulses, normal rate, regular rhythm, regularl y irregular Abdomen: normal bowel sounds, soft, non tender, no organomegaly, non distended Genitourinary: other - no pritchett Extremities: no cyanosis Skin: no rash 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 The heart is enlarged. Findings are unchanged Impression: Unchanged, over 4 days, findings as above. Microbiology Date/Time Source Procedure Growth Status 08/25/20 11:30 Nasopharynx SARS-CoV-2 RdRp Gene Assay - Final Complete 08/25/20 11:30 Blood Blood Culture - Final NO GROWTH AFTER 5 DAYS Complete Labs Test 08/28/20 20:44 08/29/20 05:06 08/29/20 06:00 08/29/20 10:55 POC Whole Blood Glucose 377 MG/DL (74-106) 250 MG/DL (74-106) 449 MG/DL (74-106) White Blood Count 9.3 K/UL (4.8-10.8) Red Blood Count 4.03 M/UL (4.70-6.10) Hemoglobin 12.1 G/DL (14.2-18.0) Hematocrit 35.9 % (42.0-52.0) Mean Corpuscular Volume 89 FL (80-99) Mean Corpuscular Hemoglobin 30.0 PG (27.0-31.0) Mean Corpuscular Hemoglobin Concent 33.7 G/DL (32.0-36.0) Red Cell Distribution Width 13.6 % (11.6-14.8) Platelet Count 495 K/UL (150-450) Mean Platelet Volume 6.4 FL (6.5-10.1) Neutrophils (%) (Auto) 78.2 % (45.0-75.0) Lymphocytes (%) (Auto) 11.2 % (20.0-45.0) Monocytes (%) (Auto) 10.0 % (1.0-10.0) Eosinophils (%) (Auto) 0.3 % (0.0-3.0) Basophils (%) (Auto) 0.4 % (0.0-2.0) Sodium Level 135 MMOL/L (136-145) Potassium Level 3.0 MMOL/L (3.5-5.1) Chloride Level 100 MMOL/L (98-107) Carbon Dioxide Level 26 MMOL/L (21-32) Anion Gap 9 mmol/L (5-15) Blood Urea Nitrogen 13 mg/dL (7-18) Creatinine 0.8 MG/DL (0.55-1.30) Estimat Glomerular Filtration Rate > 60 mL/min (>60) Glucose Level 239 MG/DL (74-106) Calcium Level 8.1 MG/DL (8.5-10.1) Magnesium Level 1.6 MG/DL (1.8-2.4) Total Bilirubin 0.4 MG/DL (0.2-1.0) Direct Bilirubin 0.1 MG/DL (0.0-0.3) Aspartate Amino Transf (AST/SGOT) 20 U/L (15-37) Alanine Aminotransferase (ALT/SGPT) 46 U/L (12-78) Alkaline Phosphatase 106 U/L (46-116) C-Reactive Protein, Quantitative 17.7 mg/dL (0.00-0.90) Total Protein 6.5 G/DL (6.4-8.2) Albumin 2.0 G/DL (3.4-5.0) Globulin 4.5 g/dL Albumin/Globulin Ratio 0.4 (1.0-2.7) Test 08/29/20 16:30 08/29/20 21:01 08/30/20 04:00 08/30/20 05:37 POC Whole Blood Glucose 397 MG/DL (74-106) 367 MG/DL (74-106) 241 MG/DL (74-106) White Blood Count 10.6 K/UL (4.8-10.8) Red Blood Count 4.22 M/UL (4.70-6.10) Hemoglobin 12.7 G/DL (14.2-18.0) Hematocrit 36.5 % (42.0-52.0) Mean Corpuscular Volume 86 FL (80-99) Mean Corpuscular Hemoglobin 30.2 PG (27.0-31.0) Mean Corpuscular Hemoglobin Concent 34.9 G/DL (32.0-36.0) Red Cell Distribution Width 13.2 % (11.6-14.8) Platelet Count 561 K/UL (150-450) Mean Platelet Volume 6.7 FL (6.5-10.1) Neutrophils (%) (Auto) 80.2 % (45.0-75.0) Lymphocytes (%) (Auto) 9.2 % (20.0-45.0) Monocytes (%) (Auto) 9.6 % (1.0-10.0) Eosinophils (%) (Auto) 0.6 % (0.0-3.0) Basophils (%) (Auto) 0.4 % (0.0-2.0) Sodium Level 133 MMOL/L (136-145) Potassium Level 4.0 MMOL/L (3.5-5.1) Chloride Level 101 MMOL/L (98-107) Carbon Dioxide Level 25 MMOL/L (21-32) Anion Gap 7 mmol/L (5-15) Blood Urea Nitrogen 15 mg/dL (7-18) Creatinine 0.8 MG/DL (0.55-1.30) Estimat Glomerular Filtration Rate > 60 mL/min (>60) Glucose Level 246 MG/DL (74-106) Hemoglobin A1c 11.4 % (4.3-6.0) Uric Acid 2.9 MG/DL (2.6-7.2) Calcium Level 8.2 MG/DL (8.5-10.1) Phosphorus Level 2.6 MG/DL (2.5-4.9) Magnesium Level 1.8 MG/DL (1.8-2.4) Iron Level 31 ug/dL (50-175) Total Iron Binding Capacity 165 ug/dL (250-450) Percent Iron Saturation 19 % (15-50) Unsaturated Iron Binding 134 ug/dL (112-346) Ferritin 214 NG/ML (8-388) Total Bilirubin 0.4 MG/DL (0.2-1.0) Gamma Glutamyl Transpeptidase 51 U/L (5-85) Aspartate Amino Transf (AST/SGOT) 17 U/L (15-37) Alanine Aminotransferase (ALT/SGPT) 40 U/L (12-78) Alkaline Phosphatase 106 U/L (46-116) C-Reactive Protein, Quantitative 18.6 mg/dL (0.00-0.90) Pro-B-Type Natriuretic Peptide 177 pg/mL (0-125) Total Protein 6.5 G/DL (6.4-8.2) Albumin 2.0 G/DL (3.4-5.0) Globulin 4.5 g/dL Albumin/Globulin Ratio 0.4 (1.0-2.7) Triglycerides Level 79 MG/DL (30-150) Cholesterol Level 124 MG/DL (< 200) LDL Cholesterol 67 mg/dL (<100) HDL Cholesterol 35 MG/DL (40-60) Cholesterol/HDL Ratio 3.5 (3.3-4.4) Vitamin B12 Level 576 PG/ML (193-986) Folate 12.5 NG/ML (8.6-58.9) Thyroid Stimulating Hormone (TSH) 0.268 uiU/mL (0.358-3.740) Test 08/30/20 11:26 08/30/20 14:57 08/30/20 16:02 08/30/20 21:20 POC Whole Blood Glucose 350 MG/DL (74-106) 195 MG/DL (74-106) 182 MG/DL (74-106) Urine Collection Time 24 HRS Urine Total Volume 3200 ML Urine Total Protein mg/dL 28 mg/dL Urine Total Protein 24 Hour 27.7 mg/24hr (< 150) Test 08/31/20 07:08 08/31/20 11:32 Sodium Level 134 MMOL/L (136-145) Potassium Level 3.2 MMOL/L (3.5-5.1) Chloride Level 100 MMOL/L (98-107) Carbon Dioxide Level 25 MMOL/L (21-32) Anion Gap 9 mmol/L (5-15) Blood Urea Nitrogen 14 mg/dL (7-18) Creatinine 0.8 MG/DL (0.55-1.30) Estimat Glomerular Filtration Rate > 60 mL/min (>60) Glucose Level 185 MG/DL (74-106) Calcium Level 8.4 MG/DL (8.5-10.1) Phosphorus Level 3.3 MG/DL (2.5-4.9) Magnesium Level 1.7 MG/DL (1.8-2.4) Total Bilirubin 0.7 MG/DL (0.2-1.0) Aspartate Amino Transf (AST/SGOT) 22 U/L (15-37) Alanine Aminotransferase (ALT/SGPT) 41 U/L (12-78) Alkaline Phosphatase 111 U/L (46-116) C-Reactive Protein, Quantitative 19.0 mg/dL (0.00-0.90) Total Protein 6.7 G/DL (6.4-8.2) Albumin 2.0 G/DL (3.4-5.0) Globulin 4.7 g/dL Albumin/Globulin Ratio 0.4 (1.0-2.7) POC Whole Blood Glucose 263 MG/DL (74-106) Laboratory Tests Test 08/30/20 21:20 08/31/20 07:08 08/31/20 11:32 POC Whole Blood Glucose 182 MG/DL (74-106) H 263 MG/DL (74-106) H Sodium Level 134 MMOL/L (136-145) L Potassium Level 3.2 MMOL/L (3.5-5.1) L Chloride Level 100 MMOL/L (98-107) Carbon Dioxide Level 25 MMOL/L (21-32) Anion Gap 9 mmol/L (5-15) Blood Urea Nitrogen 14 mg/dL (7-18) Creatinine 0.8 MG/DL (0.55-1.30) Estimat Glomerular Filtration Rate > 60 mL/min (>60) Glucose Level 185 MG/DL (74-106) H Calcium Level 8.4 MG/DL (8.5-10.1) L Phosphorus Level 3.3 MG/DL (2.5-4.9) Magnesium Level 1.7 MG/DL (1.8-2.4) L Total Bilirubin 0.7 MG/DL (0.2-1.0) Aspartate Amino Transf (AST/SGOT) 22 U/L (15-37) Alanine Aminotransferase (ALT/SGPT) 41 U/L (12-78) Alkaline Phosphatase 111 U/L (46-116) C-Reactive Protein, Quantitative 19.0 mg/dL (0.00-0.90) H Total Protein 6.7 G/DL (6.4-8.2) Albumin 2.0 G/DL (3.4-5.0) L Globulin 4.7 g/dL Albumin/Globulin Ratio 0.4 (1.0-2.7) L Current Medications Medications (Trade) Dose Ordered Sig/Orion Route PRN Reason Start Time Stop Time Status Last Admin Dose Admin Acetaminophen (Tylenol) 1,000 mg Q6H PRN ORAL Mild Pain (Pain Scale 1-3) 08/28/20 08:45 09/27/20 08:44 08/28/20 12:14 Albuterol Sulfate (Proventil MDI) 2 puff Q4H PRN INH Shortness of Breath 08/26/20 11:30 11/24/20 11:29 08/28/20 06:02 Dexamethasone Sodium Phosphate (Decadron 10mg/ ml Inj) 6 mg DAILY IV 08/26/20 11:00 09/03/20 09:01 08/31/20 08:39 Dextrose (Dextrose 50%) 25 ml Q30M PRN IV Hypoglycemia 08/25/20 20:00 11/23/20 19:59 Dextrose (Dextrose 50%) 50 ml Q30M PRN IV Hypoglycemia 08/25/20 20:00 11/23/20 19:59 Docusate Sodium (Colace) 100 mg TWICE A DAY ORAL 08/29/20 18:00 09/28/20 17:59 08/31/20 08:39 Enoxaparin Sodium (Lovenox) 40 mg DAILY SUBQ 08/26/20 09:00 11/24/20 08:59 08/31/20 08:40 Insulin Aspart (NovoLOG) BEFORE MEALS AND HS SUBQ 08/25/20 21:00 11/23/20 20:59 08/31/20 16:40 Insulin Aspart (NovoLOG) 10 units BEFORE MEALS SUBQ 08/30/20 06:30 11/28/20 06:29 08/31/20 16:40 Insulin Detemir (Levemir) 20 units Q12HR SUBQ 08/30/20 09:00 11/25/20 09:29 08/31/20 08:40 Metoprolol Tartrate (Lopressor) 75 mg Q12HR ORAL 08/30/20 21:00 11/28/20 20:59 08/31/20 08:39 Pantoprazole (Protonix) 40 mg DAILY ORAL 08/29/20 12:15 09/28/20 12:14 08/31/20 08:39 Prateek Dee MD Aug 31, 2020 19:49
[2020-08-31 20:00] VITALS: BP 143/61
[2020-09-01] VITALS: BP 122/63
[2020-09-01 04:00] VITALS: BP 145/88
--- NOTE | 2020-09-01 06:20 | General Progress Note ---
Subjective Allergies: Coded Allergies: No Known Allergies (Unverified , 08/25/20) Subjective events noted interval notes reviewed mealtime glucose elevated Item Value Date Time Bedside Blood Glucose 260 mg/dl H 08/31/20 2130 Bedside Blood Glucose 301 mg/dl H 08/31/20 1640 Bedside Blood Glucose 263 mg/dl H 08/31/20 1149 Bedside Blood Glucose 199 mg/dl H 08/31/20 0840 Bedside Blood Glucose 199 mg/dl H 08/31/20 0642 Objective Last 24 Hour Vital Signs Date Time Temp Pulse Resp B/P (MAP) Pulse Ox O2 Delivery O2 Flow Rate FiO2 09/01/20 04:00 62 09/01/20 04:00 97.2 71 20 145/88 (107) 99 09/01/20 00:00 96.9 60 20 122/63 (82) 99 09/01/20 00:00 62 08/31/20 21:22 70 143/61 08/31/20 21:00 Non-Rebreather 15.0 08/31/20 20:00 71 08/31/20 20:00 96.8 70 20 143/61 (88) 98 08/31/20 19:18 95 Non-Rebreather 15.0 100 08/31/20 16:00 97.5 75 20 137/77 (97) 95 08/31/20 16:00 74 08/31/20 12:00 80 08/31/20 12:00 97.6 69 20 134/84 (101) 100 08/31/20 09:00 Non-Rebreather 15.0 08/31/20 08:39 110 121/79 08/31/20 08:00 102 08/31/20 08:00 97.7 110 24 121/79 (93) 96 08/31/20 07:00 96 Non-Rebreather 15.0 100 Laboratory Tests 08/31/20 07:08: Sodium Level 134L, Potassium Level 3.2L, Chloride Level 100, Carbon Dioxide Level 25, Anion Gap 9, Blood Urea Nitrogen 14, Creatinine 0.8, Estimat Glomerular Filtration Rate > 60, Glucose Level 185H, Calcium Level 8.4L, Phosphorus Level 3.3, Magnesium Level 1.7L, Total Bilirubin 0.7, Aspartate Amino Transf (AST/SGOT) 22, Alanine Aminotransferase (ALT/SGPT) 41, Alkaline Phosphatase 111, C-Reactive Protein, Quantitative 19.0H, Total Protein 6.7, Albumin 2.0L, Globulin 4.7, Albumin/Globulin Ratio 0.4L 08/31/20 11:32: POC Whole Blood Glucose 263H 08/31/20 20:44: POC Whole Blood Glucose 260H 09/01/20 05:22: POC Whole Blood Glucose 298H Height (Feet): 5 Height (Inches): 7.00 Weight (Pounds): 198 Objective Current Medications Medications (Trade) Dose Ordered Sig/Orion Route PRN Reason Start Time Stop Time Status Last Admin Dose Admin Acetaminophen (Tylenol) 1,000 mg Q6H PRN ORAL Mild Pain (Pain Scale 1-3) 08/28/20 08:45 09/27/20 08:44 08/28/20 12:14 Albuterol Sulfate (Proventil MDI) 2 puff Q4H PRN INH Shortness of Breath 08/26/20 11:30 11/24/20 11:29 08/28/20 06:02 Dexamethasone Sodium Phosphate (Decadron 10mg/ ml Inj) 6 mg DAILY IV 08/26/20 11:00 09/03/20 09:01 08/31/20 08:39 Dextrose (Dextrose 50%) 25 ml Q30M PRN IV Hypoglycemia 08/25/20 20:00 11/23/20 19:59 Dextrose (Dextrose 50%) 50 ml Q30M PRN IV Hypoglycemia 08/25/20 20:00 11/23/20 19:59 Docusate Sodium (Colace) 100 mg TWICE A DAY ORAL 08/29/20 18:00 09/28/20 17:59 08/31/20 08:39 Enoxaparin Sodium (Lovenox) 40 mg DAILY SUBQ 08/26/20 09:00 11/24/20 08:59 08/31/20 08:40 Insulin Aspart (NovoLOG) BEFORE MEALS AND HS SUBQ 08/25/20 21:00 11/23/20 20:59 08/31/20 21:18 Insulin Aspart (NovoLOG) 10 units BEFORE MEALS SUBQ 08/30/20 06:30 11/28/20 06:29 08/31/20 16:40 Insulin Detemir (Levemir) 20 units Q12HR SUBQ 08/30/20 09:00 11/25/20 09:29 08/31/20 21:19 Metoprolol Tartrate (Lopressor) 75 mg Q12HR ORAL 08/30/20 21:00 11/28/20 20:59 08/31/20 21:22 Pantoprazole (Protonix) 40 mg DAILY ORAL 08/29/20 12:15 09/28/20 12:14 08/31/20 08:39 Assessment/Plan Problem List: (1) COVID-19 ICD Codes: U07.1 - COVID-19 SNOMED: 873728870 (2) Pneumonia ICD Codes: J18.9 - Pneumonia, unspecified organism SNOMED: 233399643 (3) DMII (diabetes mellitus, type 2) ICD Codes: E11.9 - Type 2 diabetes mellitus without complications SNOMED: 30717172 Assessment/Plan: continue Levemir 20 units bid increase Novolog to 12 units ac tid continue Novolog sliding scale ac hs Jasvir Knutson MD Sep 01, 2020 06:20
[2020-09-01] MEDS: NovoLOG Insulin Flexpen SUBQ SCH ×7 (06:42→21:44)
[2020-09-01 08:00] VITALS: BP 167/82
[2020-09-01] MEDS: Docusate 100mg cap ORAL SCH ×2 (08:43→18:23)
[2020-09-01] MEDS: dexAMETHasone 10mg/ml Inj IV SCH (08:43)
[2020-09-01] MEDS: Enoxaparin 40mg Inj SUBQ SCH (08:45)
[2020-09-01] MEDS: Levemir Flexpen SUBQ SCH ×2 (08:47→21:43)
[2020-09-01 10:11] LABS: BASOPHILS % (AUTO) 0.9 % (0.0-2.0); EOSINOPHILS % (AUTO) 0.9 % (0.0-3.0); HEMATOCRIT 38.1 % (42.0-52.0); HEMOGLOBIN 12.8 G/DL (14.2-18.0); LYMPHOCYTES % (AUTO) 8.6 % (20.0-45.0); MEAN CORPUSCULAR VOLUME 90 FL (80-99); MONOCYTES % (AUTO) 8.8 % (1.0-10.0); NEUTROPHILS % (AUTO) 80.8 % (45.0-75.0); PLATELET COUNT 649 K/UL (150-450); RED BLOOD COUNT 4.25 M/UL (4.70-6.10); RED CELL DISTRIBUTION WIDTH 14.2 % (11.6-14.8); WHITE BLOOD COUNT 13.1 K/UL (4.8-10.8)
[2020-09-01 10:30] LABS: ALANINE AMINOTRANSFERASE 65 U/L (12-78); ALBUMIN/GLOBULIN RATIO 0.4 (1.0-2.7); ALKALINE PHOSPHATASE 119 U/L (46-116); ANION GAP 7 mmol/L (5-15); ASPARTATE AMINO TRANSFERASE 35 U/L (15-37); BILIRUBIN,TOTAL 0.6 MG/DL (0.2-1.0); BLOOD UREA NITROGEN 15 mg/dL (7-18); CALCIUM 8.3 MG/DL (8.5-10.1); CARBON DIOXIDE 25 MMOL/L (21-32); CHLORIDE 99 MMOL/L (98-107); CREATININE 0.9 MG/DL (0.55-1.30); POTASSIUM 3.6 MMOL/L (3.5-5.1); SODIUM 131 MMOL/L (136-145)
--- NOTE | 2020-09-01 10:31 | Pulmonology Progress Note ---
Subjective ROS Limited/Unobtainable: Yes Constitutional: Reports: other - sob, on NR; Denies: fever Gastrointestinal/Abdominal: Denies: nausea, vomiting, diarrhea Psychiatric: Denies: depression Skin: Denies: rash Musculoskeletal: Denies: pain Allergies: Coded Allergies: No Known Allergies (Unverified , 08/25/20) Subjective still on NRM ,unable to wean completely but ambulates to the bathroom and eats without NRM occasional dry cough no fevers leukocytosis this am denies CP completed Remdesivir BS and BP better Objective Last 24 Hour Vital Signs Date Time Temp Pulse Resp B/P (MAP) Pulse Ox O2 Delivery O2 Flow Rate FiO2 09/01/20 08:43 83 169/80 09/01/20 04:00 62 09/01/20 04:00 97.2 71 20 145/88 (107) 99 09/01/20 00:00 96.9 60 20 122/63 (82) 99 09/01/20 00:00 62 08/31/20 21:22 70 143/61 08/31/20 21:00 Non-Rebreather 15.0 08/31/20 20:00 71 08/31/20 20:00 96.8 70 20 143/61 (88) 98 08/31/20 19:18 95 Non-Rebreather 15.0 100 08/31/20 16:00 97.5 75 20 137/77 (97) 95 08/31/20 16:00 74 08/31/20 12:00 80 08/31/20 12:00 97.6 69 20 134/84 (101) 100 Intake and Output 08/31/20 09/01/20 19:00 07:00 Intake Total 300 ml Output Total 725 ml Balance -425 ml Intake Oral 300 ml Output Urine Total 725 ml # Voids 2 Objective General Appearance: no apparent distress Lines, tubes and drains: peripheral HEENT: normocephalic, atraumatic, anicteric, mucous membranes moist, PERRL, on NRM Neck: supple Respiratory/Chest: chest wall non-tender, BS decreased, Cardiac: normal rate, regular rhythm - SR Abdomen: normal bowel sounds, non tender, soft Extremities: normal range of motion, no calf tenderness, normal capillary refill Skin Exam: warm/dry 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, no motor/sensory deficits, alert, orient ed x 3, responsive Musculoskeletal: normal muscle bulk Laboratory Tests 08/31/20 11:32: POC Whole Blood Glucose 263H 08/31/20 20:44: POC Whole Blood Glucose 260H 09/01/20 05:22: POC Whole Blood Glucose 298H 09/01/20 09:35: White Blood Count 13.1H, Red Blood Count 4.25L, Hemoglobin 12.8L, Hematocrit 38.1L, Mean Corpuscular Volume 90, Mean Corpuscular Hemoglobin 30.2, Mean Corpuscular Hemoglobin Concent 33.6, Red Cell Distribution Width 14.2, Platelet Count 649H, Mean Platelet Volume 6.8, Neutrophils (%) (Auto) 80.8H, Lymphocytes (%) (Auto) 8.6L, Monocytes (%) (Auto) 8.8, Eosinophils (%) (Auto) 0.9, Basophils (%) (Auto) 0.9, Sodium Level [Pending], Potassium Level [Pending], Chloride Level [Pending], Carbon Dioxide Level [Pending], Blood Urea Nitrogen [Pending], Creatinine [Pending], Estimat Glomerular Filtration Rate [Pending], Glucose Lev el [Pending], Calcium Level [Pending], Phosphorus Level [Pending], Magnesium Level [Pending], Total Bilirubin [Pending], Aspartate Amino Transf (AST/SGOT) [Pending], Alanine Aminotransferase (ALT/SGPT) [Pending], Alkaline Phosphatase [Pending], Total Protein [Pending], Albumin [Pending], Globulin [Pending] Current Medications Medications (Trade) Dose Ordered Sig/Orion Route PRN Reason Start Time Stop Time Status Last Admin Dose Admin Acetaminophen (Tylenol) 1,000 mg Q6H PRN ORAL Mild Pain (Pain Scale 1-3) 08/28/20 08:45 09/27/20 08:44 08/28/20 12:14 Albuterol Sulfate (Proventil MDI) 2 puff Q4H PRN INH Shortness of Breath 08/26/20 11:30 11/24/20 11:29 08/28/20 06:02 Dexamethasone Sodium Phosphate (Decadron 10mg/ ml Inj) 6 mg DAILY IV 08/26/20 11:00 09/03/20 09:01 09/01/20 08:43 Dextrose (Dextrose 50%) 25 ml Q30M PRN IV Hypoglycemia 08/25/20 20:00 11/23/20 19:59 Dextrose (Dextrose 50%) 50 ml Q30M PRN IV Hypoglycemia 08/25/20 20:00 11/23/20 19:59 Docusate Sodium (Colace) 100 mg TWICE A DAY ORAL 08/29/20 18:00 09/28/20 17:59 09/01/20 08:43 Enoxaparin Sodium (Lovenox) 40 mg DAILY SUBQ 08/26/20 09:00 11/24/20 08:59 09/01/20 08:45 Insulin Aspart (NovoLOG) BEFORE MEALS AND HS SUBQ 08/25/20 21:00 11/23/20 20:59 09/01/20 06:42 Insulin Aspart (NovoLOG) 12 units BEFORE MEALS SUBQ 09/01/20 06:30 11/28/20 06:29 09/01/20 06:43 Insulin Detemir (Levemir) 20 units Q12HR SUBQ 08/30/20 09:00 11/25/20 09:29 09/01/20 08:47 Metoprolol Tartrate (Lopressor) 75 mg Q12HR ORAL 08/30/20 21:00 11/28/20 20:59 09/01/20 08:43 Pantoprazole (Protonix) 40 mg DAILY ORAL 08/29/20 12:15 09/28/20 12:14 09/01/20 08:43 Assessment/Plan Assessment/Plan ASSESSMENT COVID 19 pneumonia Acute hypoxemic resp failure due to COVID 19 PNA Hypokalemia /persistent Hypo Mg DM with hyperglycemia/DMOOC HTN PLAN OF CARE tele O2 titrate to keep sat > 92%, still on 100% NRM , titrate to keep sat > 92%, so far unable to wean completely, only intermittently prone position encouraged as tolerated continue Dexamethasone , completed Remdesivir (monitor LFT, renal paramerts- stable ) ID follows a/c with Lovenox ( PPX dose) Venous Duplex BLE NGT CXR 08/29 -> no change fup CXR 09/02 fup inflammatory markers: latest CRP 19.0 Albuterol MDI prn nephro follows additional K and Mg replaced 12/30 chemistry pending for this am diabetic diet and diabetic teaching [id number] not at goal BS as per endo recs, BS better BP management, now better with new increased dose of Metoprolol supportive care still hypoxic case discussed and evaluated by supervising physician Zoë Martinez NP Sep 01, 2020 10:31
[2020-09-01 12:00] VITALS: BP 149/71
[2020-09-01] MEDS: Magnesium Oxide 400mg tab ORAL SCH ×2 (12:42→18:23)
[2020-09-01] MEDS: Phospha 250 Neutral tab ORAL SCH ×2 (12:42→18:23)
[2020-09-01] MEDS ORDERED: NaCl 3% 500ml 250 ML IV ONE (14:00)
[2020-09-01 16:00] VITALS: BP 144/67
[2020-09-01 20:00] VITALS: BP 125/69
[2020-09-01] MEDS ORDERED: Insulin Human Regular 100units/ml 3ml SUBQ ONE (20:00)
[2020-09-02] VITALS: BP 146/79
[2020-09-02 04:00] VITALS: BP 156/64
[2020-09-02 05:18] LABS: BASOPHILS % (AUTO) 0.7 % (0.0-2.0); EOSINOPHILS % (AUTO) 0.9 % (0.0-3.0); HEMATOCRIT 37.1 % (42.0-52.0); HEMOGLOBIN 12.4 G/DL (14.2-18.0); LYMPHOCYTES % (AUTO) 10.9 % (20.0-45.0); MEAN CORPUSCULAR VOLUME 92 FL (80-99); MONOCYTES % (AUTO) 9.4 % (1.0-10.0); NEUTROPHILS % (AUTO) 78.1 % (45.0-75.0); PLATELET COUNT 645 K/UL (150-450); RED BLOOD COUNT 4.05 M/UL (4.70-6.10); RED CELL DISTRIBUTION WIDTH 13.2 % (11.6-14.8); WHITE BLOOD COUNT 11.9 K/UL (4.8-10.8)
[2020-09-02] MEDS: NovoLOG Insulin Flexpen SUBQ SCH ×7 (05:44→22:28)
[2020-09-02 06:50] LABS: ALANINE AMINOTRANSFERASE 77 U/L (12-78); ALBUMIN 1.9 G/DL (3.4-5.0); ALBUMIN/GLOBULIN RATIO 0.4 (1.0-2.7); ALKALINE PHOSPHATASE 105 U/L (46-116); ASPARTATE AMINO TRANSFERASE 34 U/L (15-37); BILIRUBIN,TOTAL 0.4 MG/DL (0.2-1.0); BLOOD UREA NITROGEN 14 mg/dL (7-18); CALCIUM 8.6 MG/DL (8.5-10.1); CARBON DIOXIDE 26 MMOL/L (21-32); CREATININE 0.8 MG/DL (0.55-1.30)
[2020-09-02 07:43] LABS: CHLORIDE 101 MMOL/L (98-107); POTASSIUM 3.6 MMOL/L (3.5-5.1); SODIUM 135 MMOL/L (136-145)
[2020-09-02 08:00] VITALS: BP 145/66
[2020-09-02] MEDS: Magnesium Oxide 400mg tab ORAL SCH ×3 (08:08→18:47)
[2020-09-02] MEDS: dexAMETHasone 10mg/ml Inj IV SCH (08:08)
[2020-09-02] MEDS: Docusate 100mg cap ORAL SCH ×2 (08:08→18:47)
[2020-09-02] MEDS: Phospha 250 Neutral tab ORAL SCH ×3 (08:09→18:47)
[2020-09-02] MEDS: Enoxaparin 40mg Inj SUBQ SCH (08:11)
[2020-09-02] MEDS: Levemir Flexpen SUBQ SCH ×2 (08:16→22:27)
--- NOTE | 2020-09-02 11:16 | Pulmonology Progress Note ---
Subjective ROS Limited/Unobtainable: Yes Constitutional: Reports: other - sob, on NR; Denies: fever Gastrointestinal/Abdominal: Denies: nausea, vomiting, diarrhea Psychiatric: Denies: depression Skin: Denies: rash Musculoskeletal: Denies: pain Allergies: Coded Allergies: No Known Allergies (Unverified , 08/25/20) Subjective still on NRM ,unable to wean completely but ambulates to the bathroom and eats without NRM occasional dry cough no fevers mild leukocytosis denies CP completed Remdesivir BS and BP better Objective Last 24 Hour Vital Signs Date Time Temp Pulse Resp B/P (MAP) Pulse Ox O2 Delivery O2 Flow Rate FiO2 09/02/20 09:00 Non-Rebreather 15.0 09/02/20 08:17 81 119/60 09/02/20 08:00 86 09/02/20 08:00 97.9 87 22 145/66 (92) 99 09/02/20 04:00 97.7 63 20 156/64 (94) 100 09/02/20 04:00 71 09/02/20 00:00 97.9 68 20 146/79 (101) 100 09/02/20 00:00 68 09/01/20 21:42 75 122/61 09/01/20 21:00 Non-Rebreather 15.0 09/01/20 20:00 97.9 73 20 125/69 (87) 97 09/01/20 20:00 76 09/01/20 19:55 95 Non-Rebreather 15.0 100 09/01/20 16:00 75 09/01/20 16:00 98.0 73 20 144/67 (92) 98 09/01/20 12:00 79 09/01/20 12:00 97.8 82 20 149/71 (97) 93 Intake and Output 09/01/20 09/02/20 19:00 07:00 Intake Total 1150 ml 530 ml Output Total 800 ml Balance 350 ml 530 ml Intake Oral 1000 ml 500 ml IV Total 150 ml 30 ml Output Urine Total 800 ml # Voids 4 3 Objective General Appearance: no apparent distress Lines, tubes and drains: peripheral HEENT: normocephalic, atraumatic, anicteric, mucous membranes moist, PERRL, on NRM Neck: supple Respiratory/Chest: chest wall non-tender, BS decreased, Cardiac: normal rate, regular rhythm - SR Abdomen: normal bowel sounds, non tender, soft Extremities: normal range of motion, no calf tenderness, normal capillary refill Skin Exam: warm/dry 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 II-XII grossly normal, no motor/sensory deficits, alert, oriented x 3, responsive Musculoskeletal: normal muscle bulk Laboratory Tests 09/01/20 16:49: POC Whole Blood Glucose 418H 09/01/20 17:27: POC Whole Blood Glucose 435H 09/01/20 18:47: POC Whole Blood Glucose 504*H 09/01/20 20:05: POC Whole Blood Glucose 354H 09/02/20 03:30: White Blood Count 11.9H, Red Blood Count 4.05L, Hemoglobin 12.4L, Hematocrit 37.1L, Mean Corpuscular Volume 92, Mean Corpuscular Hemoglobin 30.6, Mean Corpuscular Hemoglobin Concent 33.3, Red Cell Distribution Width 13.2, Platelet Count 645H, Mean Platelet Volume 6.9, Neutrophils (%) (Auto) 78.1H, Lymphocytes (%) (Auto) 10.9L, Monocytes (%) (Auto) 9.4, Eosinophils (%) (Auto) 0.9, Basophils (%) (Auto) 0.7, Sodium Level 135L, Potassium Level 3.6, Chloride Level 101, Carbon Dioxide Level 26, Blood Urea Nitrogen 14, Creatinine 0.8, Estimat Glomerular Filtration Rate > 60, Glucose Level 140#H, Uric Acid 2.2L, Calcium Level 8.6, Phosphorus Level 4.0, Magnesium Level 1.9, Total Bilirubin 0.4, Aspartate Amino Transf (AST/SGOT) 34, Alanine Aminotransferase (ALT/SGPT) 77, Alkaline Phosphatase 105, C-Reactive Protein, Quantitative 11.1H, Total Protein 6.7, Albumin 1.9L, Globulin 4.8, Albumin/Globulin Ratio 0.4L 09/02/20 05:31: POC Whole Blood Glucose 106 09/02/20 08:15: POC Whole Blood Glucose 207H Current Medications Medications (Trade) Dose Ordered Sig/Orion Route PRN Reason Start Time Stop Time Status Last Admin Dose Admin Acetaminophen (Tylenol) 1,000 mg Q6H PRN ORAL Mild Pain (Pain Scale 1-3) 08/28/20 08:45 09/27/20 08:44 08/28/20 12:14 Albuterol Sulfate (Proventil MDI) 2 puff Q4H PRN INH Shortness of Breath 08/26/20 11:30 11/24/20 11:29 08/28/20 06:02 Dexamethasone Sodium Phosphate (Decadron 10mg/ ml Inj) 6 mg DAILY IV 08/26/20 11:00 09/03/20 09:01 09/02/20 08:08 Dextrose (Dextrose 50%) 25 ml Q30M PRN IV Hypoglycemia 08/25/20 20:00 11/23/20 19:59 Dextrose (Dextrose 50%) 50 ml Q30M PRN IV Hypoglycemia 08/25/20 20:00 11/23/20 19:59 Docusate Sodium (Colace) 100 mg TWICE A DAY ORAL 08/29/20 18:00 09/28/20 17:59 09/02/20 08:08 Enoxaparin Sodium (Lovenox) 40 mg DAILY SUBQ 08/26/20 09:00 11/24/20 08:59 09/02/20 08:11 Insulin Aspart (NovoLOG) BEFORE MEALS AND HS SUBQ 08/25/20 21:00 11/23/20 20:59 09/01/20 21:44 Insulin Aspart (NovoLOG) 12 units BEFORE MEALS SUBQ 09/01/20 06:30 11/28/20 06:29 09/02/20 05:45 Insulin Detemir (Levemir) 20 units Q12HR SUBQ 08/30/20 09:00 11/25/20 09:29 09/02/20 08:16 Magnesium Oxide (Mag-Ox 400mg) 400 mg THREE TIMES A DAY ORAL 09/01/20 13:00 10/01/20 12:59 09/02/20 08:08 Metoprolol Tartrate (Lopressor) 75 mg Q12HR ORAL 08/30/20 21:00 11/28/20 20:59 09/02/20 08:17 Pantoprazole (Protonix) 40 mg DAILY ORAL 08/29/20 12:15 09/28/20 12:14 09/02/20 08:09 Phosphorus (Phospha 250 Neutral) 500 mg THREE TIMES A DAY ORAL 09/01/20 13:00 10/01/20 12:59 09/02/20 08:09 Assessment/Plan Assessment/Plan ASSESSMENT COVID 19 pneumonia Acute hypoxemic resp failure due to COVID 19 PNA Hypokalemia /persistent Hypo Mg DM with hyperglycemia/DMOOC HTN PLAN OF CARE tele O2 titrate to keep sat > 92%, still on 100% NRM , titrate to keep sat > 92%, so far unable to wean completely, only intermittently prone position encouraged as tolerated continue Dexamethasone , completed Remdesivir (monitor LFT, renal paramerts- stable ) ID follows a/c with Lovenox ( PPX dose) Venous Duplex BLE NGT CXR 08/29 -> no change CXR 09/02 ebony, no image uploaded yet fup inflammatory markers: latest CRP -11.1 trending down Albuterol MDI prn nephro follows further replace e/lytes as needed diabetic diet and diabetic teaching [id number] not at goal BS as per endo recs, BS better BP management, now better with new increased dose of Metoprolol supportive care still hypoxic case discussed and evaluated by supervising physician Zoë Martinez NP Sep 02, 2020 11:16 Carmelo Combs MD Sep 02, 2020 19:55
[2020-09-02 12:00] VITALS: BP 139/63
--- NOTE | 2020-09-02 12:00 | Diagnostic Imaging Report ---
EXAM: XR Chest, 1 View CLINICAL HISTORY: Shortness of breath TECHNIQUE: Frontal view of the chest. COMPARISON: Chest x-rays dated 08/29/20 FINDINGS: Lungs: No significant interval change in bilateral pulmonary opacities, concerning for pneumonia. Pleural space: Unremarkable. The costophrenic angles are sharp. No visible pneumothorax. Heart: Unremarkable. No cardiomegaly. Mediastinum: Unremarkable. Bones/joints: Unremarkable. Tubes, lines and devices: Telemetry leads overlie the thorax. IMPRESSION: No significant interval change in bilateral pulmonary opacities, concerning for pneumonia.
--- NOTE | 2020-09-02 15:02 | General Progress Note ---
Subjective Allergies: Coded Allergies: No Known Allergies (Unverified , 08/25/20) All Systems: reviewed and negative except above Subjective events noted interval notes reviewed mealtime glucose elevated Item Value Date Time Bedside Blood Glucose 282 mg/dl H 09/02/20 1137 Bedside Blood Glucose 207 mg/dl H 09/02/20 0816 Bedside Blood Glucose 106 mg/dl 09/02/20 0630 Bedside Blood Glucose 354 mg/dl H 09/01/20 2144 Bedside Blood Glucose 418 mg/dl H 09/01/20 1657 Bedside Blood Glucose 404 mg/dl H 09/01/20 1216 Bedside Blood Glucose 298 mg/dl H 09/01/20 0847 Objective Last 24 Hour Vital Signs Date Time Temp Pulse Resp B/P (MAP) Pulse Ox O2 Delivery O2 Flow Rate FiO2 09/02/20 12:00 97.7 71 20 139/63 (88) 98 09/02/20 12:00 87 09/02/20 09:00 Non-Rebreather 15.0 09/02/20 08:17 81 119/60 09/02/20 08:00 86 09/02/20 08:00 97.9 87 22 145/66 (92) 99 09/02/20 04:00 97.7 63 20 156/64 (94) 100 09/02/20 04:00 71 09/02/20 00:00 97.9 68 20 146/79 (101) 100 09/02/20 00:00 68 09/01/20 21:42 75 122/61 09/01/20 21:00 Non-Rebreather 15.0 09/01/20 20:00 97.9 73 20 125/69 (87) 97 09/01/20 20:00 76 09/01/20 19:55 95 Non-Rebreather 15.0 100 09/01/20 16:00 75 09/01/20 16:00 98.0 73 20 144/67 (92) 98 Intake and Output 09/01/20 09/02/20 19:00 07:00 Intake Total 1150 ml 530 ml Output Total 800 ml Balance 350 ml 530 ml Intake Oral 1000 ml 500 ml IV Total 150 ml 30 ml Output Urine Total 800 ml # Voids 4 3 Laboratory Tests 09/01/20 16:49: POC Whole Blood Glucose 418H 09/01/20 17:27: POC Whole Blood Glucose 435H 09/01/20 18:47: POC Whole Blood Glucose 504*H 09/01/20 20:05: POC Whole Blood Glucose 354H 09/02/20 03:30: White Blood Count 11.9H, Red Blood Count 4.05L, Hemoglobin 12.4L, Hematocrit 37.1L, Mean Corpuscular Volume 92, Mean Corpuscular Hemoglobin 30.6, Mean Corpuscular Hemoglobin Concent 33.3, Red Cell Distribution Width 13.2, Platelet Count 645H, Mean Platelet Volume 6.9, Neutrophils (%) (Auto) 78.1H, Lymphocytes (%) (Auto) 10.9L, Monocytes (%) (Auto) 9.4, Eosinophils (%) (Auto) 0.9, Basophils (%) (Auto) 0.7, Sodium Level 135L, Potassium Level 3.6, Chloride Level 101, Carbon Dioxide Level 26, Blood Urea Nitrogen 14, Creatinine 0.8, Estimat Glomerular Filtration Rate > 60, Glucose Level 140#H, Uric Acid 2.2L, Calcium Level 8.6, Phosphorus Level 4.0, Magnesium Level 1.9, Total Bilirubin 0.4, Aspartate Amino Transf (AST/SGOT) 34, Alanine Aminotransferase (ALT/SGPT) 77, Alkaline Phosphatase 105, C-Reactive Protein, Quantitative 11.1H, Total Protein 6.7, Albumin 1.9L, Globulin 4.8, Albumin/Globulin Ratio 0.4L 09/02/20 05:31: POC Whole Blood Glucose 106 09/02/20 08:15: POC Whole Blood Glucose 207H 09/02/20 11:19: POC Whole Blood Glucose 282H Height (Feet): 5 Height (Inches): 7.00 Weight (Pounds): 198 Objective Current Medications Medications (Trade) Dose Ordered Sig/Orion Route PRN Reason Start Time Stop Time Status Last Admin Dose Admin Acetaminophen (Tylenol) 1,000 mg Q6H PRN ORAL Mild Pain (Pain Scale 1-3) 08/28/20 08:45 09/27/20 08:44 08/28/20 12:14 Albuterol Sulfate (Proventil MDI) 2 puff Q4H PRN INH Shortness of Breath 08/26/20 11:30 11/24/20 11:29 08/28/20 06:02 Dexamethasone Sodium Phosphate (Decadron 10mg/ ml Inj) 6 mg DAILY IV 08/26/20 11:00 09/03/20 09:01 09/02/20 08:08 Dextrose (Dextrose 50%) 25 ml Q30M PRN IV Hypoglycemia 08/25/20 20:00 11/23/20 19:59 Dextrose (Dextrose 50%) 50 ml Q30M PRN IV Hypoglycemia 08/25/20 20:00 11/23/20 19:59 Docusate Sodium (Colace) 100 mg TWICE A DAY ORAL 08/29/20 18:00 09/28/20 17:59 09/02/20 08:08 Enoxaparin Sodium (Lovenox) 40 mg DAILY SUBQ 08/26/20 09:00 11/24/20 08:59 09/02/20 08:11 Insulin Aspart (NovoLOG) BEFORE MEALS AND HS SUBQ 08/25/20 21:00 11/23/20 20:59 09/02/20 11:36 Insulin Aspart (NovoLOG) 12 units BEFORE MEALS SUBQ 09/01/20 06:30 11/28/20 06:29 09/02/20 11:37 Insulin Detemir (Levemir) 20 units Q12HR SUBQ 08/30/20 09:00 11/25/20 09:29 09/02/20 08:16 Magnesium Oxide (Mag-Ox 400mg) 400 mg THREE TIMES A DAY ORAL 09/01/20 13:00 10/01/20 12:59 09/02/20 13:06 Metoprolol Tartrate (Lopressor) 75 mg Q12HR ORAL 08/30/20 21:00 11/28/20 20:59 09/02/20 08:17 Pantoprazole (Protonix) 40 mg DAILY ORAL 08/29/20 12:15 09/28/20 12:14 09/02/20 08:09 Phosphorus (Phospha 250 Neutral) 500 mg THREE TIMES A DAY ORAL 09/01/20 13:00 10/01/20 12:59 09/02/20 13:06 Assessment/Plan Problem List: (1) COVID-19 ICD Codes: U07.1 - COVID-19 SNOMED: 832548297 (2) Pneumonia ICD Codes: J18.9 - Pneumonia, unspecified organism SNOMED: 297109998 (3) DMII (diabetes mellitus, type 2) ICD Codes: E11.9 - Type 2 diabetes mellitus without complications SNOMED: 38067501 Assessment/Plan: continue Levemir 20 units bid increase Novolog to 15 units ac tid continue Novolog sliding scale ac hs Jasvir Knutson MD Sep 02, 2020 15:02
[2020-09-02 16:00] VITALS: BP 145/74
--- NOTE | 2020-09-02 17:14 | Nephrology Progress Note ---
Assessment/Plan Problem List: (1) Dehydration (2) Electrolyte imbalance (3) COVID-19 (4) Pneumonia (5) Diabetic nephropathy (6) DMII (diabetes mellitus, type 2) Assessment Low sodium Low potassium Low magnesium Diabetes mellitus, hyperglycemia 4+ proteinuria, hypoalbuminemia COVID-19 pneumonia, hypoxia Hypertension Plan September 02: Labs reviewed. Renal parameters are stable. Continue per consultants. August 31: Labs reviewed. Abnormal electrolytes addressed. Continue to monitor electrolytes. Per consultants. August 30: Labs reviewed. Sodium 133. Potassium and magnesium level are within normal limits. Continue per consultants. Previously: Mag, potassium supplement Monitor electrolytes and chemistries Check vitamin D level 24-hour urine collection for total protein Continue per consultants Subjective ROS Limited/Unobtainable: No Constitutional: Reports: malaise Objective Objective Last 24 Hour Vital Signs Date Time Temp Pulse Resp B/P (MAP) Pulse Ox O2 Delivery O2 Flow Rate FiO2 09/02/20 12:00 97.7 71 20 139/63 (88) 98 09/02/20 12:00 87 09/02/20 09:00 Non-Rebreather 15.0 09/02/20 08:17 81 119/60 09/02/20 08:00 86 09/02/20 08:00 97.9 87 22 145/66 (92) 99 09/02/20 04:00 97.7 63 20 156/64 (94) 100 09/02/20 04:00 71 09/02/20 00:00 97.9 68 20 146/79 (101) 100 09/02/20 00:00 68 09/01/20 21:42 75 122/61 09/01/20 21:00 Non-Rebreather 15.0 09/01/20 20:00 97.9 73 20 125/69 (87) 97 09/01/20 20:00 76 09/01/20 19:55 95 Non-Rebreather 15.0 100 Intake and Output 09/01/20 09/02/20 19:00 07:00 Intake Total 1150 ml 530 ml Output Total 800 ml Balance 350 ml 530 ml Intake Oral 1000 ml 500 ml IV Total 150 ml 30 ml Output Urine Total 800 ml # Voids 4 3 Laboratory Tests 09/01/20 17:27: POC Whole Blood Glucose 435H 09/01/20 18:47: POC Whole Blood Glucose 504*H 09/01/20 20:05: POC Whole Blood Glucose 354H 09/02/20 03:30: White Blood Count 11.9H, Red Blood Count 4.05L, Hemoglobin 12.4L, Hematocrit 37.1L, Mean Corpuscular Volume 92, Mean Corpuscular Hemoglobin 30.6, Mean Co rpuscular Hemoglobin Concent 33.3, Red Cell Distribution Width 13.2, Platelet Count 645H, Mean Platelet Volume 6.9, Neutrophils (%) (Auto) 78.1H, Lymphocytes (%) (Auto) 10.9L, Monocytes (%) (Auto) 9.4, Eosinophils (%) (Auto) 0.9, Basophils (%) (Auto) 0.7, Sodium Level 135L, Potassium Level 3.6, Chloride Level 101, Carbon Dioxide Level 26, Blood Urea Nitrogen 14, Creatinine 0.8, Estimat Glomerular Filtration Rate > 60, Glucose Level 140#H, Uric Acid 2.2L, Calcium Level 8.6, Phosphorus Level 4.0, Magnesium Level 1.9, Total Bilirubin 0.4, Aspartate Amino Transf (AST/SGOT) 34, Alanine Aminotransferase (ALT/SGPT) 77, Alkaline Phosphatase 105, C-Reactive Protein, Quantitative 11.1H, Total Protein 6.7, Albumin 1.9L, Globulin 4.8, Albumin/Globulin Ratio 0.4L 09/02/20 05:31: POC Whole Blood Glucose 106 09/02/20 08:15: POC Whole Blood Glucose 207H 09/02/20 11:19: POC Whole Blood Glucose 282H Height (Feet): 5 Height (Inches): 7.00 Weight (Pounds): 198 General Appearance: no apparent distress Cardiovascular: tachycardia Respiratory/Chest: decreased breath sounds Abdomen: soft Tod Orona MD Sep 02, 2020 17:14
--- NOTE | 2020-09-02 19:06 | Infectious Diseases Prog Note ---
Assessment/Plan Assessment/Plan ASSESSMENT AND PLAN: 1. covid-19 virus infection with pna, hypoxia leukocytosis secondary to steroids - dexamethasone and remdesivir - monitor hypoxia - monitor labs 2. Diabetes. 3. Hypertension. 4. No known allergies. 5. Social history is negative. 6. Family history is noncontributory. 7. MAR was noted. 8. Case was discussed with RN. 9. Blood sugar and blood pressure treatment per primary care team. 10. Orders were noted and entered. Subjective Constitutional: Reports: other - on NR HEENT: Reports: congestion Respiratory: Reports: shortness of breath Cardiovascular: Denies: chest pain Gastrointestinal/Abdominal: Denies: nausea, vomiting, diarrhea Genitourinary: Reports: other - no pritchett Neurologic: Denies: headache Psychiatric: Denies: depression Skin: Denies: rash Hematologic: Denies: bleeding Musculoskeletal: Denies: pain Allergies: Coded Allergies: No Known Allergies (Unverified , 08/25/20) Objective Last 24 Hour Vital Signs Date Time Temp Pulse Resp B/P (MAP) Pulse Ox O2 Delivery O2 Flow Rate FiO2 09/02/20 16:00 98.0 84 20 145/74 (97) 96 09/02/20 16:00 87 09/02/20 12:00 97.7 71 20 139/63 (88) 98 09/02/20 12:00 87 09/02/20 09:00 Non-Rebreather 15.0 09/02/20 08:17 81 119/60 09/02/20 08:00 86 09/02/20 08:00 97.9 87 22 145/66 (92) 99 09/02/20 04:00 97.7 63 20 156/64 (94) 100 09/02/20 04:00 71 09/02/20 00:00 97.9 68 20 146/79 (101) 100 09/02/20 00:00 68 09/01/20 21:42 75 122/61 09/01/20 21:00 Non-Rebreather 15.0 09/01/20 20:00 97.9 73 20 125/69 (87) 97 09/01/20 20:00 76 09/01/20 19:55 95 Non-Rebreather 15.0 100 Height (Feet): 5 Height (Inches): 7.00 Weight (Pounds): 198 General Appearance: no acute distress HEENT: normocephalic, atraumatic, anicteric Respiratory/Chest: no accessory muscle use, crackles/rales, rhonchi - bilaterally Cardiovascular: normal rate, regular rhythm, no gallop/murmur Abdomen: normal bowel sounds, soft, non tender, no organomegaly, non distended Genitourinary: other - no pritchett Extremities: no cyanosis Skin: no rash Neurologic/Psychiatric: safety companion II-XII grossly normal, alert, responsive Lymphatic: no neck adenopathy Musculoskeletal: no effusion Chest x-ray - 08/29/20 - Procedure: XRAY Chest 1v Indication: Shortness of breath Technique: One view of the chest Comparison: 08/25/2020 Findings: Bilateral infiltrates in a peribronchovascular distribution are unchanged, allowing for differences in exposure technique. The heart is enlarged. Findings are unchanged Impression: Unchanged, over 4 days, findings as above. Chest x-ray - 09/02/20: FINDINGS: Lungs: No significant interval change in bilateral pulmonary opacities, concerning for pneumonia. Pleural space: Unremarkable. The costophrenic angles are sharp. No visible pneumothorax. Heart: Unremarkable. No cardiomegaly. Mediastinum: Unremarkable. Bones/joints: Unremarkable. Tubes, lines and devices: Telemetry leads overlie the thorax. IMPRESSION: No significant interval change in bilateral pulmonary opacities, concerning for pneumonia. Microbiology Date/Time Source Procedure Growth Status 08/25/20 11:30 Nasopharynx SARS-CoV-2 RdRp Gene Assay - Final Complete 08/25/20 11:30 Blood Blood Culture - Final NO GROWTH AFTER 5 DAYS Complete Laboratory Tests Test 09/01/20 20:05 09/02/20 03:30 09/02/20 05:31 09/02/20 08:15 POC Whole Blood Glucose 354 MG/DL (74-106) H 106 MG/DL (74-106) 207 MG/DL (74-106) H White Blood Count 11.9 K/UL (4.8-10.8) H Red Blood Count 4.05 M/UL (4.70-6.10) L Hemoglobin 12.4 G/DL (14.2-18.0) L Hematocrit 37.1 % (42.0-52.0) L Mean Corpuscular Volume 92 FL (80-99) Mean Corpuscular Hemoglobin 30.6 PG (27.0-31.0) Mean Corpuscular Hemoglobin Concent 33.3 G/DL (32.0-36.0) Red Cell Distribution Width 13.2 % (11.6-14.8) Platelet Count 645 K/UL (150-450) H Mean Platelet Volume 6.9 FL (6.5-10.1) Neutrophils (%) (Auto) 78.1 % (45.0-75.0) H Lymphocytes (%) (Auto) 10.9 % (20.0-45.0) L Monocytes (%) (Auto) 9.4 % (1.0-10.0) Eosinophils (%) (Auto) 0.9 % (0.0-3.0) Basophils (%) (Auto) 0.7 % (0.0-2.0) Sodium Level 135 MMOL/L (136-145) L Potassium Level 3.6 MMOL/L (3.5-5.1) Chloride Level 101 MMOL/L (98-107) Carbon Dioxide Level 26 MMOL/L (21-32) Blood Urea Nitrogen 14 mg/dL (7-18) Creatinine 0.8 MG/DL (0.55-1.30) Estimat Glomerular Filtration Rate > 60 mL/min (>60) Glucose Level 140 MG/DL (74-106) #H Uric Acid 2.2 MG/DL (2.6-7.2) L Calcium Level 8.6 MG/DL (8.5-10.1) Phosphorus Level 4.0 MG/DL (2.5-4.9) Magnesium Level 1.9 MG/DL (1.8-2.4) Total Bilirubin 0.4 MG/DL (0.2-1.0) Aspartate Amino Transf (AST/SGOT) 34 U/L (15-37) Alanine Aminotransferase (ALT/SGPT) 77 U/L (12-78) Alkaline Phosphatase 105 U/L (46-116) C-Reactive Protein, Quantitative 11.1 mg/dL (0.00-0.90) H Total Protein 6.7 G/DL (6.4-8.2) Albumin 1.9 G/DL (3.4-5.0) L Globulin 4.8 g/dL Albumin/Globulin Ratio 0.4 (1.0-2.7) L Test 09/02/20 11:19 POC Whole Blood Glucose 282 MG/DL (74-106) H Current Medications Medications (Trade) Dose Ordered Sig/Orion Route PRN Reason Start Time Stop Time Status Last Admin Dose Admin Acetaminophen (Tylenol) 1,000 mg Q6H PRN ORAL Mild Pain (Pain Scale 1-3) 08/28/20 08:45 09/27/20 08:44 08/28/20 12:14 Albuterol Sulfate (Proventil MDI) 2 puff Q4H PRN INH Shortness of Breath 08/26/20 11:30 11/24/20 11:29 08/28/20 06:02 Dexamethasone Sodium Phosphate (Decadron 10mg/ ml Inj) 6 mg DAILY IV 08/26/20 11:00 09/03/20 09:01 09/02/20 08:08 Dextrose (Dextrose 50%) 25 ml Q30M PRN IV Hypoglycemia 08/25/20 20:00 11/23/20 19:59 Dextrose (Dextrose 50%) 50 ml Q30M PRN IV Hypoglycemia 08/25/20 20:00 11/23/20 19:59 Docusate Sodium (Colace) 100 mg TWICE A DAY ORAL 08/29/20 18:00 09/28/20 17:59 09/02/20 18:47 Enoxaparin Sodium (Lovenox) 40 mg DAILY SUBQ 08/26/20 09:00 11/24/20 08:59 09/02/20 08:11 Insulin Aspart (NovoLOG) BEFORE MEALS AND HS SUBQ 08/25/20 21:00 11/23/20 20:59 09/02/20 17:10 Insulin Aspart (NovoLOG) 15 units BEFORE MEALS SUBQ 09/02/20 16:30 11/28/20 06:29 09/02/20 17:12 Insulin Detemir (Levemir) 20 units Q12HR SUBQ 08/30/20 09:00 11/25/20 09:29 09/02/20 08:16 Magnesium Oxide (Mag-Ox 400mg) 400 mg THREE TIMES A DAY ORAL 09/01/20 13:00 10/01/20 12:59 09/02/20 18:47 Metoprolol Tartrate (Lopressor) 75 mg Q12HR ORAL 08/30/20 21:00 11/28/20 20:59 09/02/20 08:17 Pantoprazole (Protonix) 40 mg DAILY ORAL 08/29/20 12:15 09/28/20 12:14 09/02/20 08:09 Phosphorus (Phospha 250 Neutral) 500 mg THREE TIMES A DAY ORAL 09/01/20 13:00 10/01/20 12:59 09/02/20 18:47 Prateek Dee MD Sep 02, 2020 19:06
[2020-09-02 20:00] VITALS: BP 150/81
[2020-09-03] VITALS: BP 139/78
[2020-09-03 04:00] VITALS: BP 157/81
[2020-09-03] MEDS: NovoLOG Insulin Flexpen SUBQ SCH ×7 (06:37→20:25)
[2020-09-03 08:00] VITALS: BP 156/77
[2020-09-03] MEDS: Enoxaparin 40mg Inj SUBQ SCH (08:16)
[2020-09-03] MEDS: Levemir Flexpen SUBQ SCH ×3 (08:17→20:23)
[2020-09-03] MEDS: Phospha 250 Neutral tab ORAL SCH ×3 (08:18→17:39)
[2020-09-03] MEDS: dexAMETHasone 10mg/ml Inj IV SCH (08:18)
[2020-09-03] MEDS: Docusate 100mg cap ORAL SCH ×2 (08:19→17:39)
[2020-09-03] MEDS: Magnesium Oxide 400mg tab ORAL SCH ×3 (08:19→17:39)
--- NOTE | 2020-09-03 08:23 | General Progress Note ---
Subjective Allergies: Coded Allergies: No Known Allergies (Unverified , 08/25/20) All Systems: reviewed and negative except above Subjective events noted interval notes reviewed glucose values are elevated Item Value Date Time Bedside Blood Glucose 316 mg/dl H 09/03/20 0638 Bedside Blood Glucose 249 mg/dl H 09/02/20 2228 Bedside Blood Glucose 398 mg/dl H 09/02/20 1712 Bedside Blood Glucose 282 mg/dl H 09/02/20 1137 Bedside Blood Glucose 207 mg/dl H 09/02/20 0816 Objective Last 24 Hour Vital Signs Date Time Temp Pulse Resp B/P (MAP) Pulse Ox O2 Delivery O2 Flow Rate FiO2 09/03/20 04:00 75 09/03/20 04:00 97.0 84 19 157/81 (106) 96 09/03/20 00:00 70 09/03/20 00:00 98.0 82 21 139/78 (98) 96 09/02/20 21:00 Non-Rebreather 15.0 09/02/20 20:53 74 150/81 09/02/20 20:00 97.8 74 19 150/81 (104) 96 09/02/20 20:00 73 09/02/20 16:00 98.0 84 20 145/74 (97) 96 09/02/20 16:00 87 09/02/20 12:00 97.7 71 20 139/63 (88) 98 09/02/20 12:00 87 09/02/20 09:00 Non-Rebreather 15.0 Intake and Output 09/02/20 09/03/20 19:00 07:00 Intake Total 850 ml 500 ml Output Total 800 ml 950 ml Balance 50 ml -450 ml Intake Oral 850 ml 500 ml Output Urine Total 800 ml 950 ml # Voids 3 Laboratory Tests 09/02/20 11:19: POC Whole Blood Glucose 282H 09/03/20 05:48: POC Whole Blood Glucose 316H Height (Feet): 5 Height (Inches): 7.00 Weight (Pounds): 198 Objective Current Medications Medications (Trade) Dose Ordered Sig/Orion Route PRN Reason Start Time Stop Time Status Last Admin Dose Admin Acetaminophen (Tylenol) 1,000 mg Q6H PRN ORAL Mild Pain (Pain Scale 1-3) 08/28/20 08:45 09/27/20 08:44 08/28/20 12:14 Albuterol Sulfate (Proventil MDI) 2 puff Q4H PRN INH Shortness of Breath 08/26/20 11:30 11/24/20 11:29 08/28/20 06:02 Dexamethasone Sodium Phosphate (Decadron 10mg/ ml Inj) 6 mg DAILY IV 08/26/20 11:00 09/03/20 09:01 09/02/20 08:08 Dextrose (Dextrose 50%) 25 ml Q30M PRN IV Hypoglycemia 08/25/20 20:00 11/23/20 19:59 Dextrose (Dextrose 50%) 50 ml Q30M PRN IV Hypoglycemia 08/25/20 20:00 11/23/20 19:59 Docusate Sodium (Colace) 100 mg TWICE A DAY ORAL 08/29/20 18:00 09/28/20 17:59 09/02/20 18:47 Enoxaparin Sodium (Lovenox) 40 mg DAILY SUBQ 08/26/20 09:00 11/24/20 08:59 09/02/20 08:11 Insulin Aspart (NovoLOG) BEFORE MEALS AND HS SUBQ 08/25/20 21:00 11/23/20 20:59 09/03/20 06:37 Insulin Aspart (NovoLOG) 15 units BEFORE MEALS SUBQ 09/02/20 16:30 11/28/20 06:29 09/03/20 06:38 Insulin Detemir (Levemir) 20 units Q12HR SUBQ 08/30/20 09:00 11/25/20 09:29 09/02/20 22:27 Magnesium Oxide (Mag-Ox 400mg) 400 mg THREE TIMES A DAY ORAL 09/01/20 13:00 10/01/20 12:59 09/02/20 18:47 Metoprolol Tartrate (Lopressor) 75 mg Q12HR ORAL 08/30/20 21:00 11/28/20 20:59 09/02/20 20:53 Pantoprazole (Protonix) 40 mg DAILY ORAL 08/29/20 12:15 09/28/20 12:14 09/02/20 08:09 Phosphorus (Phospha 250 Neutral) 500 mg THREE TIMES A DAY ORAL 09/01/20 13:00 10/01/20 12:59 09/02/20 18:47 Assessment/Plan Problem List: (1) COVID-19 ICD Codes: U07.1 - COVID-19 SNOMED: 848116077 (2) Pneumonia ICD Codes: J18.9 - Pneumonia, unspecified organism SNOMED: 989645771 (3) DMII (diabetes mellitus, type 2) ICD Codes: E11.9 - Type 2 diabetes mellitus without complications SNOMED: 81406734 Assessment/Plan: increase Levemir to 25 units bid increase Novolog to 18 units ac tid continue Novolog sliding scale ac hs Jasvir Knutson MD Sep 03, 2020 08:23
[2020-09-03] MEDS ORDERED: Tubing IV Secondary IV ONE (09:48)
[2020-09-03] MEDS ORDERED: NS 275ml ONE (09:48)
--- NOTE | 2020-09-03 10:46 | Pulmonology Progress Note ---
Subjective ROS Limited/Unobtainable: No Constitutional: Reports: other - sob, on NR; Denies: fever Gastrointestinal/Abdominal: Denies: nausea, vomiting, diarrhea Psychiatric: Denies: depression Skin: Denies: rash Musculoskeletal: Denies: pain Allergies: Coded Allergies: No Known Allergies (Unverified , 08/25/20) All Systems: reviewed and negative except above Subjective still on NRM ,unable to wean completely but ambulates to the bathroom and eats without NRM occasional dry cough no fevers mild leukocytosis denies CP completed Remdesivir , completing steroids today BS and BP better Objective Last 24 Hour Vital Signs Date Time Temp Pulse Resp B/P (MAP) Pulse Ox O2 Delivery O2 Flow Rate FiO2 09/03/20 08:19 95 155/77 09/03/20 04:00 75 09/03/20 04:00 97.0 84 19 157/81 (106) 96 09/03/20 00:00 70 09/03/20 00:00 98.0 82 21 139/78 (98) 96 09/02/20 21:00 Non-Rebreather 15.0 09/02/20 20:53 74 150/81 09/02/20 20:00 97.8 74 19 150/81 (104) 96 09/02/20 20:00 73 09/02/20 16:00 98.0 84 20 145/74 (97) 96 09/02/20 16:00 87 09/02/20 12:00 97.7 71 20 139/63 (88) 98 09/02/20 12:00 87 Intake and Output 09/02/20 09/03/20 19:00 07:00 Intake Total 850 ml 500 ml Output Total 800 ml 950 ml Balance 50 ml -450 ml Intake Oral 850 ml 500 ml Output Urine Total 800 ml 950 ml # Voids 3 Objective General Appearance: no apparent distress Lines, tubes and drains: peripheral HEENT: normocephalic, atraumatic, anicteric, mucous membranes moist, PERRL, on NRM Neck: supple Respiratory/Chest: chest wall non-tender, BS decreased, Cardiac: normal rate, regular rhythm - SR Abdomen: normal bowel sounds, non tender, soft Extremities: normal range of motion, no calf tenderness, normal capillary refill Skin Exam: warm/dry 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, no motor/sensory deficits, alert, oriented x 3, responsive Musculoskeletal: normal muscle bulk Laboratory Tests 09/02/20 11:19: POC Whole Blood Glucose 282H 09/03/20 05:48: POC Whole Blood Glucose 316H Current Medications Medications (Trade) Dose Ordered Sig/Orion Route PRN Reason Start Time Stop Time Status Last Admin Dose Admin Acetaminophen (Tylenol) 1,000 mg Q6H PRN ORAL Mild Pain (Pain Scale 1-3) 08/28/20 08:45 09/27/20 08:44 08/28/20 12:14 Albuterol Sulfate (Proventil MDI) 2 puff Q4H PRN INH Shortness of Breath 08/26/20 11:30 11/24/20 11:29 08/28/20 06:02 Dextrose (Dextrose 50%) 25 ml Q30M PRN IV Hypoglycemia 08/25/20 20:00 11/23/20 19:59 Dextrose (Dextrose 50%) 50 ml Q30M PRN IV Hypoglycemia 08/25/20 20:00 11/23/20 19:59 Docusate Sodium (Colace) 100 mg TWICE A DAY ORAL 08/29/20 18:00 09/28/20 17:59 09/02/20 18:47 Enoxaparin Sodium (Lovenox) 40 mg DAILY SUBQ 08/26/20 09:00 11/24/20 08:59 09/03/20 08:16 Insulin Aspart (NovoLOG) BEFORE MEALS AND HS SUBQ 08/25/20 21:00 11/23/20 20:59 09/03/20 06:37 Insulin Aspart (NovoLOG) 18 units BEFORE MEALS SUBQ 09/03/20 11:30 11/28/20 06:29 Insulin Detemir (Levemir) 25 units Q12HR SUBQ 09/03/20 09:00 11/25/20 09:29 Magnesium Oxide (Mag-Ox 400mg) 400 mg THREE TIMES A DAY ORAL 09/01/20 13:00 10/01/20 12:59 09/03/20 08:19 Metoprolol Tartrate (Lopressor) 75 mg Q12HR ORAL 08/30/20 21:00 11/28/20 20:59 09/03/20 08:19 Pantoprazole (Protonix) 40 mg DAILY ORAL 08/29/20 12:15 09/28/20 12:14 09/03/20 08:19 Phosphorus (Phospha 250 Neutral) 500 mg THREE TIMES A DAY ORAL 09/01/20 13:00 10/01/20 12:59 09/03/20 08:18 Assessment/Plan Assessment/Plan ASSESSMENT COVID 19 pneumonia Acute hypoxemic resp failure due to COVID 19 PNA Hypokalemia /persistent Hypo Mg DM with hyperglycemia/DMOOC HTN PLAN OF CARE tele Date of sx onset: 1 week prior to ED presentation on 08/25 Positive test: 08/25 rapid COVID 19 + O2 NRM HFA s/p REM x 5 days ( 08/25-08/29) s/p Dex x 10 days ( 08/25-09/03) DVT PPX: Lovenox D dimer -0.97 Venous Duplex BLE NGT trend CRP-42-11.1 prone position encouraged as tolerated s/p abx as per ID recs CXR 09/03 unchanged BL pulm opacities, concerning for PNA monitor volumes and renal function fup with consultants recs FC discuss GOC, diabetic diet and diabetic teaching [id number] not at goal BS as per endo recs, BS better BP management, now better with new increased dose of Metoprolol supportive care still hypoxic case discussed and evaluated by supervising physician Zoë Martinez NP Sep 03, 2020 10:46 Carmelo Combs MD Sep 03, 2020 19:45
[2020-09-03 12:00] VITALS: BP 143/83
--- NOTE | 2020-09-03 15:26 | Nephrology Progress Note ---
Assessment/Plan Problem List: (1) Dehydration (2) Electrolyte imbalance (3) COVID-19 (4) Pneumonia (5) Diabetic nephropathy (6) DMII (diabetes mellitus, type 2) Assessment Low sodium Low potassium Low magnesium Diabetes mellitus, hyperglycemia 4+ proteinuria, hypoalbuminemia COVID-19 pneumonia, hypoxia Hypertension Plan September 03: No labs drawn today. Will check lab tomorrow. Remains stable from renal standpoint of view. Medication list reviewed. September 02: Labs reviewed. Renal parameters are stable. Continue per consultants. August 31: Labs reviewed. Abnormal electrolytes addressed. Continue to monitor electrolytes. Per consultants. August 30: Labs reviewed. Sodium 133. Potassium and magnesium level are within normal limits. Continue per consultants. Previously: Mag, potassium supplement Monitor electrolytes and chemistries Check vitamin D level 24-hour urine collection for total protein Continue per consultants Subjective Constitutional: Reports: malaise Objective Objective Last 24 Hour Vital Signs Date Time Temp Pulse Resp B/P (MAP) Pulse Ox O2 Delivery O2 Flow Rate FiO2 09/03/20 12:00 76 09/03/20 12:00 97.9 85 22 143/83 (103) 96 09/03/20 09:00 Non-Rebreather 15.0 09/03/20 08:19 95 155/77 09/03/20 08:00 97 09/03/20 08:00 97.9 102 24 156/77 (103) 96 09/03/20 04:00 75 09/03/20 04:00 97.0 84 19 157/81 (106) 96 09/03/20 00:00 70 09/03/20 00:00 98.0 82 21 139/78 (98) 96 09/02/20 21:00 Non-Rebreather 15.0 09/02/20 20:53 74 150/81 09/02/20 20:00 97.8 74 19 150/81 (104) 96 09/02/20 20:00 73 09/02/20 16:00 98.0 84 20 145/74 (97) 96 09/02/20 16:00 87 Intake and Output 09/02/20 09/03/20 19:00 07:00 Intake Total 850 ml 500 ml Output Total 800 ml 950 ml Balance 50 ml -450 ml Intake Oral 850 ml 500 ml Output Urine Total 800 ml 950 ml # Voids 3 Laboratory Tests 09/03/20 05:48: POC Whole Blood Glucose 316H 09/03/20 12:23: POC Whole Blood Glucose 278H Height (Feet): 5 Height (Inches): 7.00 Weight (Pounds): 198 General Appearance: no apparent distress EENT: other - On nonrebreather mask Cardiovascular: tachycardia Respiratory/Chest: decreased breath sounds Abdomen: distended Tod Orona MD Sep 03, 2020 15:26
[2020-09-03 16:00] VITALS: BP 119/63
[2020-09-03 20:00] VITALS: BP 133/70
[2020-09-04] VITALS: BP 150/82
[2020-09-04 04:00] VITALS: BP 134/82
[2020-09-04] MEDS: NovoLOG Insulin Flexpen SUBQ SCH ×7 (06:00→21:01)
[2020-09-04 08:00] VITALS: BP 158/79
[2020-09-04] MEDS: Docusate 100mg cap ORAL SCH ×2 (08:21→17:14)
[2020-09-04] MEDS: Magnesium Oxide 400mg tab ORAL SCH ×3 (08:22→17:14)
[2020-09-04] MEDS: Phospha 250 Neutral tab ORAL SCH ×2 (08:22→12:27)
[2020-09-04] MEDS: Enoxaparin 40mg Inj SUBQ SCH (08:25)
[2020-09-04] MEDS: Levemir Flexpen SUBQ SCH (08:30)
--- NOTE | 2020-09-04 09:57 | General Progress Note ---
Subjective ROS Limited/Unobtainable: Yes Allergies: Coded Allergies: No Known Allergies (Unverified , 08/25/20) Subjective events noted interval notes reviewed glucose values improved after yesterday's insulin dose adjustments no longer on dexamethasone Item Value Date Time Bedside Blood Glucose 187 mg/dl H 09/04/20 0830 Bedside Blood Glucose 187 mg/dl H 09/04/20 0603 Bedside Blood Glucose 297 mg/dl H 09/03/20 2100 Bedside Blood Glucose 301 mg/dl H 09/03/20 1702 Bedside Blood Glucose 278 mg/dl H 09/03/20 1227 Bedside Blood Glucose 316 mg/dl H 09/03/20 0900 Bedside Blood Glucose 316 mg/dl H 09/03/20 0638 Objective Last 24 Hour Vital Signs Date Time Temp Pulse Resp B/P (MAP) Pulse Ox O2 Delivery O2 Flow Rate FiO2 09/04/20 08:23 71 140/77 09/04/20 04:00 70 09/04/20 04:00 97.4 78 19 134/82 (99) 100 09/04/20 00:00 93 09/04/20 00:00 98.4 70 19 150/82 (104) 100 09/04/20 00:00 66 09/03/20 21:00 Non-Rebreather 15.0 09/03/20 20:22 75 133/70 09/03/20 20:00 98.2 75 20 133/70 (91) 100 09/03/20 16:00 97.9 72 24 119/63 (81) 98 09/03/20 16:00 72 09/03/20 12:00 76 09/03/20 12:00 97.9 85 22 143/83 (103) 96 Intake and Output 09/03/20 09/04/20 19:00 07:00 Intake Total 424 ml 360 ml Output Total 600 ml 500 ml Balance -176 ml -140 ml Intake Oral 424 ml 360 ml Output Urine Total 600 ml 500 ml # Voids 2 1 Laboratory Tests 09/03/20 12:23: POC Whole Blood Glucose 278H 09/03/20 16:51: POC Whole Blood Glucose 301H 09/03/20 20:19: D-Dimer 1.77H, C-Reactive Protein, Quantitative 9.5H, Pro-B-Type Natriuretic Peptide 182H Height (Feet): 5 Height (Inches): 7.00 Weight (Pounds): 198 Objective Current Medications Medications (Trade) Dose Ordered Sig/Orion Route PRN Reason Start Time Stop Time Status Last Admin Dose Admin Acetaminophen (Tylenol) 1,000 mg Q6H PRN ORAL Mild Pain (Pain Scale 1-3) 08/28/20 08:45 09/27/20 08:44 08/28/20 12:14 Albuterol Sulfate (Proventil MDI) 2 puff Q4H PRN INH Shortness of Breath 08/26/20 11:30 11/24/20 11:29 08/28/20 06:02 Dextrose (Dextrose 50%) 25 ml Q30M PRN IV Hypoglycemia 08/25/20 20:00 11/23/20 19:59 Dextrose (Dextrose 50%) 50 ml Q30M PRN IV Hypoglycemia 08/25/20 20:00 11/23/20 19:59 Docusate Sodium (Colace) 100 mg TWICE A DAY ORAL 08/29/20 18:00 09/28/20 17:59 09/04/20 08:21 Enoxaparin Sodium (Lovenox) 40 mg DAILY SUBQ 08/26/20 09:00 11/24/20 08:59 09/04/20 08:25 Insulin Aspart (NovoLOG) BEFORE MEALS AND HS SUBQ 08/25/20 21:00 11/23/20 20:59 09/04/20 06:00 Insulin Aspart (NovoLOG) 18 units BEFORE MEALS SUBQ 09/03/20 11:30 11/28/20 06:29 09/04/20 06:03 Insulin Detemir (Levemir) 25 units Q12HR SUBQ 09/03/20 09:00 11/25/20 09:29 09/04/20 08:30 Magnesium Oxide (Mag-Ox 400mg) 400 mg THREE TIMES A DAY ORAL 09/01/20 13:00 10/01/20 12:59 09/04/20 08:22 Metoprolol Tartrate (Lopressor) 75 mg Q12HR ORAL 08/30/20 21:00 11/28/20 20:59 09/04/20 08:23 Pantoprazole (Protonix) 40 mg DAILY ORAL 08/29/20 12:15 09/28/20 12:14 09/04/20 08:22 Phosphorus (Phospha 250 Neutral) 500 mg THREE TIMES A DAY ORAL 09/01/20 13:00 10/01/20 12:59 09/04/20 08:22 Assessment/Plan Problem List: (1) COVID-19 ICD Codes: U07.1 - COVID-19 SNOMED: 240772111 (2) Pneumonia ICD Codes: J18.9 - Pneumonia, unspecified organism SNOMED: 322746952 (3) DMII (diabetes mellitus, type 2) ICD Codes: E11.9 - Type 2 diabetes mellitus without complications SNOMED: 21532104 Assessment/Plan: lower insulin requirement is expected since he is not longer on dexamethasone reduce Levemir to 18 units bid reduce Novolog to 10 units ac tid continue Novolog sliding scale ac hs hypoglycemia protocol in order Jasvir Knutson MD Sep 04, 2020 09:57
[2020-09-04 10:26] LABS: BASOPHILS % (AUTO) 2.2 % (0.0-2.0); EOSINOPHILS % (AUTO) 0.6 % (0.0-3.0); HEMATOCRIT 37.2 % (42.0-52.0); HEMOGLOBIN 12.5 G/DL (14.2-18.0); LYMPHOCYTES % (AUTO) 9.6 % (20.0-45.0); MEAN CORPUSCULAR VOLUME 90 FL (80-99); NEUTROPHILS % (AUTO) 78.7 % (45.0-75.0); PLATELET COUNT 592 K/UL (150-450); RED BLOOD COUNT 4.14 M/UL (4.70-6.10); RED CELL DISTRIBUTION WIDTH 14.7 % (11.6-14.8); WHITE BLOOD COUNT 14.7 K/UL (4.8-10.8)
[2020-09-04 10:55] LABS: PHOSPHORUS 3.6 MG/DL (2.5-4.9)
--- NOTE | 2020-09-04 11:01 | Pulmonology Progress Note ---
Subjective Constitutional: Denies: fever Gastrointestinal/Abdominal: Denies: nausea, vomiting, diarrhea Psychiatric: Denies: depression Skin: Denies: rash Musculoskeletal: Denies: pain Allergies: Coded Allergies: No Known Allergies (Unverified , 08/25/20) Subjective now on RA occasional dry cough no fevers, + leukocytosis , possibly due to steroids denies CP completed Remdesivir and steroids BS and BP better Objective Last 24 Hour Vital Signs Date Time Temp Pulse Resp B/P (MAP) Pulse Ox O2 Delivery O2 Flow Rate FiO2 09/04/20 09:00 Room Air 09/04/20 08:23 71 140/77 09/04/20 08:00 97.7 107 22 158/79 (105) 100 09/04/20 08:00 90 09/04/20 04:00 70 09/04/20 04:00 97.4 78 19 134/82 (99) 100 09/04/20 00:00 93 09/04/20 00:00 98.4 70 19 150/82 (104) 100 09/04/20 00:00 66 09/03/20 21:00 Non-Rebreather 15.0 09/03/20 20:22 75 133/70 09/03/20 20:00 98.2 75 20 133/70 (91) 100 09/03/20 16:00 97.9 72 24 119/63 (81) 98 09/03/20 16:00 72 09/03/20 12:00 76 09/03/20 12:00 97.9 85 22 143/83 (103) 96 Intake and Output 09/03/20 09/04/20 19:00 07:00 Intake Total 424 ml 360 ml Output Total 600 ml 500 ml Balance -176 ml -140 ml Intake Oral 424 ml 360 ml Output Urine Total 600 ml 500 ml # Voids 2 1 Objective General Appearance: no apparent distress Lines, tubes and drains: peripheral HEENT: normocephalic, atraumatic, anicteric, mucous membranes moist, PERRL, on RA Neck: supple Respiratory/Chest: chest wall non-tender, BS decreased, Cardiac: normal rate, regular rhythm - SR Abdomen: normal bowel sounds, non tender, soft Extremities: normal range of motion, no calf tenderness, normal capillary refill Skin Exam: warm/dry 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, no motor/sensory deficits, alert, oriented x 3, responsive Musculoskeletal: normal muscle bulk Laboratory Tests 09/03/20 12:23: POC Whole Blood Glucose 278H 09/03/20 16:51: POC Whole Blood Glucose 301H 09/03/20 20:19: D-Dimer 1.77H, C-Reactive Protein, Quantitative 9.5H, Pro-B-Type Natriuretic Peptide 182H 09/04/20 09:38: C-Reactive Protein, Quantitative [Pending], White Blood Count 14.7H, Red Blood Count 4.14L, Hemoglobin 12.5L, Hematocrit 37.2L, Mean Corpuscular Volume 90, Mean Corpuscular Hemoglobin 30.2, Mean Corpuscular Hemoglobin Concent 33.6, Red Cell Distribution Width 14.7, Platelet Count 592H, Mean Platelet Volume 6.3L, Neutrophils (%) (Auto) 78.7H, Lymphocytes (%) (Auto) 9.6L, Monocytes (%) (Auto) 9.0, Eosinophils (%) (Auto) 0.6, Basophils (%) (Auto) 2.2H, Sodium Level [Pending], Potassium Level [Pending], Chloride Level [Pending], Carbon Dioxide Level [Pending], Blood Urea Nitrogen [Pending], Creatinine [Pending], Estimat Glomerular Filtration Rate [Pending], Glucose Level [Pending], Calcium Level [Pending], Phosphorus Level [Pending], Magnesium Level [Pending], Total Bilirubin [Pending], Aspartate Amino Transf (AST/SGOT) [Pending], Alanine Aminotransferase (ALT/SGPT) [Pending], Alkaline Phosphatase [Pending], Total Protein [Pending], Albumin [Pending], Globulin [Pending] Current Medications Medications (Trade) Dose Ordered Sig/Orion Route PRN Reason Start Time Stop Time Status Last Admin Dose Admin Acetaminophen (Tylenol) 1,000 mg Q6H PRN ORAL Mild Pain (Pain Scale 1-3) 08/28/20 08:45 09/27/20 08:44 08/28/20 12:14 Albuterol Sulfate (Proventil MDI) 2 puff Q4H PRN INH Shortness of Breath 08/26/20 11:30 11/24/20 11:29 08/28/20 06:02 Dextrose (Dextrose 50%) 25 ml Q30M PRN IV Hypoglycemia 08/25/20 20:00 11/23/20 19:59 Dextrose (Dextrose 50%) 50 ml Q30M PRN IV Hypoglycemia 08/25/20 20:00 11/23/20 19:59 Docusate Sodium (Colace) 100 mg TWICE A DAY ORAL 08/29/20 18:00 09/28/20 17:59 09/04/20 08:21 Enoxaparin Sodium (Lovenox) 40 mg DAILY SUBQ 08/26/20 09:00 11/24/20 08:59 09/04/20 08:25 Insulin Aspart (NovoLOG) BEFORE MEALS AND HS SUBQ 08/25/20 21:00 11/23/20 20:59 09/04/20 06:00 Insulin Aspart (NovoLOG) 10 units BEFORE MEALS SUBQ 09/04/20 11:30 11/28/20 06:29 Insulin Detemir (Levemir) 18 units Q12HR SUBQ 09/04/20 21:00 11/25/20 09:29 Magnesium Oxide (Mag-Ox 400mg) 400 mg THREE TIMES A DAY ORAL 09/01/20 13:00 10/01/20 12:59 09/04/20 08:22 Metoprolol Tartrate (Lopressor) 75 mg Q12HR ORAL 08/30/20 21:00 11/28/20 20:59 09/04/20 08:23 Pantoprazole (Protonix) 40 mg DAILY ORAL 08/29/20 12:15 09/28/20 12:14 09/04/20 08:22 Phosphorus (Phospha 250 Neutral) 500 mg THREE TIMES A DAY ORAL 09/01/20 13:00 10/01/20 12:59 09/04/20 08:22 Assessment/Plan Assessment/Plan ASSESSMENT COVID 19 pneumonia Acute hypoxemic resp failure due to COVID 19 PNA-resolved Hypokalemia /persistent Hypo Mg DM with hyperglycemia/DMOOC HTN PLAN OF CARE tele Date of sx onset: 1 week prior to ED presentation on 08/25 Positive test: 08/25 rapid COVID 19 + O2 RA HFA s/p REM x 5 days ( 08/25-08/29) s/p Dex x 10 days ( 08/25-09/03) DVT PPX: Lovenox D dimer -0.97 Venous Duplex BLE NGT trend CRP- 42-11.1 prone position encouraged as tolerated s/p abx as per ID recs CXR 1/2 unchanged BL pulm opacities, concerning for PNA monitor volumes and renal function fup with consultants recs FC continue monitor resp status, ( was on NRM for days) recheck CBC in am ( leuk probably due to steroids) CT chest, ECHO diabetic diet and diabetic teaching [id number] not at goal BS as per endo recs, BS better - scripts on dc for new regimen BP management, now better with new increased dose of Metoprolol supportive care dc plan for am 09/06 case discussed and evaluated by supervising physician Zoë Martinez NP Sep 04, 2020 11:01 Carmelo Combs MD Sep 04, 2020 20:32
[2020-09-04 11:18] LABS: ALANINE AMINOTRANSFERASE 74 U/L (12-78); ALBUMIN/GLOBULIN RATIO 0.4 (1.0-2.7); ALKALINE PHOSPHATASE 111 U/L (46-116); ANION GAP 7 mmol/L (5-15); ASPARTATE AMINO TRANSFERASE 31 U/L (15-37); BILIRUBIN,TOTAL 0.4 MG/DL (0.2-1.0); BLOOD UREA NITROGEN 13 mg/dL (7-18); CALCIUM 9.3 MG/DL (8.5-10.1); CARBON DIOXIDE 28 MMOL/L (21-32); CHLORIDE 98 MMOL/L (98-107); CREATININE 0.8 MG/DL (0.55-1.30); POTASSIUM 3.2 MMOL/L (3.5-5.1); SODIUM 133 MMOL/L (136-145)
[2020-09-04 12:00] VITALS: BP 154/80
--- NOTE | 2020-09-04 13:30 | Nephrology Progress Note ---
Assessment/Plan Problem List: (1) Dehydration (2) Electrolyte imbalance (3) COVID-19 (4) Pneumonia (5) Diabetic nephropathy (6) DMII (diabetes mellitus, type 2) Assessment Low sodium Low potassium Low magnesium Diabetes mellitus, hyperglycemia 4+ proteinuria, hypoalbuminemia COVID-19 pneumonia, hypoxia Hypertension Plan September 04: Labs reviewed. Low sodium low magnesium and low phosphorus addressed. Continue rest. September 03: No labs drawn today. Will check lab tomorrow. Remains stable from renal standpoint of view. Medication list reviewed. September 02: Labs reviewed. Renal parameters are stable. Continue per consultants. August 31: Labs reviewed. Abnormal electrolytes addressed. Continue to monitor electrolytes. Per consultants. August 30: Labs reviewed. Sodium 133. Potassium and magnesium level are within normal limits. Continue per consultants. Previously: Mag, potassium supplement Monitor electrolytes and chemistries Check vitamin D level 24-hour urine collection for total protein Continue per consultants Subjective ROS Limited/Unobtainable: No Constitutional: Reports: malaise, weakness Objective Objective Last 24 Hour Vital Signs Date Time Temp Pulse Resp B/P (MAP) Pulse Ox O2 Delivery O2 Flow Rate FiO2 09/04/20 12:00 97.7 83 22 154/80 (104) 91 09/04/20 09:00 Room Air 09/04/20 08:23 71 140/77 09/04/20 08:00 97.7 107 22 158/79 (105) 100 09/04/20 08:00 90 09/04/20 04:00 70 09/04/20 04:00 97.4 78 19 134/82 (99) 100 09/04/20 00:00 93 09/04/20 00:00 98.4 70 19 150/82 (104) 100 09/04/20 00:00 66 09/03/20 21:00 Non-Rebreather 15.0 09/03/20 20:22 75 133/70 09/03/20 20:00 98.2 75 20 133/70 (91) 100 09/03/20 16:00 97.9 72 24 119/63 (81) 98 09/03/20 16:00 72 Intake and Output 09/03/20 09/04/20 19:00 07:00 Intake Total 424 ml 360 ml Output Total 600 ml 500 ml Balance -176 ml -140 ml Intake Oral 424 ml 360 ml Output Urine Total 600 ml 500 ml # Voids 2 1 Laboratory Tests 09/03/20 16:51: POC Whole Blood Glucose 301H 09/03/20 20:19: D-Dimer 1.77H, C-Reactive Protein, Quantitative 9.5H, Pro-B-Type Natriuretic Peptide 182H 09/04/20 09:38: C-Reactive Protein, Quantitative [Pending], White Blood Count 14.7H, Red Blood Count 4.14L, Hemoglobin 12.5L, Hematocrit 37.2L, Mean Corpuscular Volume 90, Mean Corpuscular Hemoglobin 30.2, Mean Corpuscular Hemoglobin Concent 33.6, Red Cell Distribution Width 14.7, Platelet Count 592H, Mean Platelet Volume 6.3L, Neutrophils (%) (Auto) 78.7H, Lymphocytes (%) (Auto) 9.6L, Monocytes (%) (Auto) 9.0, Eosinophils (%) (Auto) 0.6, Basophils (%) (Auto) 2.2H, Sodium Level 133L, Potassium Level 3.2L, Chloride Level 98, Carbon Dioxide Level 28, Anion Gap 7, Blood Urea Nitrogen 13, Creatinine 0.8, Estimat Glomerular Filtration Rate > 60, Glucose Level 260H, Calcium Level 9.3, Phosphorus Level 3.6, Magnesium Level 1.5L, Total Bilirubin 0.4, Aspartate Amino Transf (AST/SGOT) 31, Alanine Aminotransferase (ALT/SGPT) 74, Alkaline Phosphatase 111, Total Protein 7.0, Albumin 2.0L, Globulin 5.0, Albumin/Globulin Ratio 0.4L 09/04/20 12:04: POC Whole Blood Glucose 317H Height (Feet): 5 Height (Inches): 7.00 Weight (Pounds): 198 General Appearance: no apparent distress Cardiovascular: normal rate Respiratory/Chest: decreased breath sounds Abdomen: distended Tod Orona MD Sep 04, 2020 13:30
--- NOTE | 2020-09-04 13:38 | Diagnostic Imaging Report ---
EXAM: CT Chest Without Intravenous Contrast CLINICAL HISTORY: SOB TECHNIQUE: Axial computed tomography images of the chest without intravenous contrast. CTDI is 11.1 mGy and DLP is 445.7 mGy-cm. One or more of the following dose reduction techniques were used: automated exposure control, adjustment of the mA and/or kV according to patient size, use of iterative reconstruction technique. COMPARISON: No relevant prior studies available. FINDINGS: There are extensive bilateral airspace infiltrates, somewhat a component of interstitial thickening. These are more extensive to the right lung. Suspect multilobar pneumonia, with particular concern for coronavirus infection. No significant pleural effusion. Trace pericardial fluid. Coronary atherosclerosis and mild cardiomegaly. Aortic atherosclerosis without aneurysm. No pneumothorax. Bilateral renal cysts. Nonobstructing stone on the right. No acute fracture. IMPRESSION: Airspace and interstitial pulmonary infiltrates, right lung greater than left. Suspect multilobar pneumonia, with particular concern for coronavirus infection. Cardiomegaly and CAD. Incidental findings as above.
[2020-09-04 16:00] VITALS: BP 157/84
[2020-09-04 20:00] VITALS: BP 149/80
[2020-09-04] MEDS ORDERED: Levemir Flexpen SUBQ SCH (21:00)
--- NOTE | 2020-09-04 23:48 | Infectious Diseases Prog Note ---
Assessment/Plan Assessment/Plan ASSESSMENT AND PLAN: 1. covid-19 virus infection with pna, hypoxia leukocytosis secondary to steroids - s/p dexamethasone and remdesivir - monitor hypoxia - monitor labs, monitor leukocytosis - clinically improved, less sob 2. Diabetes. 3. Hypertension. 4. No known allergies. 5. Social history is negative. 6. Family history is noncontributory. 7. MAR was noted. 8. Case was discussed with RN. 9. Blood sugar and blood pressure treatment per primary care team. 10. Orders were noted and entered. Subjective Constitutional: Reports: fatigue, other - less sob, on RA now ; Denies: fever HEENT: Denies: congestion Respiratory: Denies: shortness of breath Cardiovascular: Denies: chest pain Gastrointestinal/Abdominal: Denies: nausea, vomiting, diarrhea Genitourinary: Reports: other - no pritchett Neurologic: Denies: headache Psychiatric: Denies: depression Skin: Denies: rash Hematologic: Denies: bleeding Musculoskeletal: Denies: pain Allergies: Coded Allergies: No Known Allergies (Unverified , 08/25/20) Objective Last 24 Hour Vital Signs Date Time Temp Pulse Resp B/P (MAP) Pulse Ox O2 Delivery O2 Flow Rate FiO2 09/04/20 21:00 Room Air 09/04/20 20:52 88 149/80 09/04/20 20:00 99 09/04/20 20:00 97.9 88 19 149/80 (103) 93 09/04/20 19:00 93 Room Air 09/04/20 16:00 85 09/04/20 16:00 97.7 90 22 157/84 (108) 93 09/04/20 12:00 77 09/04/20 12:00 97.7 83 22 154/80 (104) 91 09/04/20 09:00 Room Air 09/04/20 08:23 71 140/77 09/04/20 08:00 97.7 107 22 158/79 (105) 100 09/04/20 08:00 90 09/04/20 07:00 93 Room Air 09/04/20 04:00 70 09/04/20 04:00 97.4 78 19 134/82 (99) 100 09/04/20 00:00 93 09/04/20 00:00 98.4 70 19 150/82 (104) 100 09/04/20 00:00 66 Height (Feet): 5 Height (Inches): 7.00 Weight (Pounds): 198 General Appearance: no acute distress HEENT: normocephalic, atraumatic, anicteric, mucous membranes moist Respiratory/Chest: crackles/rales, rhonchi - bilaterally Cardiovascular: normal rate, regular rhythm, no gallop/murmur, no JVD Abdomen: normal bowel sounds, soft, non tender, no organomegaly, non distended Genitourinary: other - no prithcett Extremities: no cyanosis Skin: no rash 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 The heart is enlarged. Findings are unchanged Impression: Unchanged, over 4 days, findings as above. Chest x-ray - 09/02/20: FINDINGS: Lungs: No significant interval change in bilateral pulmonary opacities, concerning for pneumonia. Pleural space: Unremarkable. The costophrenic angles are sharp. No visible pneumothorax. Heart: Unremarkable. No cardiomegaly. Mediastinum: Unremarkable. Bones/joints: Unremarkable. Tubes, lines and devices: Telemetry leads overlie the thorax. IMPRESSION: No significant interval change in bilateral pulmonary opacities, concerning for pneumonia. Microbiology Date/Time Source Procedure Growth Status 08/25/20 11:30 Nasopharynx SARS-CoV-2 RdRp Gene Assay - Final Complete 08/25/20 11:30 Blood Blood Culture - Final NO GROWTH AFTER 5 DAYS Complete Laboratory Tests Test 09/04/20 09:38 09/04/20 12:04 White Blood Count 14.7 K/UL (4.8-10.8) H Red Blood Count 4.14 M/UL (4.70-6.10) L Hemoglobin 12.5 G/DL (14.2-18.0) L Hematocrit 37.2 % (42.0-52.0) L Mean Corpuscular Volume 90 FL (80-99) Mean Corpuscular Hemoglobin 30.2 PG (27.0-31.0) Mean Corpuscular Hemoglobin Concent 33.6 G/DL (32.0-36.0) Red Cell Distribution Width 14.7 % (11.6-14.8) Platelet Count 592 K/UL (150-450) H Mean Platelet Volume 6.3 FL (6.5-10.1) L Neutrophils (%) (Auto) 78.7 % (45.0-75.0) H Lymphocytes (%) (Auto) 9.6 % (20.0-45.0) L Monocytes (%) (Auto) 9.0 % (1.0-10.0) Eosinophils (%) (Auto) 0.6 % (0.0-3.0) Basophils (%) (Auto) 2.2 % (0.0-2.0) H Sodium Level 133 MMOL/L (136-145) L Potassium Level 3.2 MMOL/L (3.5-5.1) L Chloride Level 98 MMOL/L (98-107) Carbon Dioxide Level 28 MMOL/L (21-32) Anion Gap 7 mmol/L (5-15) Blood Urea Nitrogen 13 mg/dL (7-18) Creatinine 0.8 MG/DL (0.55-1.30) Estimat Glomerular Filtration Rate > 60 mL/min (>60) Glucose Level 260 MG/DL (74-106) H Calcium Level 9.3 MG/DL (8.5-10.1) Phosphorus Level 3.6 MG/DL (2.5-4.9) Magnesium Level 1.5 MG/DL (1.8-2.4) L Total Bilirubin 0.4 MG/DL (0.2-1.0) Aspartate Amino Transf (AST/SGOT) 31 U/L (15-37) Alanine Aminotransferase (ALT/SGPT) 74 U/L (12-78) Alkaline Phosphatase 111 U/L (46-116) C-Reactive Protein, Quantitative Pending Total Protein 7.0 G/DL (6.4-8.2) Albumin 2.0 G/DL (3.4-5.0) L Globulin 5.0 g/dL Albumin/Globulin Ratio 0.4 (1.0-2.7) L POC Whole Blood Glucose 317 MG/DL (74-106) H Current Medications Medications (Trade) Dose Ordered Sig/Orion Route PRN Reason Start Time Stop Time Status Last Admin Dose Admin Acetaminophen (Tylenol) 1,000 mg Q6H PRN ORAL Mild Pain (Pain Scale 1-3) 08/28/20 08:45 09/27/20 08:44 08/28/20 12:14 Albuterol Sulfate (Proventil MDI) 2 puff Q4H PRN INH Shortness of Breath 08/26/20 11:30 11/24/20 11:29 08/28/20 06:02 Dextrose (Dextrose 50%) 25 ml Q30M PRN IV Hypoglycemia 08/25/20 20:00 11/23/20 19:59 Dextrose (Dextrose 50%) 50 ml Q30M PRN IV Hypoglycemia 08/25/20 20:00 11/23/20 19:59 Docusate Sodium (Colace) 100 mg TWICE A DAY ORAL 08/29/20 18:00 09/28/20 17:59 09/04/20 17:14 Enoxaparin Sodium (Lovenox) 40 mg DAILY SUBQ 08/26/20 09:00 11/24/20 08:59 09/04/20 08:25 Insulin Aspart (NovoLOG) BEFORE MEALS AND HS SUBQ 08/25/20 21:00 11/23/20 20:59 09/04/20 21:01 Insulin Aspart (NovoLOG) 10 units BEFORE MEALS SUBQ 09/04/20 11:30 11/28/20 06:29 09/04/20 16:29 Insulin Detemir (Levemir) 18 units Q12HR SUBQ 09/04/20 21:00 11/25/20 09:29 09/04/20 21:02 Magnesium Oxide (Mag-Ox 400mg) 400 mg THREE TIMES A DAY ORAL 09/01/20 13:00 10/01/20 12:59 09/04/20 17:14 Metoprolol Tartrate (Lopressor) 75 mg Q12HR ORAL 08/30/20 21:00 11/28/20 20:59 09/04/20 20:52 Pantoprazole (Protonix) 40 mg DAILY ORAL 08/29/20 12:15 09/28/20 12:14 09/04/20 08:22 Phosphorus (Phospha 250 Neutral) 250 mg THREE TIMES A DAY ORAL 09/05/20 09:00 10/01/20 12:59 Prateek Dee MD Sep 04, 2020 23:48
[2020-09-05] VITALS: BP 166/91
[2020-09-05 04:00] VITALS: BP 153/86
[2020-09-05] MEDS: NovoLOG Insulin Flexpen SUBQ SCH ×3 (06:00→12:27)
[2020-09-05 06:42] LABS: BASOPHILS % (AUTO) 1.1 % (0.0-2.0); EOSINOPHILS % (AUTO) 0.8 % (0.0-3.0); HEMATOCRIT 38.9 % (42.0-52.0); HEMOGLOBIN 12.7 G/DL (14.2-18.0); LYMPHOCYTES % (AUTO) 12.8 % (20.0-45.0); MEAN CORPUSCULAR VOLUME 93 FL (80-99); MONOCYTES % (AUTO) 10.1 % (1.0-10.0); NEUTROPHILS % (AUTO) 75.1 % (45.0-75.0); PLATELET COUNT 617 K/UL (150-450); RED BLOOD COUNT 4.18 M/UL (4.70-6.10); RED CELL DISTRIBUTION WIDTH 12.9 % (11.6-14.8); WHITE BLOOD COUNT 11.2 K/UL (4.8-10.8)
--- NOTE | 2020-09-05 06:43 | General Progress Note ---
Subjective Allergies: Coded Allergies: No Known Allergies (Unverified , 08/25/20) Subjective events noted interval notes reviewed glucose on lower side this morning - Novolog was held Item Value Date Time Bedside Blood Glucose 78 mg/dl 09/05/20 0622 Bedside Blood Glucose 182 mg/dl H 09/04/20 2102 Bedside Blood Glucose 267 mg/dl H 09/04/20 1630 Bedside Blood Glucose 317 mg/dl H 09/04/20 1222 Bedside Blood Glucose 187 mg/dl H 09/04/20 0830 Bedside Blood Glucose 187 mg/dl H 09/04/20 0603 Objective Last 24 Hour Vital Signs Date Time Temp Pulse Resp B/P (MAP) Pulse Ox O2 Delivery O2 Flow Rate FiO2 09/05/20 04:00 77 09/05/20 04:00 98.3 77 20 153/86 (108) 92 09/05/20 00:00 66 09/05/20 00:00 98.1 66 20 166/91 (116) 91 09/04/20 21:00 Room Air 09/04/20 20:52 88 149/80 09/04/20 20:00 99 09/04/20 20:00 97.9 88 19 149/80 (103) 93 09/04/20 19:00 93 Room Air 21 09/04/20 16:00 85 09/04/20 16:00 97.7 90 22 157/84 (108) 93 09/04/20 12:00 77 09/04/20 12:00 97.7 83 22 154/80 (104) 91 09/04/20 09:00 Room Air 09/04/20 08:23 71 140/77 09/04/20 08:00 97.7 107 22 158/79 (105) 100 09/04/20 08:00 90 09/04/20 07:00 93 Room Air 21 Intake and Output 09/04/20 09/05/20 19:00 07:00 Intake Total 600 ml 780 ml Output Total 650 ml Balance -50 ml 780 ml Intake Oral 400 ml 780 ml IV Total 200 ml Output Urine Total 650 ml # Voids 5 3 Laboratory Tests 09/04/20 09:38: White Blood Count 14.7H, Red Blood Count 4.14L, Hemoglobin 12.5L, Hematocrit 37.2L, Mean Corpuscular Volume 90, Mean Corpuscular Hemoglobin 30.2, Mean Corpuscular Hemoglobin Concent 33.6, Red Cell Distribution Width 14.7, Platelet Count 592H, Mean Platelet Volume 6.3L, Neutrophils (%) (Auto) 78.7H, Lymphocytes (%) (Auto) 9.6L, Monocytes (%) (Auto) 9.0, Eosinophils (%) (Auto) 0.6, Basophils (%) (Auto) 2.2H, Sodium Level 133L, Potassium Level 3.2L, Chloride Level 98, Carbon Dioxide Level 28, Anion Gap 7, Blood Urea Nitrogen 13, Creatinine 0.8, Estimat Glomerular Filtration Rate > 60, Glucose Level 260H, Calcium Level 9.3, Phosphorus Level 3.6, Magnesium Level 1.5L, Total Bilirubin 0.4, Aspartate Amino Transf (AST/SGOT) 31, Alanine Aminotransferase (ALT/SGPT) 74, Alkaline Phosphata se 111, C-Reactive Protein, Quantitative [Pending], Total Protein 7.0, Albumin 2.0L, Globulin 5.0, Albumin/Globulin Ratio 0.4L 09/04/20 12:04: POC Whole Blood Glucose 317H 09/05/20 04:50: White Blood Count [Pending], Red Blood Count [Pending], Hemoglobin [Pending], Hematocrit [Pending], Mean Corpuscular Volume [Pending], Mean Corpuscular Hemog lobin [Pending], Mean Corpuscular Hemoglobin Concent [Pending], Red Cell Distribution Width [Pending], Platelet Count [Pending], Mean Platelet Volume [Pending], Neutrophils (%) (Auto) [Pending], Lymphocytes (%) (Auto) [Pending], Monocytes (%) (Auto) [Pending], Eosinophils (%) (Auto) [Pending], Basophils (%) (Auto) [Pending], Sodium Level [Pending], Potassium Level [Pending], Chloride Level [Pending], Carbon Dioxide Level [Pending], Blood Urea Nitrogen [Pending], Creatinine [Pending], Estimat Glomerular Filtration Rate [Pending], Glucose Level [Pending], Calcium Level [Pending], Phosphorus Level [Pending], Magnesium Level [Pending], Total Bilirubin [Pending], Aspartate Amino Transf (AST/SGOT) [Pending], Alanine Aminotransferase (ALT/SGPT) [Pending], Alkaline Phosphatase [Pending], Total Protein [Pending], Albumin [Pending], Globulin [Pending] 09/05/20 05:57: POC Whole Blood Glucose 78 Height (Feet): 5 Height (Inches): 7.00 Weight (Pounds): 198 Objective Current Medications Medications (Trade) Dose Ordered Sig/Orion Route PRN Reason Start Time Stop Time Status Last Admin Dose Admin Acetaminophen (Tylenol) 1,000 mg Q6H PRN ORAL Mild Pain (Pain Scale 1-3) 08/28/20 08:45 09/27/20 08:44 08/28/20 12:14 Albuterol Sulfate (Proventil MDI) 2 puff Q4H PRN INH Shortness of Breath 08/26/20 11:30 11/24/20 11:29 08/28/20 06:02 Dextrose (Dextrose 50%) 25 ml Q30M PRN IV Hypoglycemia 08/25/20 20:00 11/23/20 19:59 Dextrose (Dextrose 50%) 50 ml Q30M PRN IV Hypoglycemia 08/25/20 20:00 11/23/20 19:59 Docusate Sodium (Colace) 100 mg TWICE A DAY ORAL 08/29/20 18:00 09/28/20 17:59 09/04/20 17:14 Enoxaparin Sodium (Lovenox) 40 mg DAILY SUBQ 08/26/20 09:00 11/24/20 08:59 09/04/20 08:25 Insulin Aspart (NovoLOG) BEFORE MEALS AND HS SUBQ 08/25/20 21:00 11/23/20 20:59 09/04/20 21:01 Insulin Aspart (NovoLOG) 10 units BEFORE MEALS SUBQ 09/04/20 11:30 11/28/20 06:29 09/04/20 16:29 Insulin Detemir (Levemir) 18 units Q12HR SUBQ 09/04/20 21:00 11/25/20 09:29 09/04/20 21:02 Magnesium Oxide (Mag-Ox 400mg) 400 mg THREE TIMES A DAY ORAL 09/01/20 13:00 10/01/20 12:59 09/04/20 17:14 Metoprolol Tartrate (Lopressor) 75 mg Q12HR ORAL 08/30/20 21:00 11/28/20 20:59 09/04/20 20:52 Pantoprazole (Protonix) 40 mg DAILY ORAL 08/29/20 12:15 09/28/20 12:14 09/04/20 08:22 Phosphorus (Phospha 250 Neutral) 250 mg THREE TIMES A DAY ORAL 09/05/20 09:00 10/01/20 12:59 Assessment/Plan Problem List: (1) COVID-19 ICD Codes: U07.1 - COVID-19 SNOMED: 939936017 (2) Pneumonia ICD Codes: J18.9 - Pneumonia, unspecified organism SNOMED: 257279806 (3) DMII (diabetes mellitus, type 2) ICD Codes: E11.9 - Type 2 diabetes mellitus without complications SNOMED: 06353660 Assessment/Plan: reduce Levemir to 24 units qhs reduce Novolog to 8 units ac tid continue Novolog sliding scale ac hs hypoglycemia protocol in order Jasvir Knutson MD Sep 05, 2020 06:42
[2020-09-05 07:14] LABS: ALANINE AMINOTRANSFERASE 81 U/L (12-78); ALBUMIN 2.1 G/DL (3.4-5.0); ALBUMIN/GLOBULIN RATIO 0.4 (1.0-2.7); ALKALINE PHOSPHATASE 117 U/L (46-116); ANION GAP 6 mmol/L (5-15); ASPARTATE AMINO TRANSFERASE 29 U/L (15-37); BILIRUBIN,TOTAL 0.5 MG/DL (0.2-1.0); BLOOD UREA NITROGEN 10 mg/dL (7-18); CALCIUM 9.3 MG/DL (8.5-10.1); CARBON DIOXIDE 29 MMOL/L (21-32); CHLORIDE 102 MMOL/L (98-107); CREATININE 0.7 MG/DL (0.55-1.30); POTASSIUM 3.6 MMOL/L (3.5-5.1); SODIUM 137 MMOL/L (136-145)
[2020-09-05 08:00] VITALS: BP_SYST 126; BP_SYST 128; BP_DIAS 64; BP_DIAS 83
[2020-09-05] MEDS: Docusate 100mg cap ORAL SCH (08:09)
[2020-09-05] MEDS: Magnesium Oxide 400mg tab ORAL SCH ×2 (08:10→12:35)
[2020-09-05] MEDS: Phospha 250 Neutral tab ORAL SCH ×2 (08:10→12:35)
[2020-09-05] MEDS ORDERED: Enoxaparin 60mg Inj SUBQ SCH (09:45)
--- NOTE | 2020-09-05 09:46 | Pulmonology Progress Note ---
Subjective Constitutional: Reports: fever Allergies: Coded Allergies: No Known Allergies (Unverified , 08/25/20) Subjective now on RA, no resp distress occasional dry cough no fevers, + mild leukocytosis , possibly due to steroids ( completed now), trending down denies CP completed Remdesivir and steroids Objective Last 24 Hour Vital Signs Date Time Temp Pulse Resp B/P (MAP) Pulse Ox O2 Delivery O2 Flow Rate FiO2 09/05/20 08:10 95 128/83 09/05/20 08:00 97.5 95 20 128/83 (98) 92 09/05/20 04:00 77 09/05/20 04:00 98.3 77 20 153/86 (108) 92 09/05/20 00:00 66 09/05/20 00:00 98.1 66 20 166/91 (116) 91 09/04/20 21:00 Room Air 09/04/20 20:52 88 149/80 09/04/20 20:00 99 09/04/20 20:00 97.9 88 19 149/80 (103) 93 09/04/20 19:00 93 Room Air 21 09/04/20 16:00 85 09/04/20 16:00 97.7 90 22 157/84 (108) 93 09/04/20 12:00 77 09/04/20 12:00 97.7 83 22 154/80 (104) 91 Intake and Output 09/04/20 09/05/20 19:00 07:00 Intake Total 600 ml 780 ml Output Total 650 ml Balance -50 ml 780 ml Intake Oral 400 ml 780 ml IV Total 200 ml Output Urine Total 650 ml # Voids 5 3 Objective General Appearance: no apparent distress Lines, tubes and drains: peripheral HEENT: normocephalic, atraumatic, anicteric, mucous membranes moist, PERRL, on RA Neck: supple Respiratory/Chest: chest wall non-tender, BS decreased, Cardiac: normal rate, regular rhythm - SR Abdomen: normal bowel sounds, non tender, soft Extremities: normal range of motion, no calf tenderness, normal capillary refill Skin Exam: warm/dry 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, no motor/sensory deficits, alert, oriented x 3, responsive Musculoskeletal: normal muscle bulk Laboratory Tests 09/04/20 09:38: White Blood Count 14.7H, Red Blood Count 4.14L, Hemoglobin 12.5L, Hematocrit 37.2L, Mean Corpuscular Volume 90, Mean Corpuscular Hemoglobin 30.2, Mean Corpuscular Hemoglobin Concent 33.6, Red Cell Distribution Width 14.7, Platelet Count 592H, Mean Platelet Volume 6.3L, Neutrophils (%) (Auto) 78.7H, Lymphocytes (%) (Auto) 9.6L, Monocytes (%) (Auto) 9.0, Eosinophils (%) (Auto) 0.6, Basophils (%) (Auto) 2.2H, Sodium Level 133L, Potassium Level 3.2L, Chloride Level 98, Carbon Dioxide Level 28, Anion Gap 7, Blood Urea Nitrogen 13, Creatinine 0.8, Estimat Glomerular Filtration Rate > 60, Glucose Level 260H, Calcium Level 9.3, Phosphorus Level 3.6, Magnesium Level 1.5L, Total Bilirubin 0.4, Aspartate Amino Transf (AST/SGOT) 31, Alanine Aminotransferase (ALT/SGPT) 74, Alkaline Phosphatase 111, C-Reactive Protein, Quantitative 73.7, Total Protein 7.0, Albumin 2.0L, Globulin 5.0, Albumin/Globulin Ratio 0.4L 09/04/20 12:04: POC Whole Blood Glucose 317H 09/05/20 04:50: White Blood Count 11.2H, Red Blood Count 4.18L, Hemoglobin 12.7L, Hematocrit 38.9L, Mean Corpuscular Volume 93, Mean Corpuscular Hemoglobin 30.2, Mean Corpuscular Hemoglobin Concent 32.5, Red Cell Distribution Width 12.9, Platelet Count 617H, Mean Platelet Volume 6.3L, Neutrophils (%) (Auto) 75.1H, Lymphocytes (%) (Auto) 12.8L, Monocytes (%) (Auto) 10.1H, Eosinophils (%) (Auto) 0.8, Basophils (%) (Auto) 1.1, Sodium Level 137, Potassium Level 3.6, Chloride Level 102, Carbon Dioxide Level 29, Anion Gap 6, Blood Urea Nitrogen 10, Creatinine 0.7, Estimat Glomerular Filtration Rate > 60, Glucose Level 68#L, Calcium Level 9.3, Phosphorus Level 4.4, Magnesium Level 1.9, Total Bilirubin 0.5, Aspartate Amino Transf (AST/SGOT) 29, Alanine Aminotransferase (ALT/SGPT) 81H, Alkaline Phosphatase 117H, Total Protein 7.3, Albumin 2.1L, Globulin 5.2, Albumin/Globulin Ratio 0.4L 09/05/20 05:57: POC Whole Blood Glucose 78 Current Medications Medications (Trade) Dose Ordered Sig/Orion Route PRN Reason Start Time Stop Time Status Last Admin Dose Admin Acetaminophen (Tylenol) 1,000 mg Q6H PRN ORAL Mild Pain (Pain Scale 1-3) 08/28/20 08:45 09/27/20 08:44 08/28/20 12:14 Albuterol Sulfate (Proventil MDI) 2 puff Q4H PRN INH Shortness of Breath 08/26/20 11:30 11/24/20 11:29 08/28/20 06:02 Dextrose (Dextrose 50%) 25 ml Q30M PRN IV Hypoglycemia 08/25/20 20:00 11/23/20 19:59 Dextrose (Dextrose 50%) 50 ml Q30M PRN IV Hypoglycemia 08/25/20 20:00 11/23/20 19:59 Docusate Sodium (Colace) 100 mg TWICE A DAY ORAL 08/29/20 18:00 09/28/20 17:59 09/05/20 08:09 Enoxaparin Sodium (Lovenox) 40 mg DAILY SUBQ 08/26/20 09:00 11/24/20 08:59 09/04/20 08:25 Insulin Aspart (NovoLOG) BEFORE MEALS AND HS SUBQ 08/25/20 21:00 11/23/20 20:59 09/04/20 21:01 Insulin Aspart (NovoLOG) 8 units BEFORE MEALS SUBQ 09/05/20 11:30 11/28/20 06:29 Insulin Detemir (Levemir) 24 units QHS SUBQ 09/05/20 21:00 11/25/20 09:29 Magnesium Oxide (Mag-Ox 400mg) 400 mg THREE TIMES A DAY ORAL 09/01/20 13:00 10/01/20 12:59 09/05/20 08:10 Metoprolol Tartrate (Lopressor) 75 mg Q12HR ORAL 08/30/20 21:00 11/28/20 20:59 09/05/20 08:10 Pantoprazole (Protonix) 40 mg DAILY ORAL 08/29/20 12:15 09/28/20 12:14 09/05/20 08:09 Phosphorus (Phospha 250 Neutral) 250 mg THREE TIMES A DAY ORAL 09/05/20 09:00 10/01/20 12:59 09/05/20 08:10 Assessment/Plan Assessment/Plan ASSESSMENT COVID 19 pneumonia Acute hypoxemic resp failure due to COVID 19 PNA-resolved Hypokalemia /persistent Hypo Mg DM with hyperglycemia/DMOOC HTN PLAN OF CARE tele Date of sx onset: 1 week prior to ED presentation on 08/25 Positive test: 08/25 rapid COVID 19 + O2 RA HFA s/p REM x 5 days ( 08/25-08/29) s/p Dex x 10 days ( 08/25-09/03) DVT PPX: Lovenox D dimer -0.97 Venous Duplex BLE NGT trend CRP- 42-11.1 prone position encouraged as tolerated s/p abx as per ID recs CXR 09/03 unchanged BL pulm opacities, concerning for PNA CT chest - > Airspace and interstitial pulmonary infiltrates, right lung greater than left, c/w multilobar pneumonia ECHO with pEF monitor volumes and renal function fup with consultants recs FC continue monitor resp status, ( was on NRM for days), pulse ox remains stable on RA recheck CBC in am ( leuk probably due to steroids), leuk trending down, mild CT chest noted c/w multilobar PNA diabetic diet and diabetic teaching [id number] not at goal BS as per endo recs, BS better - home on insulin BP management, now better with new increased dose of Metoprolol supportive care dc today fup with PMD in 1 week no need for isolation , given symptoms started 1 weeks prior to ED presentation and since presentation 08/25 more than 10 days case discussed and evaluated by supervising physician Zoë Martinez NP Sep 05, 2020 09:46 Carmelo Combs MD Sep 05, 2020 21:27
[2020-09-05] MEDS ORDERED: LOPRESSOR25 M1 ORAL (09:50)
[2020-09-05] MEDS ORDERED: NOVOLOG100 UNITS1 SUBQ (09:50)
[2020-09-05] MEDS ORDERED: LEVEMIR FL100 UNIT/1 SUBQ (09:50)
[2020-09-05] MEDS ORDERED: NovoLOG Insulin Flexpen SUBQ SCH (11:30)
[2020-09-05 12:00] VITALS: BP 134/73
--- NOTE | 2020-09-05 12:10 | Diagnostic Imaging Report ---
Indication: Shortness of breath Technique: One view of the chest Comparison: 09/02/2020 Findings: Bilateral right greater than left infiltrates are unchanged. The heart size is normal. The pleural spaces are clear Impression: Unchanged, over 3 days, findings as above.
--- NOTE | 2020-09-05 13:16 | Nephrology Progress Note ---
Assessment/Plan Problem List: (1) Dehydration (2) Electrolyte imbalance (3) COVID-19 (4) Pneumonia (5) Diabetic nephropathy (6) DMII (diabetes mellitus, type 2) Assessment Low sodium Low potassium Low magnesium Diabetes mellitus, hyperglycemia 4+ proteinuria, hypoalbuminemia COVID-19 pneumonia, hypoxia Hypertension Plan September 05: Labs reviewed. Renal parameters stable. Continue per consultants. September 04: Labs reviewed. Low sodium low magnesium and low phosphorus addressed. Continue rest. September 03: No labs drawn today. Will check lab tomorrow. Remains stable from renal standpoint of view. Medication list reviewed. September 02: Labs reviewed. Renal parameters are stable. Continue per consultants. August 31: Labs reviewed. Abnormal electrolytes addressed. Continue to monitor electrolytes. Per consultants. August 30: Labs reviewed. Sodium 133. Potassium and magnesium level are within normal limits. Continue per consultants. Previously: Mag, potassium supplement Monitor electrolytes and chemistries Check vitamin D level 24-hour urine collection for total protein Continue per consultants Subjective ROS Limited/Unobtainable: No Constitutional: Reports: malaise Objective Objective Last 24 Hour Vital Signs Date Time Temp Pulse Resp B/P (MAP) Pulse Ox O2 Delivery O2 Flow Rate FiO2 09/05/20 12:00 77 09/05/20 12:00 97.7 73 20 134/73 (93) 92 09/05/20 09:00 Room Air 09/05/20 08:10 95 128/83 09/05/20 08:00 93 09/05/20 08:00 97.5 95 20 128/83 (98) 92 09/05/20 04:00 77 09/05/20 04:00 98.3 77 20 153/86 (108) 92 09/05/20 00:00 66 09/05/20 00:00 98.1 66 20 166/91 (116) 91 09/04/20 21:00 Room Air 09/04/20 20:52 88 149/80 09/04/20 20:00 99 09/04/20 20:00 97.9 88 19 149/80 (103) 93 09/04/20 19:00 93 Room Air 21 09/04/20 16:00 85 09/04/20 16:00 97.7 90 22 157/84 (108) 93 Intake and Output 09/04/20 09/05/20 19:00 07:00 Intake Total 600 ml 780 ml Output Total 650 ml Balance -50 ml 780 ml Intake Oral 400 ml 780 ml IV Total 200 ml Output Urine Total 650 ml # Voids 5 3 Laboratory Tests 09/05/20 04:50: White Blood Count 11.2H, Red Blood Count 4.18L, Hemoglobin 12.7L, Hematocrit 38.9L, Mean Corpuscular Volume 93, Mean Corpuscular Hemoglobin 30.2, Mean Corpuscular Hemoglobin Concent 32.5, Red Cell Distribution Width 12.9, Platelet Count 617H, Mean Platelet Volume 6.3L, Neutrophils (%) (Auto) 75.1H, Lymphocytes (%) (Auto) 12.8L, Monocytes (%) (Auto) 10.1H, Eosinophils (%) (Auto) 0.8, Basophils (%) (Auto) 1.1, Sodium Level 137, Potassium Level 3.6, Chloride Level 102, Carbon Dioxide Level 29, Anion Gap 6, Blood Urea Nitrogen 10, Creatinine 0.7, Estimat Glomerular Filtration Rate > 60, Glucose Level 68#L, Calcium Level 9.3, Phosphorus Level 4.4, Magnesium Level 1.9, Total Bilirubin 0.5, Aspartate Amino Transf (AST/SGOT) 29, Alanine Aminotransferase (ALT/SGPT) 81H, Alkaline Phosphatase 117H, Total Protein 7.3, Albumin 2.1L, Globulin 5.2, Albumin/Globulin Ratio 0.4L 09/05/20 05:57: POC Whole Blood Glucose 78 09/05/20 11:27: POC Whole Blood Glucose 304H Height (Feet): 5 Height (Inches): 7.00 Weight (Pounds): 198 General Appearance: no apparent distress Cardiovascular: normal rate Respiratory/Chest: decreased breath sounds Abdomen: distended Tod Orona MD Sep 05, 2020 13:16
[2020-09-05] MEDS ORDERED: Levemir Flexpen SUBQ SCH (21:00)
[2020-09-06] MEDS ORDERED: Enoxaparin 40mg Inj SUBQ SCH (09:00)
--- NOTE | 2020-09-07 02:28 | Cardiology Report ---
APPROVED REPORT EKG Measurement Heart [id number] <Conclusion> Normal sinus rhythm with sinus arrhythmia Minimal voltage criteria for LVH, may be normal variant Prolonged QT Abnormal ECG
--- NOTE | 2020-09-07 19:17 | Cardiology Report ---
APPROVED REPORT EXAM: Two-dimensional and M-mode echocardiogram with Doppler and color Doppler. INDICATION Congestive Heart Failure M-Mode DIMENSIONS IVSd0.9 (0.7-1.1cm)Left Atrium (MM)2.8 (1.6-4.0cm) LVDd4.6 (3.5-5.6cm)Aortic Root2.6 (2.0-3.7cm) PWd0.9 (0.7-1.1cm)Aortic Cusp Exc.1.7 (1.5-2.0cm) IVSs1.7 cmEPSS0.3 (>1.0cm) LVDs3.0 (2.5-4.0cm) PWs1.5 cm <Conclusion> Technically difficult study due to poor parasternal acoustical windows. Normal left ventricular chamber size, systolic function and wall motion to extent visualized. Left ventricular ejection fraction estimated to be 65 %. Anterior Echo-free space, may be due to pericardial fat or effusion. Left atrial size at upper limits of normal. Right cardiac chamber sizes are within normal limits. Focal aortic valve sclerosis with adequate cusp excursion. Thickened mitral valve leaflets with normal excursion. Mild mitral annulus and aortic root calcification. Pulmonic valve not well visualized. Normal tricuspid valve structure. IVC at normal size with physiologic collapse. A color flow and spectral Doppler study was performed and revealed: Mild aortic regurgitation. Mild to moderate mitral regurgitation. Mitral diastolic velocities suggest reduced left ventricular relaxation c/w mild LV diastolic dysfunction (Grade I ). Trace tricuspid regurgitation. Tricuspid systolic velocities suggests peak right ventricular systolic pressure of 14 mmHg. Trace pulmonic regurgitation present.
--- NOTE | 2020-09-08 13:26 | Discharge Summary ---
Discharge Summary Discharge Summary _ DATE OF ADMISSION: 08/25/2020 DATE OF DISCHARGE: 09/05/2020 DISCHARGED BY: REASON FOR ADMISSION: 75 years old male with past medical history of diabetes mellitus, hypertension, presented for evaluation due to shortness of breath. Upon evaluation he was hypoxic, slightly tachypneic , blood pressure was elevated. Chest x-ray revealed bilateral infiltrates, likely multifocal pneumonia. Rapid COVID-19 was positive. Laboratory work-up revealed no leukocytosis , stable hemoglobin, hematocrit and platelet count. Inflammatory markers revealed D-dimer 0.97, LDH 321, CRP 42 and ferritin 329. Chemistry showed hypokalemia with potassium 2.6. Stable renal parameters. Glucose 285. Urinalysis revealed +4 protein , +4 glucose , but no evidence of urinary tract infection. In emergency department patient received empiric antibiotic, Lovenox, dexamethasone, potassium replacement, was placed on supplemental oxygen and admitted for further management. CONSULTANTS: ID specialist [employer] Developer Dr. Knutson Head Of Ict Dr. [place] HOSPITAL COURSE: Patient admitted to telemetry floor isolation room. Patient initially required 100% nonrebreather mask. Supplemental oxygen provided and titrated to keep pulse oximetry above 92%. HFA provided. Patient undergone 5-day treatment with remdesivir and 10-day treatment with dexamethasone. DVT prophylaxis with Lovenox provided. Venous duplex bilateral lower extremity was negative. CRP trended down to 11.1. Prone position was encouraged as tolerated. Patient received antibiotic as per ID recommendation. Patient was followed-up with chest x-ray and CT of the chest . CT of the chest revealed airspace and interstitial pulmonary infiltrates, right greater than left, consistent with multifocal pneumonia. Echocardiogram revealed preserved ejection fraction. Volumes and renal function were closely monitored. As patient improved he was able to be weaned from nonrebreather mask to oxygen via nasal cannula ' and prior to discharge pulse oximetry was stable on room air. Diabetic diet and diabetic teaching provided. Hemoglobin A1c 12.5, clearly not at goal. Hyperglycemia worsened due to steroids. Blood sugar was managed as per retirement officer recommendation. Patient was on long-acting Levemir , premeal short acting insulin and sliding scale of insulin as needed. On discharge prescription for insulin provided. Blood sugar improved. Blood pressure was closely monitored and managed with metoprolol. Potassium and magnesium were replaced. Patient clinically stabilized and was ready for discharge. No need for isolation given initial diagnosis was 08/25 , more than 10 days ago. FINAL DIAGNOSES: COVID-19 pneumonia Acute hypoxemic respiratory failure due to COVID-19 pneumonia -resolved Hypokalemia Hypomagnesemia Diabetes mellitus with hyperglycemia/diabetes mellitus [id number] Hypertension DISCHARGE MEDICATIONS: See Medication Reconciliation list. DISCHARGE INSTRUCTIONS: Follow-up with a primary care provider in 1 week. Zoë Martinez NP Sep 08, 2020 13:26
== END 2020-09-05 14:14 | disposition home or self-care (01) | DRG 177 ==
LOC: EMR 10:27 → 2E 13:52 → EDBEDREQSVC 14:54 → EDBEDREQ 14:55 → 2E 09-04 08:21
DX: U07.1 COVID-19 (principal); J96.01 Acute respiratory failure with hypoxia; J12.82 Pneumonia due to coronavirus disease 2019; E11.65 Type 2 diabetes mellitus with hyperglycemia; I10 Essential (primary) hypertension; E87.6 Hypokalemia; E11.21 Type 2 diabetes mellitus with diabetic nephropathy; D72.829 Elevated white blood cell count, unspecified; T38.0X5A Adverse effect of glucocorticoids and synthetic analogues, initial encounter; E86.0 Dehydration; Z79.4 Long term (current) use of insulin; E83.42 Hypomagnesemia
CPT/HCPCS: 36415; 71045; 71250; 80053; 80061; 81003; 81050; 82248; 82306; 82550; 82553; 82607; 82728; 82746; 82962; 82977; 83036; 83540; 83550; 83605; 83615; 83690; 83735; 83880; 84100; 84156; 84443; 84484; 84550; 85025; 85379; 85610; 85730; 86140; 86710; 87040; 93005; 93306; 93970; 96361; 96365; 96367; 96375; 99291; C9399; J1815; J3490; J7030; J8499; S5561; U0002